=== PATIENT | male | born 1955 | race Caucasian/White ===

== ENCOUNTER 2018-07-16 14:17 | Inpatient (IN) ==
--- NOTE | 2018-07-16 15:01 | PROVIDER DOCUMENTATION ---
This chart was entered by Noemi Rolon Scribe, acting as scribe for Justa Tse MD. HPI-Rash/Wound/ReCheck - General Chief Complaint: Seizure Stated Complaint: seizure Time Seen by Provider: 07/16/18 14:36 Source: patient Allergies/Adverse Reactions: Allergies Allergy/AdvReac Type Severity Reaction Status Date / Time No Known Allergies Allergy Verified 12/07/17 11:50 Home Medications: Home Medication List Medication Instructions Recorded Confirmed Last Taken Type Sertraline [Zoloft] 100 mg PO DAILY 12/07/17 07/16/18 04/24/18 History Dronabinol [Marinol] 5 mg PO BID 03/12/18 07/16/18 04/24/18 History Ondansetron HCl [Zofran] 4 mg PO Q6-8H PRN PRN 03/26/18 07/16/18 04/24/18 History Hydrocodone/Acetaminophen [[place] 7.5 each PO Q6H PRN PRN 04/24/18 07/16/1804/24 History 7.5-325 Tablet] Dexamethasone 4 mg PO TID 07/16/18 07/16/18 Unknown History Digoxin 125 mcg PO DAILY 07/16/18 07/16/18 Unknown History - History of Present Illness-Dermatology Nature of Presenting Problem: Patient is a 63 year old male who presents to the ED with pain and erythema to right inner elbow post IV access last Sunday, 4 daysago. Patient states symptoms have been present for 3 days. Patient has a history of colon cancer with mets to liver. Patient does not report fever. Seen at [facility] today and had a witness focal seizure by staff. Concern about mets to brain. Location: reports: upper extremity (right inner elbow) Quality: reports: painful Severity: reports: moderate Onset/Duration: reports: 3 days ago Timing: reports: still present Context/Associated Symptoms: reports: other (erythema) Locality of Occurance: Home Similar Symptoms Previously?: Yes Recently seen or treated by another doctor?: Yes Review of Systems - Adult - REVIEW OF SYSTEMS - ADULT Constitutional: reports: no symptoms reported Eyes: reports: no symptoms reported Ears, Nose, Mouth & Throat: reports: no symptoms reported Cardiovascular: reports: no symptoms reported Respiratory: reports: no symptoms reported Gastrointestinal: reports: no symptoms reported Genitourinary: reports: no symptoms reported Musculoskeletal: reports: other (right inner elbow pain). denies: back pain, joint pain, neck pain Integumentary: reports: other (erythema to right inner elbow). denies: hives, itching, rash Neurological: reports: no symptoms reported Psychiatric: reports: no symptoms reported Endocrine: reports: no symptoms reported Hematologic/Lymphatic: reports: no symptoms reported Allergic/Immunologic: reports: no symptoms reported All Other Systems: Reviewed and Negative Past History - Adult - PAST MEDICAL HISTORY-ADULT Review of Records: reports: Nursing Assessment Review, Medications Reviewed, Social history reviewed & non-contributory. Major Childhood Illnesses: reports: denies history Cardiovascular: reports: A-Fib Respiratory: reports: denies history Gastrointestinal: reports: cancer, hepatitis, ulcer Obstetrical/Gynecological: reports: denies history Genitourinary: reports: kidney stones Musculoskeletal: reports: denies history Neurological: reports: denies history Psychiatric: reports: anxiety, bipolar Endocrine/Immune: reports: denies history Other Conditions: reports: denies history - PRIOR SURGERIES/PROCEDURES Surgical/Procedure History: reports: bowel surgery, gastric bypass - IMMUNIZATION STATUS Childhood Immunizations: See Nurse Assessment Flu Vaccine: See Nurse Assessment - FAMILY HISTORY Family History: reviewed, not pertinent - SOCIAL HISTORY Smoking: cigarettes, less than 1 pack/day Provider spent 3-5 mins advising pt. on dangers of tobacco.: Discussed manners to quit use, and f/u contacts for add'l counseling. Substance Use: alcohol Alcohol Use Frequency: occasionally Physical Exam-General - CONSTITUTIONAL General Appearance: no apparent distress - EYES Eyes: pink conjunctivae - HEAD, EARS, NOSE, MOUTH & THROAT HENMT: moist mucous membranes - NECK Neck: supple - RESPIRATORY Respiratory: lungs clear, normal breath sounds, no pleuratic chest pain, no accessory muscle use - CARDIOVASCULAR Cardiovascular: normal peripheral pulses - GASTROINTESTINAL (ABDOMEN) Abdominal Exam: non tender, soft, other (diminished bowel sounds diffusely) - MUSCULOSKELETAL Extremity: other (RUE AC area diffuse redness moving up arm, no induration or fluctuance, tender, good cap refill and pulses) - SKIN Integumentary: normal turgor, warm/dry - NEUROLOGIC Neurologic: grossly normal, no motor/sensory deficits - PSYCHIATRIC Psych/Mental Status: normal mood/affect, normal thought content, normal thought process, oriented x 3 Progress - PLAN OF CARE/RESULTS Progress/Plan/Lab Results: Vital Signs - 8 hr 07/16/18 14:29 07/16/18 16:01 Temperature 98.1 F Pulse Rate 110 H 85 Respiratory Rate 18 18 Blood Pressure 117/83 134/78 O2 Sat by Pulse Oximetry 98 96 Laboratory Results - last 24 hr 07/16/18 07/16/18 07/16/18 14:47 14:47 16:29 WBC 19.73 H RBC 3.39 L Hgb 11.2 L Hct 35.2 L MCV 103.8 H MCH 33.0 H MCHC 31.8 L RDW Std Deviation 17.1 H Plt Count 130 MPV 10.5 H Immature Gran % (Auto) 0.3 Neut % (Auto) 90.5 H Lymph % (Auto) 3.9 L [place] % (Auto) 4.9 Eos % (Auto) 0.3 Baso % (Auto) 0.1 Immature Gran # (Auto) 0.05 H Neut # (Auto) 17.88 H Lymph # (Auto) 0.76 L [place] # (Auto) 0.97 H Eos # (Auto) 0.06 Baso # (Auto) 0.01 Sodium 136 Potassium 4.3 Chloride 103 Carbon Dioxide 25 Anion Gap 8 BUN 23 H Creatinine 0.5 L Estimated GFR/1.73 m2 > 60 BUN/Creatinine Ratio 46 Glucose 112 H Calculated Osmolality 276 Calcium 8.6 L Total Bilirubin 0.88 AST 42 H ALT 53 H Alkaline Phosphatase 231 H Total Protein 5.7 L Albumin 3.3 L Globulin 2.4 Albumin/Globulin Ratio 1.4 Urine Source CLEAN CATCH Urine Color YELLOW Urine Turbidity CLEAR Urine pH 6.0 Ur Specific [place] 1.014 Urine Protein NEGATIVE Ur Glucose (Stick) NEGATIVE Ur Ketones (Stick) NEGATIVE Urine Blood LARGE A Urine Nitrite NEGATIVE Urine Bilirubin NEGATIVE Urobilinogen Dipstick NORMAL Urine Leukocytes TRACE A Urine WBC (Auto) <10 Urine RBC (Auto) TNTC A U Epithel Cells (Auto) <10 Urine Bacteria (Auto) NEGATIVE Orders Category Date Time Status CHEST-PORTABLE [RAD] Stat Exams 07/16/18 15:[address] HEAD W/O CONTRAST [CT] Stat Exams 07/16/18 15:04 Completed BLOOD CULTURE [BLDCUL] Stat Lab 07/16/18 14:47 Results CBC WITH ELECTRONIC DIFF [HEME] Stat Lab 07/16/18 14:47 Completed COMPREHENSIVE METABOLIC PANEL [CHEM] Stat Lab 07/16/18 14:47 Completed INFLUENZA SCREEN A/B Stat Lab 07/16/18 17:03 Uncollected URINALYSIS [URINALYSIS] Stat Lab 07/16/18 16:29 Completed 0.9% Sodium Chloride Inj [Ns] 1,000 ml Med 07/16/18 17:03 Active IV 125 mls/hr 0.9% Sodium Chloride Inj [Ns] 1,000 ml Med 07/16/18 15:07 Discontinued IV 500 mls/hr CefTRIAXONE [Rocephin] 1 gm Med 07/16/18 15:08 Discontinued 0.9% Sodium Chloride Inj [Ns] 50 ml IV NOW Vancomycin 1 gm/Ns Med 07/16/18 15:09 Discontinued 1 gm in 250 ml IV NOW Generalized Adult Illness >60 Stat Oth 07/16/18 15:01 Ordered EKG [EKG] Stat Ther 07/16/18 15:01 Draft d/w [place] 1716 HPI onc at his office cellulitis R arm, focal seizure, results treatment, admit to [facility] Result Diagrams: 07/16/18 14:47 07/16/18 14:47 - EKG 1 Time of EKG reading by physician:: 15:01 EKG Read and Signed by:: Justa Tse EKG Interpretation (*Must complete 3 of following elements*): Abnormal Rate: 117 Rhythm: atrial fibrillation with rapid ventricular response Comments: cannot rule out anterior infarct, age undetermined Departure - Departure Date of Disposition Decision: 07/16/18 Time of Disposition Decision: 17:06 DIAGNOSIS: Right arm cellulitis, Focal seizure, Colon cancer metastasized to liver Disposition: ADMITTED INPATIENT 09 Certified Medical Emergency: Emergent Condition: Good Additional Freetext Instructions: admit 1717 to [facility] Referrals and Follow-Ups: None,PCP [Primary Care Provider] - - Critical Care Note This patient required my direct & personal management of CC.: No Attestation - Physician/ MARGARET Attestation The physician spent face to face time with patient:: Yes Advanced Practice Provider documentation review:: Supervising physician onsite and consulted in the evaluation and care of this patient. The physician did have a face to face encounter with the patient. This chart was documented by the indicated scribe, (Noemi Rolon Scribe) and accurately reflects the services I performed and decisions made by me, Justa Tse MD, as attested by the provider's signature.
[2018-07-16] MEDS ORDERED: NS 1,000 ML IV ONE ×2 (15:07→17:03)
[2018-07-16] MEDS ORDERED: ROCEPHIN 1 GM in NS 50 ML IV ONE (15:08)
[2018-07-16] MEDS ORDERED: VANCOMYCIN 1 GM/NS 1 GM/250 ML IVPB IV ONE ×2 (15:09→22:00)
[2018-07-16 15:32] LABS: BASO# 0.01 X1000 (0.0-0.2); BASO% 0.1 % (0.0-0.8); EOS# 0.06 X1000 (0.0-0.7); EOS% 0.3 % (0.0-10.0); HEMATOCRIT 35.2 % (42.0-52.0); HEMOGLOBIN 11.2 g/dL (14.0-18.0); IMM GRAN# 0.05 X1000 (0.0-0.04); IMM GRAN% 0.3 % (0.0-0.5); LYMPH# 0.76 X1000 (1.2-3.4); LYMPH% 3.9 % (20.5-51.1); MCHC 31.8 g/dL (33-37); MCV 103.8 FL (81-99); MONO# 0.97 X1000 (0.11-0.59); MONO% 4.9 % (1.7-9.3); MPV 10.5 FL (7.4-10.4); NEUT# 17.88 X1000 (1.4-6.5); NEUT% 90.5 % (42.2-75.2); PLT 130 X1000 (130-400); RBC 3.39 XMIL (4.7-6.1); RDW 17.1 % (11.5-14.5); WBC 19.73 X1000 (4.8-10.8)
--- NOTE | 2018-07-16 15:42 | Diag Imaging Result Doc PS360 ---
EXAM: CT HEAD W/O CONTRAST HISTORY: seizure TECHNIQUE: CT head without contrast COMPARISON: 10/11/2017 FINDINGS: No parenchymal hemorrhage. No epidural or subdural hematoma. No subarachnoid hemorrhage. No mass identified on this noncontrasted exam. No hydrocephalus. No sinus opacification. IMPRESSION: No hemorrhage. Negative brain CT without contrast. This exam was performed using automated exposure control, adjustment of mA or kV according to patient size, and/or use of iterative reconstruction technique. Electronically signed by Devyn Hernandez 07/16/2018 3:40 PM
--- NOTE | 2018-07-16 15:43 | EKG Report ---
Test Performed on : 07/16/2018 3:01:46 PM Test Reason : weakness Blood Pressure : / mmHG Vent. Rate : 117 BPM Atrial Rate : 115 BPM P-R Int : 000 ms QRS Dur : 076 ms QT Int : 302 ms P-R-T Axes : 000 085 008 degrees QTc Int : 421 ms Atrial fibrillation. with rapid ventricular response. Cannot rule out Anterior infarct (cited on or before 08-NOV-2017) Abnormal ECG When compared with ECG of 08-NOV-2017 12:35, No significant change was found Unconfirmed Result
--- NOTE | 2018-07-16 15:49 | Diag Imaging Result Doc PS360 ---
EXAM: CHEST-PORTABLE HISTORY: weakness TECHNIQUE: Upright sitting chest single view COMPARISON: 11/08/2017 FINDINGS: The lungs are well expanded. The heart is not enlarged. There is a right jugular portacatheter. Tip is in the jugular vein. No pneumothorax. The vessels are not distended. There are no infiltrates. No effusion identified. IMPRESSION: No pneumonia. Electronically signed by Devyn Hernandez 07/16/2018 3:46 PM
[2018-07-16 16:09] LABS: AGAP 8; ALB/GLOB RATIO 1.4; ALBUMIN 3.3 g/dL (3.5-5.0); ALKALINE PHOSPHATASE 231 U/L (32-122); BUN 23 mg/dL (8-22); CALCIUM 8.6 mg/dL (8.8-10.2); CHLORIDE 103 mmol/L (98-107); COSMO 276; CREATININE 0.5 mg/dL (0.7-1.2); ESTIMATED GFR > 60; GLUCOSE 112 mg/dL (70-104); GOT 42 U/L (10-34); GPT 53 U/L (10-44); POTASSIUM 4.3 mmol/L (3.5-5.1); SODIUM 136 mmol/L (136-145); TCO2 25 mmol/L (25-35); TOTAL BILIRUBIN 0.88 mg/dL (0.20-1.00); TOTAL PROTEIN 5.7 g/dL (6.3-8.3)
[2018-07-16 16:40] LABS: URINE SOURCE CLEAN CATCH
[2018-07-16 16:42] LABS: BILIRUBIN URINE NEGATIVE (NEGATIVE); BLOOD URINE LARGE (NEGATIVE); COLOR YELLOW; GLUCOSE URINE NEGATIVE (NEGATIVE); KETONE URINE NEGATIVE (NEGATIVE); LEUKOCYTES URINE TRACE (NEGATIVE); NITRITE URINE NEGATIVE (NEGATIVE); PROTEIN URINE NEGATIVE (NEGATIVE); SP GRAVITY URINE 1.014; TURBIDITY URINE CLEAR (CLEAR); UROBILINOGEN URINE NORMAL (NORMAL)
[2018-07-16 16:43] LABS: UR EPITHELIAL CELLS <10 /HPF (<10); URINE BACTERIA NEGATIVE /HPF; URINE RBC TNTC /HPF (<10); URINE WBC <10 /HPF (<10)
[2018-07-16] MEDS ORDERED: CARDIZEM IV ONE (18:01)
[2018-07-16] MEDS ORDERED: CARDIZEM 125/NS 125 MG/125 ML IVPB IV SCH (18:15)
--- NOTE | 2018-07-16 18:34 | Diag Imaging Result Doc PS360 ---
EXAM: ELBOW COMPLETE RIGHT HISTORY: ro osteo/abscess TECHNIQUE: Right elbow, three views COMPARISON: None. FINDINGS: No fracture. No dislocation. No periosteal reaction. No bone destruction. No erosions. IMPRESSION: No plain film evidence of osteomyelitis. Electronically signed by Devyn Hernandez 07/16/2018 6:32 PM
[2018-07-16] MEDS ORDERED: ATIVAN IV PRN (18:58)
[2018-07-16] MEDS ORDERED: ZOFRAN IV PRN (18:58)
[2018-07-16 19:34] LABS: INR 1.02; PROTIME 14.2 Seconds (11.0-16.0)
[2018-07-16 19:35] LABS: PTT 27.7 Seconds (22.3-41.8)
--- NOTE | 2018-07-16 19:56 | HISTORY AND PHYSICAL ---
ONCOLOGIST: Kris Fountain MD PRIMARY CARE PROVIDER: None. CHIEF COMPLAINT: Right upper extremity pain. The patient reports that he received chemo at [facility] in his peripheral vein and since that time, he has had soreness and now erythema and redness. HISTORY OF PRESENT ILLNESS: Mr. Echevarria is a 63-year-old male who is a patient of Dr. Fountain with a history of metastatic colon cancer, status post transverse diverting loop colostomy secondary to his metastatic obstructive colon cancer, atrial fibrillation and he states he has been taken off all his atrial fibrillation medications secondary to receiving chemo and interacting with the medications, tobacco dependence, GERD, anemia chronic disease, alcohol use of 1 to 2 beers per week. He was at Dr. Fountain's office today and per the staff, they believe they witnessed a focal seizure. However, patient has no recollection of this. His main concern is his right upper extremity pain. He does have redness, swelling, and erythema. We will get an x-ray of his upper extremity, rule out any osteomyelitis and/or abscess. We will continue on vancomycin. He was also noted to be in atrial fibrillation upon admission. However, his rate was more controlled in the 120s. He is now in atrial fibrillation with RVR in the 160s. We will give him IV Cardizem bolus and start him on IV Cardizem drip and move him to CIC, place on seizure precautions, and will give him Ativan for any breakthrough. PAST MEDICAL HISTORY: 1. Hepatitis C at the age of 21. He states that he was attempting to donate blood. They called and told him he had hepatitis C and he has never received treatment. 2. Chronic atrial fibrillation. The patient has not been on his home medications. He said they interact with his chemo medications. 3. Bipolar disorder. 4. Peptic ulcer disease with bleeding ulcer 25 years ago. 5. Left eye cataract. 6. Right sciatica. 7. Bilateral peripheral neuropathy. 8. Metastatic colon cancer status post transverse diverting loop colostomy. 9. Tobacco dependence. 10. Gastroesophageal reflux disease. 11. Anemia of chronic disease. 12. Kidney stones for which he was being worked up at [facility] to have removal with Dr. Barillas. 13. Bilateral lower extremity swelling for which he had recently been put on p.o. Lasix. PAST SURGICAL HISTORY: 1. Gastric surgery for bleeding ulcer in the . 2. Tonsillectomy. 3. Cystoscopy and kidney stone removal. 4. Liver biopsy on 11/02/2017. 5. Transverse diverting loop colostomy secondary to his metastatic obstructive colon cancer. SOCIAL HISTORY: He is a 1 pack per day smoker for 40 years. Earlier in October 2017 he dropped down to half a pack per day. He continues to drink 1 to 2 beers per week. At one point he used cocaine once or twice a month but stopped using back in October. He rarely smokes marijuana. No other illicit drug use noted. He lives with his son and common-law . FAMILY HISTORY: Mother with diabetes mellitus type 2. Daughter who at the age of 23 due to type 1 diabetes. ALLERGIES: No known drug allergies. CURRENT HOME MEDICATIONS: 1. Dexamethasone 4 mg p.o. t.i.d. 2. Digoxin 125 mcg p.o. daily. 3. Marinol 5 mg p.o. b.i.d. 4. [place] 7.5 p.o. q.6 h. p.r.n. 5. Zofran 4 mg p.o. q.6-8 h. p.r.n. 6. Zoloft 100 mg p.o. daily. 7. The patient also noted to have Percocet in his medication bag as well. REVIEW OF SYSTEMS: Patient denies any headache, any fever, any chills. No chest pain. No palpitations. No shortness of breath. He does complain of right upper extremity pain, redness and heat, extremely sore to the touch. PHYSICAL EXAMINATION: VITAL SIGNS: Temperature is 98.1 degrees, heart rate is anywhere from 160s down to 85, respirations 18, blood pressure 134/78. GENERAL: Mr. Echevarria is a 63-year-old male who is complaining of being hungry. He is lying on the stretcher in no acute distress. HEENT: Atraumatic, normocephalic. PERRL. NECK: Supple. Trachea midline. CARDIOVASCULAR: S1, S2. Irregular rate and rhythm noted. No murmurs, gallops , or rubs noted. No JVD noted. He does have bilateral lower extremity pitting edema. RESPIRATORY: Lung sounds clear to excursion. Nonlabored breathing. GASTROINTESTINAL: Soft, nontender, nondistended. He does have a colostomy bag noted to the left. SKIN: He does have old IV site on the right upper extremity that is swollen, erythematous, and painful to the touch. NEUROLOGIC: Patient is alert and oriented x4. Follows commands. Moves all extremities. DIAGNOSTIC DATA: 1. Head CT was no hemorrhage. Negative brain CT without contrast. 2. Chest x-ray: No pneumonia. 3. EKG showed atrial fibrillation with RVR at 170 beats per minute. LABORATORY DATA: White count 19, hemoglobin and hematocrit of 11 and 35, platelet count is 130,000. Sodium 136, potassium 4.3, BUN 23, creatinine 0.5, blood glucose is 112, AST 42, ALT 53, alkaline phosphatase 231. Albumin 3.3. Urinalysis shows large blood, too numerous to count WBCs, negative for nitrates, negative for bacteria. ASSESSMENT AND PLAN: 1. Atrial fibrillation with rapid ventricular response. We will give IV Cardizem bolus and place him on IV Cardizem drip. Consult Cardiology. Place him on CIC with telemetry. 2. Right upper extremity cellulitis. Patient received chemotherapy through a peripheral IV. Per his report they did not give it through his port because they were not familiar with the line I believe at [facility]. He was in [facility] being worked up to have renal stone removed and had his chemo treatment while he was there. We will continue him on vancomycin and obtain an x-ray to rule out any osteomyelitis or abscess and we will consult General Surgery or Infectious Disease if the patient's arm does not improve the a.m. 3. Metastatic obstructive colon cancer status post transverse diverting loop colostomy. Aware. The patient came from Dr. Fountain's office. 4. Questionable focal seizure. The patient states that he did not have a seizure. He has no history of seizures. However, this was witnessed by nursing staff at Dr. Fountain's office. We will place him on seizure precautions, consult Neurology, and provide Ativan 1 to 2 mg p.r.n. for any seizures. 5. Hepatitis C history. Aware. The patient does have transaminitis. 6. Bipolar. 7. Peptic ulcer disease with a bleeding ulcer 25 years ago. Will continue on PPI. 8. Bilateral lower extremity edema. The patient states he was recently put on p.o. Lasix. 9. Right renal stone. Patient again was awaiting to have surgery to remove the renal stone. We will consult Urology if appropriate. Continue with IV hydration. 10. Further recommendations to follow physician evaluation, laboratory, and diagnostic data. Dictated by BALDO Szymanski for Og Florence MD cc: MD Kartik Hunter MD Sammy Becdach, MD Eston G. Norwood III, MD Patient seen and examined by me. I agree with the assessment and plan of the [employer]OT[employer] T[employer] OPERATOR. Dr. Florence. FIDELIA
[2018-07-16] MEDS ORDERED: VANCOMYCIN 2,000 MG in NS 500 ML IV ONE (20:00)
[2018-07-16] MEDS: PERCOCET-10 PO PRN (22:03)
[2018-07-17 05:26] LABS: BASO# 0.01 X1000 (0.0-0.2); EOS# 0.04 X1000 (0.0-0.7); EOS% 0.2 % (0.0-10.0); HEMATOCRIT 32.3 % (42.0-52.0); HEMOGLOBIN 10.3 g/dL (14.0-18.0); IMM GRAN# 0.05 X1000 (0.0-0.04); IMM GRAN% 0.2 % (0.0-0.5); LYMPH# 1.07 X1000 (1.2-3.4); LYMPH% 4.6 % (20.5-51.1); MCHC 31.9 g/dL (33-37); MCV 103.5 FL (81-99); MONO# 1.36 X1000 (0.11-0.59); MONO% 5.8 % (1.7-9.3); MPV 10.5 FL (7.4-10.4); NEUT# 20.97 X1000 (1.4-6.5); NEUT% 89.2 % (42.2-75.2); PLT 131 X1000 (130-400); RBC 3.12 XMIL (4.7-6.1)
[2018-07-17 05:37] LABS: AGAP 7; ALB/GLOB RATIO 1.2; ALBUMIN 2.8 g/dL (3.5-5.0); ALKALINE PHOSPHATASE 157 U/L (32-122); BUN 22 mg/dL (8-22); CALCIUM 8.4 mg/dL (8.8-10.2); CHLORIDE 105 mmol/L (98-107); COSMO 283; CREATININE 0.5 mg/dL (0.7-1.2); ESTIMATED GFR > 60; GLUCOSE 130 mg/dL (70-104); GOT 31 U/L (10-34); GPT 42 U/L (10-44); MAGNESIUM 1.5 mg/dL (1.5-2.7); POTASSIUM 4.2 mmol/L (3.5-5.1); SODIUM 139 mmol/L (136-145); TCO2 27 mmol/L (25-35); TOTAL BILIRUBIN 0.96 mg/dL (0.20-1.00); TOTAL PROTEIN 5.2 g/dL (6.3-8.3)
[2018-07-17] MEDS: PERCOCET-10 PO PRN ×2 (05:58→11:11)
[2018-07-17 06:01] LABS: LYMPHS 6 % (21-51); MONO 4 % (1-9); SEGS 90 % (42-75)
--- NOTE | 2018-07-17 07:23 | EKG Report ---
Test Performed on : 07/16/2018 5:49:33 PM Test Reason : reassess afib Blood Pressure : / mmHG Vent. Rate : 112 BPM Atrial Rate : 085 BPM P-R Int : 000 ms QRS Dur : 076 ms QT Int : 312 ms P-R-T Axes : 000 074 -07 degrees QTc Int : 425 ms Atrial fibrillation. with rapid ventricular response. Abnormal QRS-T angle, consider primary T wave abnormality Abnormal ECG When compared with ECG of 16-JUL-2018 15:01, (Unconfirmed) No significant change was found Unconfirmed Result
--- NOTE | 2018-07-17 07:39 | Diag Imaging Result Doc PS360 ---
EXAM: CHEST-PORTABLE HISTORY: follow up TECHNIQUE: Chest single view COMPARISON: 07/16/2018 FINDINGS: No change in the right jugular portacatheter. No pneumothorax. The lungs are well expanded. No cardiomegaly. There are no infiltrates. Small nodular density in the mid left lung is unchanged. No pleural effusions identified. The right hemidiaphragm is elevated. IMPRESSION: Stable chest. Electronically signed by Devyn Hernandez 07/17/2018 7:36 AM
[2018-07-17] MEDS: VANCOMYCIN 1,250 MG in NS 250 ML IV SCH ×2 (09:09→20:25)
[2018-07-17] MEDS: PROTONIX IV SCH (11:05)
[2018-07-17] MEDS: CARDIZEM PO SCH ×2 (11:05→13:52)
[2018-07-17] MEDS: LASIX PO SCH (11:05)
[2018-07-17] MEDS: ZOSYN 3.375 GM in NS 50 ML IV SCH ×2 (11:11→16:55)
--- NOTE | 2018-07-17 11:11 | PROGRESS NOTE ---
DATE: 07/17/2018 SUBJECTIVE: The patient is resting in bed. OBJECTIVE: Vital Signs: Temperature 98.9 degrees, pulse 95, respiratory rate 17, blood pressure is 133/72, oxygen saturation is 100%. HEENT: Atraumatic, normocephalic. Cardiovascular: S1, S2 irregular. Respiratory: Has evidence of good air entry bilaterally. Abdomen: Has ostomy in place. Extremities: Has edema in both lower extremities. Central Nervous System: No obvious focal deficits noted. LABORATORY DATA: WBC is 23.5, hematocrit is 32.3, with a platelet count of 131,000. Sodium is 139, potassium 4.2, chloride is 105, bicarb 27, BUN is 22, creatinine 0.5. UA shows a large amount of blood with trace amount of leukocytes. ASSESSMENT AND PLAN: 1. Atrial fibrillation with rapid ventricular rate. Continue rate-controlling agent. Cardiology team following. 2. Cellulitis of the right upper extremity. Continue antibiotics. The patient is currently on intravenous vancomycin as well as Zosyn. Follow up on wound cultures. 3. History of colon cancer, status post transverse diverting loop colostomy. Consult with Oncology team. 4. Questionable history of seizures. Maintain the patient on seizure precaution. Neurology consulted. 5. History of hepatitis C. Follow up with Gastroenterology post discharge. 6. History of bipolar disorder. Patient currently not taking any medication for this condition. He will need psychiatric evaluation at some point to determine need for therapeutic intervention. 7. Peptic ulcer disease. Continue proton pump inhibitor. 8. Bilateral lower extremity edema. Obtain venous Doppler of both lower extremities and also 2D echocardiogram of the heart, and maintain the patient on diuretics. Monitor intake and output and daily weights. 9. History of nephrolithiasis. Urinalysis shows a lot of blood. Maintain the patient on intravenous hydration. Obtain CT scan of the abdomen without contrast. 10. Deep vein thrombosis prophylaxis. Sequential compression devices. 11. Gastrointestinal prophylaxis. Proton pump inhibitor. cc: Og Florence MD
--- NOTE | 2018-07-17 13:02 | CONSULTATION ---
DATE OF CONSULTATION: 07/17/2018 IMPRESSION: 1. Chronic atrial fibrillation currently with rapid ventricular rate in the setting of recent withdrawal of CV medications. 2. Right upper extremity cellulitis. 3. Metastatic colon cancer. 4. Bilateral lower extremity edema. RECOMMENDATIONS: 1. Continue IV Cardizem. Transition to oral Cardizem for rate control. 2. Echocardiography. 3. Venous Doppler study of lower extremities. 4. Resume anticoagulation when acceptable from an overall medical standpoint. HISTORY: This 63-year-old white male with past history of chronic atrial fibrillation, metastatic colon cancer, previous resection of colon cancer and colostomy, hepatitis C, chronic smoking, and bipolar disorder was admitted for further management of right upper extremity cellulitis. He had a right antecubital IV access a week or so ago. Since then, he developed progressive erythema and pain in the right upper extremity with appearance consistent with cellulitis. He has been off some of his cardiovascular medications, including anticoagulation with Xarelto. He returned to Oncology Clinic and was found to have evidence of right upper extremity cellulitis, and for this reason he was admitted. He has been found to be in atrial fibrillation with rapid ventricular rate. He started on IV Cardizem. He is asymptomatic from a cardiovascular standpoint. PAST MEDICAL HISTORY: 1. Hepatitis C infection, chronic. 2. Chronic atrial fibrillation. 3. Bipolar disorder. 4. Metastatic colon cancer with the history of previous resection and colostomy. 5. Peptic ulcer disease. 6. Gastroesophageal reflux disease. 7. Nephrolithiasis. 8. Anemia. 9. Status post transverse diverting loop colostomy secondary to colon cancer and associated obstruction. He is also status post tonsillectomy, unspecified gastric surgery for ulcers, cystoscopy with kidney stone extraction, and liver biopsy. 10. He has no known drug allergies. MEDICATIONS PRIOR TO ADMISSION: As listed. 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 He smokes cigarettes at a rate of 1 pack of cigarettes per day for 40 years. He has history of alcohol consumption, as well as polysubstance abuse with cocaine and marijuana. FAMILY HISTORY: Negative for premature coronary disease. REVIEW OF SYSTEMS: Pulmonary: Noteworthy for chronic exertional dyspnea. Gastrointestinal: Noncontributory beyond history present illness. Constitutional: Noncontributory beyond history of present illness. The remainder of the review of systems negative/noncontributory beyond history of present illness with 14 total systems reviewed. PHYSICAL EXAMINATION: General: He is an older white male in no distress. He appears older than stated age. Vital signs: Blood pressure 133/72, heart rate 95 and irregular. Weight 132 pounds. HEENT exam: Extraocular movements appear intact. Mucous membranes are moist without significant jugular venous distention. Chest: Clear to auscultation. Cardiac Exam: Reveals an irregular rate and rhythm without appreciable murmur or gallop. Abdomen: Soft. Bowel sounds audible. Colostomy is in place with soft bowel sounds audible. Colostomy is present. Extremities: Demonstrate mild pitting ankle edema bilaterally. There are some venous stasis changes. Neurologic Exam: Reveals him to be alert and responsive. Speech is fluent. Moves all 4 extremities equally well. X-RAY DATA: EKG demonstrates atrial fibrillation with rapid ventricular rate. LABORATORY DATA: Lab data includes sodium 139, potassium 4.2, chloride 105, carbon dioxide 27. BUN 22, creatinine 0.5, glucose 130. CPK 52, troponin-T less than 0.01. White blood cell count 23.5, hematocrit 32.3, hemoglobin 10.3, platelet count 131. cc: Jose Hurd MD
--- NOTE | 2018-07-17 13:22 | CONSULTATION ---
DATE OF CONSULTATION: 07/17/2018 HISTORY OF PRESENT ILLNESS: The patient is in [facility] bed 11. Mr. Echevarria is 63 years old, and there is question of recent focal motor seizure. History from the patient is that he was in another hospital last week for management of kidney stone and was discovered to have atrial fibrillation requiring kidney stone procedure to be postponed. (He reports longstanding knowledge of atrial fibrillation, recent more prominent arrhythmia associated with stopping some of his medicines.) He reports spending 4 days in that hospital, not having the kidney stone managed. After discharge, he noticed right arm redness, pain, edema, tightness over the antecubital fossa. He presented to this hospital with evidence of right arm cellulitis. Yesterday, he was having his arm evaluated by his oncologist and had a sense that he was "in a trance," and that he could hear staff talking to him, but that he was not able to respond well. Right arm pain was more intense. He believes that lasted about 15 minutes. Afterwards, he believes right arm was weaker than baseline. He did not notice specific inability to speak or inability to understand language. He did not notice new vision loss or new problem with his legs. I do not have a detailed firsthand witness account of the episode yesterday. He reports possibly a similar episode occurring about a year ago when family noticed, "They said I was trying to swallow my tongue, but I do not remember that." He believes his sense then was "in a trance" similar to what he experienced yesterday. Review of records on computer shows on 10/12/[address] of the head was unremarkable. We do not have MRI reported in this system. Echocardiogram showed atrial fibrillation, but no definite source of embolus. Carotid ultrasound showed mild stenosis in the proximal internal carotid artery bilaterally, nothing more prominent, no hemodynamically significant stenosis. There was report by family of transient left facial drooping, but I do not think that was documented. He reports no other episodes of altered awareness, trancelike state, sree seizure, diagnosed stroke or other neurologic event. He had head injury in his 20s, but no more recent head injury. He has never had problems with fainting. There is history of multiple illicit substance use and ethanol abuse in years past. These problems were still current when he presented last year. Today, he told me he has not used ethanol to a significant degree in 8 months. He denies illicit drug use, other than cannabis, since then. He reports no recent benzodiazepine use. DIAGNOSTIC DATA: Workup here includes noncontrast CT of the head showing nothing remarkable. Lab showed initial WBC 19,730, later 23,500. Chemistry showed mildly elevated blood sugar and liver enzymes. We do not have urine drug screen this admission. HOME MEDICINES: Include dexamethasone, oxycodone/acetaminophen and hydrocodone/ acetaminophen, ondansetron, sertraline, Marinol, digoxin. Anticoagulant medicine had been stopped. PAST MEDICAL HISTORY/SOCIAL HISTORY: There is reported past history of metastatic colon cancer, managed with colostomy and chemotherapy, atrial fibrillation as above, bipolar disorder. He continues to smoke cigarettes. He has right arm cellulitis as above. PHYSICAL EXAMINATION: Heart rate has ranged 70s to 140s. Systolic blood pressures have been recorded 100s to 130s. He has been afebrile here. On exam, Mr. Echevarria is awake, alert, attentive, and appropriate. He did very well on careful, close language testing at the bedside. Speech is not dysarthric. Recent and remote memory are good. Head and neck are unremarkable. There is no meningismus. He has extremely poor vision in the left eye, possibly light perception only. In the right eye, acuity is poor , but he can count fingers in all mcdonald. Facial sensation is intact to pinprick testing. Facial motility is symmetric now. Gag is intact. Tongue is midline. Shoulder shrug is good bilaterally. Strength is normal in all groups in the left arm. On the right, he guards and splints and is not able to demonstrate full power because of discomfort associated with cellulitis. He made a very firm fist on the right. He demonstrated good power in the right hand muscles and right shoulder muscles, but was not able to show full power at the right biceps, triceps, pronator, wrist extensors. In the legs, tone is diminished bilaterally. He has good power in each leg. He reports diminished pinprick appreciation in a stocking pattern bilaterally. He has good pinprick appreciation over the right hand and the left. Proprioception is diminished at the great toe MTP joint bilaterally. Reflexes are absent at the ankles, 2+ at the knees, 1+ symmetrically at the wrists. I did not test his gait. IMPRESSION AND PLAN: Recent episode of altered awareness, possible focal seizure. History a year ago seems to have been somewhat similar. He may have had other episodes that he does not recall. If this is a focal seizure, explanation is not certain. Metastatic colon cancer to the brain would be most worrisome, but negative CT is reassuring and I do not see clinical evidence of brain lesion. If MRI is not contraindicated, brain MRI with contrast would be reasonable, but not urgent. I have ordered EEG. Further plans will depend on that report and on his clinical course. For his right arm pain, he reports hydrocodone and oxycodone are not effective, but 1 dose of morphine recently provided significant benefit over a few hours. He likely has significant opiate tolerance, and I think it would be reasonable to treat with morphine or other higher level opiate as needed. Thanks for asking Neurology to see Mr. Echevarria. cc: MD FIDELIA Weston III
--- NOTE | 2018-07-17 16:44 | Diag Imaging Result Doc PS360 ---
EXAM: CT ABDOMEN/PELVIS W/O CONTRAST 07/17/2018 HISTORY: nephrolithiasis TECHNIQUE: This exam was performed using automated exposure control, adjustment of mA or kV according to patient size, and/or use of iterative reconstruction technique. COMMENT: There are opacities present in the posterior costophrenic sulci of both lower lobes which were much less extensive on the previous study of 10/13/2017. This presumably represents atelectasis or pneumonia. There is a small left pleural effusion. There is ascites particularly in the right subphrenic space. This was not present at the time the previous study. There are multiple calcified liver masses. One in the posterior inferior right lobe next to the gallbladder fossa measures 17 mm in AP dimension which has not changed appreciably since the previous study. The spleen is not enlarged however it has increased in size from 11 cm in transverse dimension compared to 9.5 cm previously. The adrenal glands are apparently stable. There is no evidence of gallstones or kidney stone on the right side. There were several stones in the left renal collecting system including one in the renal pelvis measuring at least 13 mm in dimension. There is some prominence of the left ureter. There is no definite evidence of ureterolithiasis, however there is a 2 mm calculus in the bladder. There is no evidence of bowel obstruction. There is a large amount of retained food in the stomach. There is a transverse colostomy. There are no acute bony abnormalities. IMPRESSION: Left nephrolithiasis. The possibility of a recently passed stone in the urinary bladder is suggested. Ascites. Increasing splenic size. Bibasilar atelectasis versus pneumonia. Otherwise essentially stable since 10/13/2017. Electronically signed by Jay Dixon 07/17/2018 4:41 PM
--- NOTE | 2018-07-17 17:05 | EEG REPORT ---
DATE: 07/17/2018 EEG NUMBER: [id number]. COMMENT: This is a digitally recorded EEG on a 63-year-old patient with recent episode of altered awareness, question of focal motor seizure involving the right arm, possible previous similar episode a year ago. FINDINGS: There is some movement and muscle contraction artifact throughout the record, which does not hinder interpretation. Waking background contains polymorphic and rhythmic beta and theta. There is poorly sustained 9-10 Hz posterior dominant rhythm bilaterally with uncertain reactivity to eye opening. Drowsing occurred briefly. Stage 2 sleep was recorded with symmetric features. Photic stimulation did not significantly alter the record. No definite epileptiform discharge was identified. INTERPRETATION: Normal EEG. CORRELATION: The absence of epileptiform discharges on a single EEG does not exclude a clinical diagnosis of seizure, but there is nothing on this record to confirm the presence of a seizure disorder. cc: Clayton Stokes III, MD MTDD
[2018-07-17] MEDS ORDERED: VANCOMYCIN IV PER PHARMACY MISC SCH (18:15)
[2018-07-17] MEDS: LOPRESSOR PO SCH (20:25)
[2018-07-18] MEDS: ZOSYN 3.375 GM in NS 50 ML IV SCH ×5 (00:13→23:26)
[2018-07-18] MEDS: PERCOCET-10 PO PRN ×3 (00:57→17:40)
[2018-07-18] MEDS: LOPRESSOR PO SCH ×4 (01:02→21:42)
[2018-07-18 05:50] LABS: BASO# 0.02 X1000 (0.0-0.2); BASO% 0.1 % (0.0-0.8); EOS# 0.26 X1000 (0.0-0.7); EOS% 1.6 % (0.0-10.0); HEMATOCRIT 32.5 % (42.0-52.0); HEMOGLOBIN 10.4 g/dL (14.0-18.0); IMM GRAN# 0.03 X1000 (0.0-0.04); IMM GRAN% 0.2 % (0.0-0.5); LYMPH# 1.43 X1000 (1.2-3.4); LYMPH% 9.1 % (20.5-51.1); MCH 32.5 PG (27-31); MCV 101.6 FL (81-99); MONO# 1.28 X1000 (0.11-0.59); MONO% 8.1 % (1.7-9.3); MPV 10.8 FL (7.4-10.4); NEUT# 12.74 X1000 (1.4-6.5); NEUT% 80.9 % (42.2-75.2); PLT 117 X1000 (130-400); RDW 16.1 % (11.5-14.5); WBC 15.76 X1000 (4.8-10.8)
[2018-07-18 06:00] LABS: AGAP 9; ALBUMIN 2.5 g/dL (3.5-5.0); ALKALINE PHOSPHATASE 174 U/L (32-122); BUN 16 mg/dL (8-22); CALCIUM 8.4 mg/dL (8.8-10.2); CHLORIDE 96 mmol/L (98-107); COSMO 269; CREATININE 0.6 mg/dL (0.7-1.2); ESTIMATED GFR > 60; GLUCOSE 92 mg/dL (70-104); GOT 65 U/L (10-34); GPT 50 U/L (10-44); MAGNESIUM 1.4 mg/dL (1.5-2.7); SODIUM 134 mmol/L (136-145); TCO2 29 mmol/L (25-35); TOTAL BILIRUBIN 1.05 mg/dL (0.20-1.00)
--- NOTE | 2018-07-18 06:37 | ECHO REPORT ---
ORDER DATE: 07/17/2018 INDICATIONS: A 63-year-old male with atrial fibrillation, cancer of the colon, question of seizure. M-MODE MEASUREMENTS: Left ventricle end diastole: 4.7 cm. Left ventricle end systole: 2.8 cm. Posterior wall: 1.0 cm. Interventricular septum: 1.0 cm. Left atrium: 4.3 cm. Aortic root: 3.2 cm. SUMMARY OF 2-DIMENSIONAL IMAGIN. The left ventricle shows normal contractility. Ejection fraction is 60%-65% . No wall motion abnormality noted. Right ventricle appears to be mildly enlarged. The left atrium is also moderately enlarged. Right atrium appears to be also mildly to moderately enlarged. 2. Tricuspid valve shows mild regurgitation. 3. Pulmonary artery pressure estimated at 27 to 32 mmHg. 4. Pulmonic valve looks grossly. Color flow mapping indicates mild degree of regurgitation. 5. Aortic valve has 3 cusps. There is very mild degree of regurgitation. 6. Mitral valve shows mild degree of regurgitation. 7. Pulse wave Doppler of mitral inflow shows single filling wave because the patient is in atrial fibrillation. 8. There is no pericardial effusion, mass and no thrombus. Clinical correlation recommended. cc: José Manuel Narayanan MD MTDD
--- NOTE | 2018-07-18 07:12 | EKG Report ---
Test Performed on : 07/18/2018 06:47:18 AM Test Reason : afib Blood Pressure : / mmHG Vent. Rate : 105 BPM Atrial Rate : 110 BPM P-R Int : 000 ms QRS Dur : 078 ms QT Int : 318 ms P-R-T Axes : 000 093 067 degrees QTc Int : 420 ms Atrial fibrillation. with rapid ventricular response. Rightward axis Abnormal ECG When compared with ECG of 16-JUL-2018 17:49, (Unconfirmed) Nonspecific T wave abnormality no longer evident in Inferior leads Confirmed by Leigha BRIGGS, Benedict Mcknight ([id number]) on 07/18/2018 7:19:52 AM
[2018-07-18] MEDS: LASIX PO SCH (09:08)
[2018-07-18] MEDS: KLOR-CON PO SCH (09:09)
[2018-07-18] MEDS: VANCOMYCIN 1,250 MG in NS 250 ML IV SCH ×2 (09:09→21:42)
[2018-07-18] MEDS: SODIUM CHLORIDE 0.9% INJ SCH (11:02)
[2018-07-18] MEDS: PROTONIX IV SCH (11:02)
[2018-07-18] MEDS ORDERED: XARELTO PO SCH (12:00)
--- NOTE | 2018-07-18 12:06 | PROGRESS NOTE ---
DATE: 07/18/2018 SUBJECTIVE: Patient is resting in bed. No new complaints today. OBJECTIVE: Vital Signs: Temperature 98.6, pulse 100, respiratory rate 17, blood pressure 110/60, and oxygen saturation is 99%. HEENT: Atraumatic and normocephalic. Cardiovascular: S1, S2. Irregular. Respiratory: Good air entry bilaterally. Abdomen: Soft, nontender. No masses felt. Extremities: Large area of erythema on the right elbow as well as right arm. Lower extremity has 1 to 2+ edema in the lower extremities. Central nervous system: No obvious focal deficits noted. LABORATORY: WBC is 15.76, hematocrit 32.5 and platelets 117,000. Sodium is 140. Potassium 4, chloride 96, bicarb 29, BUN is 16, creatinine 0.6. CT scan of the abdomen and pelvis done without contrast shows left nephrolithiasis with evidence of ascites. ASSESSMENT AND PLAN: 1. Atrial fibrillation with rapid ventricular rate. The patient has been transitioned to oral metoprolol. 2. Cellulitis right upper extremity. Continue antibiotics specifically Zosyn as well as vancomycin. 3. History of colon cancer status post transverse diverting loop colostomy Oncology consulted. 4. Questionable history of seizures. Maintain patient on seizure precaution. Neurology consulted. 5. History of hepatitis C. Follow up with GI post discharge from the hospital. 6. History of bipolar disorder. The patient not taking any medications for this condition. 7. We will need psychiatric evaluation at some point to determine for operative intervention. 8. Peptic ulcer disease. Continue proton pump inhibitor. 9. Bilateral lower extremity edema. Continue diuretics. 10. History of nephrolithiasis. Aware. Follow up with Urology post discharge from the hospital. 11. Deep vein thrombosis prophylaxis. Sequential compression devices. 12. Gastrointestinal prophylaxis. Proton pump inhibitor. cc: Og Florence MD
--- NOTE | 2018-07-18 12:50 | Diag Imaging Result Doc PS360 ---
CT EXT UPPER RIGHT W/CONT - 07/18/2018 INDICATION: r/o abscess right arm TECHNIQUE: CT of the right arm with intravenous contrast COMPARISON: None FINDINGS: There is diffuse subcutaneous edema about the right upper arm extending to the level of the elbow. There is no focal or drainable fluid collection. No soft tissue gas. There are several somewhat enlarged reactive lymph nodes in the right axilla. All of the arteries and veins of the right arm appear patent. The right lung is clear. Bony structures are intact. IMPRESSION: Extensive cellulitis of the right arm. Reactive right axillary lymphadenopathy. No drainable fluid collection or soft tissue gas. Electronically signed by Rashel Sheffield 07/18/2018 12:48 PM
--- NOTE | 2018-07-18 16:41 | PROGRESS NOTE ---
DATE: 07/18/2018 Mr. Echevarria reports some improvement in the right arm discomfort and mobility. He has not had any more episodes of being "in a trance." He does not notice any neurologic deficit. Lab shows WBC count down to 15,760. Magnesium is borderline low at 1.4. Calcium continues borderline low at 8.4. Liver enzymes are little bit elevated today. Mr. Echevarria reports last brain MRI scan was several years ago. He does not remember specifics about where, when, why scan was done and he does not recall being told there was any abnormality. He had CT scan of the head without contrast on presentation here, and that was unremarkable. The EEG yesterday showed no definite epileptiform discharge and no evidence of focal encephalopathy. I do not have any urgent suggestion. I think it would be reasonable to plan brain MRI with contrast when practical, not urgent. This is recommended because of his reported history of metastatic colon cancer and recent question of focal seizure. With current stable course, I would not add antiseizure medicine. I told him the episode a year ago seems likely related to substances, and he agreed with that. Episode this time is not yet definitely attributed to seizure. Thanks for asking Neurology to see Mr. Echevarria. cc: MD FIDELIA Weston III
--- NOTE | 2018-07-18 17:41 | PROGRESS NOTE ---
DATE: 07/18/2018 SUBJECTIVE: Patient continues without chest discomfort or dyspnea. He continues to have some right arm discomfort in the setting of his cellulitis and probable septic thrombophlebitis. OBJECTIVE: Vital Signs: Blood pressure 117/69, heart rate 94 and irregular with ECG monitor showing atrial fibrillation, oxygen saturation 97%. Neck: There is no significant jugular venous distention. Chest: Clear to auscultation bilaterally with diminished breath sounds diffusely. Cardiac exam: Irregular rate and rhythm without appreciable murmur or gallop. Extremities: Examination of right upper extremity demonstrates an area of erythema in the right antecubital fossa area spreading both distally and proximally. There is what appears to be a septic thrombophlebitis with some pus draining. Extremities are without edema. LABORATORY DATA: Includes a white blood cell count 15.76, hematocrit 32.5, hemoglobin 10.4, platelet count 117,000. Sodium 134, potassium 4.0, chloride 96, carbon dioxide 29, BUN 16, creatinine 0.6, glucose 92, albumin 2.5. Free T4 1.31, total T3 1.4, both normal. IMPRESSION: 1. Chronic atrial fibrillation. Rate control with metoprolol currently. Xarelto dose subtherapeutic given his normal renal function and appropriate dose should be 20 mg daily. However, he has what appears to be septic thrombophlebitis and interruption may be needed to address this. 2. Right upper extremity cellulitis with what appears to be associated septic thrombophlebitis. 3. Metastatic colon cancer. 4. Bilateral lower extremity edema. Left ventricular systolic function is normal. There is right ventricular enlargement reported and right atrial enlargement. This may indicate some degree of right-sided heart failure. RECOMMENDATIONS: 1. Continue metoprolol at current dose. 2. Hold Xarelto for now pending General Surgery consultation. Ultimately, would resume Xarelto at 20 mg daily. cc: Jose Hurd MD
--- NOTE | 2018-07-18 18:26 | HEMO/ONC CONSULTATION ---
DATE: 07/17/2018 ADMITTING PHYSICIAN: Dr. Florence. REQUESTING PHYSICIAN: Dr. Florence. We appreciate this consult. CHIEF COMPLAINT: Colon cancer. HISTORY OF PRESENT ILLNESS: Mr. Echevarria is a 63-year-old male, well known to Dr. Fountain, with a history of metastatic colon cancer status post chemotherapy and diverting loop ostomy. The patient is awaiting reversal of ostomy at this time. He presented to the clinic for followup and was noted to be unsteady on his feet with slight altered mental status. Additionally, the patient experienced focal seizures with reported vision loss while in clinic. 911 was called and the patient presented to [facility] Emergency Department. Upon presentation, the patient's main concern was right upper extremity pain, redness and swelling. X- ray was obtained to rule out osteomyelitis, which was ruled out. The patient was begun on vancomycin. He was also noted to be in atrial fibrillation on presentation with a heart rate in the 160s. Patient was given IV Cardizem and placed on a Cardizem drip and transferred to [facility]. We are consulted as the patient is well known to us. PAST MEDICAL HISTORY: 1. Hepatitis C. 2. Chronic atrial fibrillation. 3. Bipolar disorder. 4. Peptic ulcer disease. 5. Left eye cataract. 6. Right sciatica. 7. Bilateral peripheral neuropathy. 8. Metastatic colon cancer status post transverse diverting loop colostomy. 9. Gastroesophageal reflux disease. 10. Anemia of chronic disease. 11. Nephrolithiasis. 12. Tobacco dependence. PAST SURGICAL HISTORY: 1. Gastric surgery for bleeding ulcer. 2. Tonsillectomy. 3. Cystoscopy, with kidney stone removal. 4. Transverse diverting loop colostomy. SOCIAL HISTORY: The patient smokes 1 pack cigarettes daily x 40 years. He drinks alcohol socially. He states that he occasionally smokes marijuana. He has a history of cocaine abuse with no recent illicit drugs. FAMILY HISTORY: Negative for any hematologic or oncologic problem. MEDICATIONS ON ADMISSION: 1. Dexamethasone. 2. Digoxin. 3. Marinol. 4. [place]. 5. Zofran. 6. Zoloft. 7. Percocet. ALLERGIES: The patient has no known drug allergies. REVIEW OF SYSTEMS: A 14-point review of systems was obtained and is negative except for as mentioned in the HPI. PHYSICAL EXAMINATION: General: Mr. Echevarria is a 63-year-old male lying supine in bed. Somewhat confused, but in no immediate distress. Vital Signs: Temp. 98.9, blood pressure 133/72, heart rate 95, respirations 17. O2 saturation 100% on room air. HEENT: Normocephalic, atraumatic. Mucous membranes are somewhat pale and dry. Sclerae is anicteric. Extraocular movements intact. Neck: Supple. Lungs: Clear to auscultation bilaterally. Chest expansion equal bilaterally. Cardiovascular: S1, S2 is heard, without murmur, rub or gallop. Abdomen: Slightly distended. Soft. Mildly tender to palpation. No rebound or guarding noted. Bowel sounds are positive. Extremities: Without clubbing or cyanosis. The patient does have right upper extremity 2+ edema. Dermatologic: No rashes, bruises or lesions. Neurologic: The patient is awake. He is somewhat confused. Oriented to name only. He has no overt focal deficits. LABORATORY DATA: Hemoglobin 10.3, hematocrit 32.3, white blood cell count 23.50 , platelets 131,000. Sodium 139, potassium 4.2, chloride 105, CO2 is 27, BUN 22, creatinine 0.5 and glucose is 130, calcium 8.4, magnesium 1.5. Bilirubin 0.96, alkaline phosphatase 157, AST 31, ALT 42. Influenza is negative. Blood cultures are pending. IMAGING STUDIES: Chest x-ray reveals a stable chest. Elbow x-ray reveals no osteomyelitis. ASSESSMENT AND PLAN: 1. Metastatic obstructive colon cancer status post diverting loop ostomy. The patient is status post chemotherapy. He is awaiting surgical reversal of ostomy. 2. Atrial fibrillation with rapid ventricular response, rate is currently controlled. 3. Right upper extremity cellulitis with swelling. Ultrasound of the right upper extremity is pending to rule out DVT. Additionally, the patient is currently on vancomycin and Zosyn. 4. Questionable focal seizures. The patient has had no further episodes. Ativan has currently been ordered prn. Neurology consult is pending. Ct head is negative for acute findings. 5. Bilateral lower extremity edema, on Lasix. 6. Hepatitis C, known. 7. We will follow along with you and make further recommendations pending outcomes. The above reflects the history exam, assessment and plan of Dr. Fountain. Dictated by BALDO Sharp for Kris Fountain MD cc: BALDO Sharp MD [facility]
--- NOTE | 2018-07-18 19:34 | CONSULTATION ---
DATE OF CONSULTATION: 07/18/2018 HISTORY OF PRESENT ILLNESS: Goran Echevarria is a patient of Dr. Nicanor Sinha. He has had colon surgery per Dr. Sinha for cancer. He is receiving chemotherapy. He also has problems with kidney stones and atrial flutter or fibrillation. He has had an IV placed at his antecubital fossa, right upper extremity. It appears that he has increasing cellulitis, swelling, and even some purulence at the IV site. The IV site has been removed. He does have a port which they are using at this time. We were asked to evaluate him for septic phlebitis. He is receiving IV antibiotics. PLAN: He may need incision and drainage of this area to more quickly heal this infection, right arm. I will discuss it with Dr. Sinha tomorrow. cc: Lizette Whitmore MD
[2018-07-19] MEDS: LOPRESSOR PO SCH ×4 (02:31→20:11)
[2018-07-19] MEDS: PERCOCET-10 PO PRN ×3 (02:31→18:37)
[2018-07-19] MEDS: ZOSYN 3.375 GM in NS 50 ML IV SCH ×3 (04:09→20:10)
--- NOTE | 2018-07-19 07:25 | EKG Report ---
Test Performed on : 07/19/2018 06:37:05 AM Test Reason : afib Blood Pressure : / mmHG Vent. Rate : 110 BPM Atrial Rate : 093 BPM P-R Int : 000 ms QRS Dur : 074 ms QT Int : 324 ms P-R-T Axes : 000 092 077 degrees QTc Int : 438 ms Undetermined rhythm Rightward axis Septal infarct , age undetermined Abnormal ECG When compared with ECG of 18-JUL-2018 06:47, Current undetermined rhythm precludes rhythm comparison, needs review Unconfirmed Result
[2018-07-19] MEDS: VANCOMYCIN 1,250 MG in NS 250 ML IV SCH ×2 (09:29→20:43)
[2018-07-19] MEDS ORDERED: DIPRIVAN 1% ONE (10:46)
[2018-07-19] MEDS ORDERED: XYLOCAINE-MPF 2% ONE (10:47)
[2018-07-19] MEDS ORDERED: QUELICIN (DOSE) ONE (10:47)
--- NOTE | 2018-07-19 12:12 | PROGRESS NOTE ---
DATE: 07/19/2018 SUBJECTIVE: The patient is resting in bed. Not in any obvious distress. OBJECTIVE: Vital signs: Temperature 98 degrees, pulse 90, respiratory rate 20 , blood pressure 120/72, oxygen is 95%. HEENT: Atraumatic, normocephalic. Cardiovascular: S1 , S2. Respiratory: Has evidence of good air entry bilaterally. Abdomen: Soft, nontender. Ostomy present. Extremities: The patient has a large area of erythema involving the left forearm and the left arm. There is also an area around the left elbow that has a purulent discharge. In the lower extremities, the patient has trace edema in both lower extremities. Central nervous system: No obvious focal deficits noted. LABORATORY DATA: None. ASSESSMENT AND PLAN: 1. Atrial fibrillation with rapid ventricular rate. The patient now on oral metoprolol for rate control and also on Xarelto for anticoagulation. He is being followed by the Cardiology team. 2. Cellulitis/abscess right upper extremity. We will obtain a swab from the wound site for Gram stain and culture. Continue current antibiotic regimen. 3. History of colon cancer status post transverse diverting loop colostomy. Oncology following. 4. Questionable history of seizures. Maintain patient on seizure precaution. The patient has been evaluated by the Neurology team. His EEG shows absence of epileptiform discharges on a single EEG. 5. History of hepatitis C. The patient will need to follow up with the GI team post discharge. 6. Peptic ulcer disease. Continue proton pump inhibitor. 7. Bilateral lower extremity edema. Continue diuretics. 8. History of nephrolithiasis. Aware. Follow up with Urology post discharge from the hospital. 9. History of bipolar disorder. The patient is currently not taking any medications for this condition. Will need to follow up with Psychiatry after discharge from the hospital. 10. Deep vein thrombosis prophylaxis. Sequential compression devices. 11. Gastrointestinal prophylaxis. Proton pump inhibitor. cc: Og Florence MD MTDD
[2018-07-19] MEDS ORDERED: SODIUM CHLORIDE 0.9% 10 ML ONE (12:26)
[2018-07-19] MEDS ORDERED: NEO-SYNEPHRINE ONE (12:26)
[2018-07-19] MEDS ORDERED: FENTANYL ONE (12:37)
[2018-07-19] MEDS ORDERED: ZOFRAN ONE (12:38)
[2018-07-19] MEDS: DILAUDID ONE ×4 (13:30→13:47)
[2018-07-19] MEDS ORDERED: PERCOCET-10 ONE (13:50)
[2018-07-19] MEDS: KLOR-CON PO SCH (14:36)
[2018-07-19] MEDS: PROTONIX IV SCH (14:36)
[2018-07-19] MEDS: SODIUM CHLORIDE 0.9% INJ SCH (14:36)
[2018-07-19] MEDS: LASIX PO SCH (14:36)
--- NOTE | 2018-07-19 18:46 | PROGRESS NOTE ---
DATE: 07/19/2018 SUBJECTIVE: The patient had excision of septic phlebitis from right antecubital region today by General Surgery. He continues without chest discomfort or shortness of breath. OBJECTIVE: Blood pressure 100/75 heart rate 93. ECG monitor showing atrial fibrillation with controlled rate. Oxygen saturation 99%. There is no significant jugular venous distention. Chest is clear to auscultation bilaterally. Cardiac exam reveals an irregular rate and rhythm without appreciable murmur or gallop. There is no evidence of peripheral edema. LABORATORY DATA: Includes a white blood cell count of 15.76, hematocrit 32.5, hemoglobin 10.4, platelet count 117,000. Sodium 134, potassium 4.0, chloride 96, carbon dioxide 28, BUN 16, creatinine 0.6, glucose 92, albumin 2.5. IMPRESSION: 1. Chronic atrial fibrillation. Rate controlled currently with metoprolol. 2. Right upper extremity cellulitis with septic phlebitis. The patient is status post excision of infected vein segment. 3. Metastatic colon cancer. RECOMMENDATIONS: 1. Continue metoprolol at current dose. 2. Initiate Lovenox 1 mg/kg subcutaneously q.12. Ultimately patient to transition back to Xarelto for long-term anticoagulation and thromboembolic risk protection with his atrial fibrillation. cc: Jose Hurd MD
--- NOTE | 2018-07-19 19:25 | OPERATIVE NOTE ---
PROCEDURE DATE: 07/19/2018 PREOPERATIVE DIAGNOSIS: Right upper extremity soft tissue infection status post peripheral intravenous. POSTOPERATIVE DIAGNOSIS: Right upper extremity soft tissue infection status post peripheral intravenous. PRINCIPAL PROCEDURE: Incision and drainage with debridement of skin, subcutaneous tissue and superficial fascia of infected soft tissue right upper extremity. SURGEON: Lizette Whitmore MD. ANESTHESIA: General. ESTIMATED BLOOD LOSS: 50 mL. DRAINS: None. INDICATIONS: Mr. Goran Echevarria is a 63-year-old white male who had a peripheral IV in the antecubital fossa right upper extremity. He has developed a soft tissue infection from this peripheral IV with swelling and redness involving the right upper extremity. You could express pus at the puncture site of the IV which has since been removed. It was felt that he needed incision and drainage and debridement of the soft tissue of this area right upper extremity. DESCRIPTION OF PROCEDURE: The patient was brought to the operating room, placed supine, received general anesthesia, was ventilated. His right upper extremity was prepped and draped in a sterile field. I used a hemostat to identify the abscess cavity within the soft tissue beginning at the previous IV site. We made an incision with a 15 blade scalpel. I took cultures. Purulence was drained. We made sure that we widely opened this area of the right upper extremity which included the antecubital fossa, proximal forearm and arm. We used forceps and scissors to debride necrotic skin and subcutaneous tissue and even some of the superficial fascia of the right upper extremity. This infection did not seem to track any deeper than the superficial fascia. We thoroughly irrigated the wound. We used cautery to control bleeding and then we packed the wound open with iodoform gauze followed by dry dressing and Kerlix wrap. He tolerated the procedure well with plans for him to go the recovery room and then be readmitted to the floor. cc: Lizette Whitmore MD
[2018-07-19] MEDS ORDERED: NS 500 ML IV ONE ×2 (19:39→22:27)
[2018-07-19] MEDS ORDERED: LOVENOX 1 MG/KG SUBQ SCH (20:15)
[2018-07-20] MEDS: LOPRESSOR PO SCH ×5 (01:15→23:24)
[2018-07-20] MEDS: ZOSYN 3.375 GM in NS 50 ML IV SCH ×4 (02:45→21:23)
[2018-07-20 05:26] LABS: BASO# 0.03 X1000 (0.0-0.2); BASO% 0.5 % (0.0-0.8); EOS# 0.22 X1000 (0.0-0.7); EOS% 3.6 % (0.0-10.0); HEMATOCRIT 31.5 % (42.0-52.0); HEMOGLOBIN 9.8 g/dL (14.0-18.0); LYMPH# 1.45 X1000 (1.2-3.4); LYMPH% 23.8 % (20.5-51.1); MCH 31.8 PG (27-31); MCHC 31.1 g/dL (33-37); MCV 102.3 FL (81-99); MONO# 1.08 X1000 (0.11-0.59); MONO% 17.8 % (1.7-9.3); MPV 10.4 FL (7.4-10.4); NEUT% 54.3 % (42.2-75.2); PLT 106 X1000 (130-400); RBC 3.08 XMIL (4.7-6.1); RDW 15.9 % (11.5-14.5); WBC 6.08 X1000 (4.8-10.8)
[2018-07-20 05:45] LABS: AGAP 4; ALB/GLOB RATIO 0.9; ALBUMIN 2.1 g/dL (3.5-5.0); ALKALINE PHOSPHATASE 143 U/L (32-122); BUN 14 mg/dL (8-22); CALCIUM 8.1 mg/dL (8.8-10.2); CHLORIDE 100 mmol/L (98-107); COSMO 273; CREATININE 0.7 mg/dL (0.7-1.2); ESTIMATED GFR > 60; GLUCOSE 141 mg/dL (70-104); GOT 48 U/L (10-34); GPT 39 U/L (10-44); POTASSIUM 4.6 mmol/L (3.5-5.1); SODIUM 135 mmol/L (136-145); TCO2 31 mmol/L (25-35); TOTAL BILIRUBIN 0.53 mg/dL (0.20-1.00); TOTAL PROTEIN 4.5 g/dL (6.3-8.3)
[2018-07-20] MEDS: PERCOCET-10 PO PRN ×4 (06:05→22:05)
[2018-07-20] MEDS: KLOR-CON PO SCH (09:25)
[2018-07-20] MEDS: LASIX PO SCH (09:25)
[2018-07-20] MEDS: LOVENOX SUBQ SCH ×2 (09:26→21:23)
[2018-07-20] MEDS: PROTONIX IV SCH (09:31)
[2018-07-20] MEDS: SODIUM CHLORIDE 0.9% INJ SCH (09:32)
[2018-07-20] MEDS: VANCOMYCIN 1,250 MG in NS 250 ML IV SCH ×2 (10:27→21:23)
--- NOTE | 2018-07-20 11:51 | GENERAL SURGERY PROGRESS NOTE ---
DATE: 07/20/2018 SUBJECTIVE: Patient tolerated his incision and drainage of his arm yesterday in the right upper extremity after he had an IV. He is doing okay. He has been afebrile and hemodynamically stable. Nursing staff reports no major issues. OBJECTIVE/PLAN: Reviewed his wound. I took out his packing. Wound itself appears okay, no active drainage. I had the nurse replace it with a Vashe wet-to-dry. We will continue with this twice a day. He still has some erythema, especially at his arm and difficulty moving it, so we will need to encourage movement of the arm and monitoring the erythema. Otherwise, continue current treatment. cc: Mike Nieves MD
--- NOTE | 2018-07-20 12:36 | PROGRESS NOTE ---
DATE: 07/20/2018 SUBJECTIVE: This morning, Mr. Echevarria refers to be doing a whole lot better. Denies any more feeling altered or being in a trance. OBJECTIVE: Vital signs: Blood pressure is 98/64 with a MAP of 71, pulse is 95 , respiration is 18, temperature 98.9 degrees. The patient is saturating 96% on room air. General: Mr. Echevarria is a 63-year-old gentleman. He is in bed. He is not in any cardiopulmonary distress. HEENT: Mucosa is pink and moist. Anicteric. Acyanotic. Neck: Supple. Respiratory: There is good air entry bilaterally. No crepitations. No rhonchi. Cardiovascular: Irregularly irregular but rate controlled. No murmurs, no rubs, no gallops. Abdomen: Soft. There is an ostomy on the right side of the abdominal wall. Bowel sounds present. Extremities: No pedal edema. Central nervous system: Patient is awake, alert, oriented. There is no focal neurological deficit. LABORATORY DATA: This morning, WBC is down to 6.08, hemoglobin is 9.8, platelet count of 106,000. Chemistry is also reviewed. Sodium is 135, potassium is 4.6, chloride is 100, bicarb is 21. LFTs on the downward trend. MICROBIOLOGY: So far, blood cultures have been negative. The arm Gram stain shows occasional gram-positive cocci is occasional. IMAGIN. The right upper extremity CT scan did show extensive cellulitis of the right arm, reactive right arm axillary lymphadenopathy, drainable collection of soft tissue gas. 2. An echocardiogram was normal. ASSESSMENT: 1. Sepsis on admission secondary to skin and soft tissue infection. 2. Right upper extremity abscess with surrounding cellulitis after IV access placed. The patient is currently status post I D. Today is day 1 postop. His cultures from the surgical specimen showing gram-positive cocci. The patient is currently on vancomycin and Zosyn, would continue, awaiting on the ID and sensitivity of these gram-positive cocci. 3. History of colon adenocarcinoma with metastasis to the liver. Patient is status post diverting loop colostomy. 4. History of atrial fibrillation with rapid ventricular response on presentation. Currently rate controlled. PLAN: In general, I think Mr. Echevarria seems to be doing a lot better. He got admitted mainly because of altered mental status and suspicion of seizures. In the context of Mr. Gibbons being a cancer patient, the concern is if there is any metastasis to the brain. We are going to be doing an MRI of the brain since the CT scan initially was unremarkable. This will be done on Sunday. We will continue with the current antibiotic coverage and await the ID and sensitivity on the surgical specimen. cc: Micheal Ornelas MD MTDD
[2018-07-21] MEDS: PERCOCET-10 PO PRN ×3 (02:26→17:27)
[2018-07-21] MEDS: ZOSYN 3.375 GM in NS 50 ML IV SCH (02:36)
[2018-07-21 05:49] LABS: BASO# 0.05 X1000 (0.0-0.2); BASO% 0.9 % (0.0-0.8); EOS% 3.6 % (0.0-10.0); HEMATOCRIT 34.3 % (42.0-52.0); HEMOGLOBIN 10.8 g/dL (14.0-18.0); LYMPH# 1.68 X1000 (1.2-3.4); LYMPH% 30.1 % (20.5-51.1); MCH 32.1 PG (27-31); MCHC 31.5 g/dL (33-37); MCV 102.1 FL (81-99); MONO# 1.15 X1000 (0.11-0.59); MONO% 20.6 % (1.7-9.3); MPV 10.5 FL (7.4-10.4); NEUT% 44.8 % (42.2-75.2); PLT 123 X1000 (130-400); RBC 3.36 XMIL (4.7-6.1); RDW 15.9 % (11.5-14.5); WBC 5.58 X1000 (4.8-10.8)
[2018-07-21] MEDS: LOPRESSOR PO SCH ×3 (05:57→20:03)
[2018-07-21 06:16] LABS: AGAP 7; ALB/GLOB RATIO 0.9; ALBUMIN 2.7 g/dL (3.5-5.0); ALKALINE PHOSPHATASE 191 U/L (32-122); BUN 14 mg/dL (8-22); CALCIUM 8.3 mg/dL (8.8-10.2); CHLORIDE 99 mmol/L (98-107); COSMO 270; CREATININE 0.8 mg/dL (0.7-1.2); ESTIMATED GFR > 60; GLUCOSE 93 mg/dL (70-104); GOT 62 U/L (10-34); GPT 44 U/L (10-44); POTASSIUM 4.4 mmol/L (3.5-5.1); SODIUM 135 mmol/L (136-145); TCO2 29 mmol/L (25-35); TOTAL BILIRUBIN 0.55 mg/dL (0.20-1.00); TOTAL PROTEIN 5.7 g/dL (6.3-8.3)
--- NOTE | 2018-07-21 06:21 | GENERAL SURGERY PROGRESS NOTE ---
DATE: 07/21/2018 SUBJECTIVE: Patient doing okay. He tolerated his dressing changes with the nursing staff. OBJECTIVE: Vital Signs: Patient is currently afebrile. His vital signs are stable. General: No acute distress. Cardiovascular: Regular rate and rhythm. Lungs: Grossly clear. Extremities: Intact. Erythema appears better overall. ASSESSMENT AND PLAN: A 63-year-old gentleman status post incision and drainage of arm abscess. Postoperative state at this time. Continue Vashe wet-to-dry dressing. Awaiting speciation of his bacteria, so far it is just gram-positive cocci. Otherwise, continue current treatments. cc: Mike Nieves MD
[2018-07-21 06:37] LABS: BANDS 8 % (0-1); EOS 6 % (1-10); LYMPHS 24 % (21-51); MONO 4 % (1-9); SEGS 58 % (42-75)
[2018-07-21] MEDS: XARELTO PO SCH (08:44)
[2018-07-21] MEDS: LASIX PO SCH (08:44)
[2018-07-21] MEDS: PROTONIX IV SCH (08:45)
[2018-07-21] MEDS: KLOR-CON PO SCH (08:45)
[2018-07-21] MEDS: SODIUM CHLORIDE 0.9% INJ SCH (08:45)
--- NOTE | 2018-07-21 14:09 | PROGRESS NOTE ---
DATE: 07/21/2018 SUBJECTIVE: This morning, Mr. Echevarria refers to be doing fairly okay. He did have multiple concerns, especially about the kidney stones, and he would want a urologist to see him while he is here. He said he was supposed to have some intervention on the kidneys done at [facility] a couple of weeks ago but then he took sick and then came over here. OBJECTIVE: Vital Signs: This morning, his vitals are blood pressure 94/60, pulse is 93, respirations are 18, temperature is 98.3 degrees. General Examination: Mr. Echevarria is a 63-year- old, gentleman. He is in bed. He is not in any cardiopulmonary distress. HEENT: Mucosa is pink and moist. Anicteric. Acyanotic. Neck: Supple. Respiratory System: There is good air entry bilaterally. There are no crepitations. No rhonchi. Cardiovascular: Irregularly irregular but rate controlled. No murmurs, no rubs, no gallops. GI: Abdomen is soft. There is an ostomy on the right side of the abdominal wall. Bowel sounds are present. Extremities: No pedal edema. CANDLE WICKER: The patient is awake, alert, and oriented. Laboratory Data: WBC is 5.58, hemoglobin is 10.8, platelet count of 123,000. There are 8% of bands on the peripheral smear today. Chemistry is also reviewed and it is unremarkable except for sodium of 135. ASSESSMENT: 1. Sepsis on presentation secondary to skin and soft tissue infection. 2. Right upper extremity abscess with surrounding cellulitis after intravenous access placement. The patient is currently status post incision and drainage. Today is day 2 postoperatively. The dressing seems to be slightly wet. Culture is now positive for methicillin-resistant Staphylococcus aureus. I have discontinued the Zosyn and we will continue with the vancomycin. 3. History of colon cancer with metastasis to liver. Patient is status post diverting loop colostomy. He follows up with both Dr. Sinha and Dr. Fountain. 4. History of chronic atrial fibrillation with rapid ventricular response on presentation, currently rate controlled. The patient is on metoprolol. We restarted his home diltiazem as well and the patient has been restarted on Xarelto. 5. Altered mental status on presentation, presumably due to sepsis. However, the patient has a history of metastatic colon cancer. We are doing an MRI tomorrow morning to rule out any possibility of a brain metastasis. 6. Left nephrolithiasis. According to Mr. Echevarria, he follows up with a urologist in [place] that he does not really remember but he is very concerned and he wants urology to evaluate him while he is in the hospital. Review of his CT scan of the abdomen and pelvis which was done on admission does show several stones in the left renal collecting system including the renal pelvis measuring at least 13 mm in dimension. I have started the patient on silodosin and consulted urology for tomorrow morning. cc: Micheal Ornelas MD MTDD
[2018-07-21] MEDS: RAPAFLO PO SCH (14:22)
[2018-07-21] MEDS: LANOXIN PO SCH (17:24)
[2018-07-21] MEDS ORDERED: VANCOMYCIN 1,250 MG in NS 250 ML IV SCH (18:00)
[2018-07-22] MEDS: LOPRESSOR PO SCH ×4 (01:55→20:25)
[2018-07-22] MEDS: XARELTO PO SCH (06:17)
[2018-07-22] MEDS: PERCOCET-10 PO PRN ×4 (06:18→20:25)
[2018-07-22 07:50] LABS: BASO# 0.07 X1000 (0.0-0.2); EOS# 0.26 X1000 (0.0-0.7); EOS% 3.6 % (0.0-10.0); HEMATOCRIT 37.9 % (42.0-52.0); IMM GRAN# 0.02 X1000 (0.0-0.04); IMM GRAN% 0.3 % (0.0-0.5); LYMPH# 2.11 X1000 (1.2-3.4); LYMPH% 29.6 % (20.5-51.1); MCH 31.9 PG (27-31); MCHC 31.7 g/dL (33-37); MCV 100.8 FL (81-99); MONO# 1.32 X1000 (0.11-0.59); MONO% 18.5 % (1.7-9.3); MPV 10.4 FL (7.4-10.4); NEUT# 3.35 X1000 (1.4-6.5); PLT 154 X1000 (130-400); RBC 3.76 XMIL (4.7-6.1); RDW 16.1 % (11.5-14.5); WBC 7.13 X1000 (4.8-10.8)
[2018-07-22 08:04] LABS: AGAP 8; BUN 11 mg/dL (8-22); CALCIUM 8.8 mg/dL (8.8-10.2); CHLORIDE 95 mmol/L (98-107); COSMO 268; CREATININE 0.7 mg/dL (0.7-1.2); ESTIMATED GFR > 60; GLUCOSE 98 mg/dL (70-104); SODIUM 134 mmol/L (136-145); TCO2 31 mmol/L (25-35)
[2018-07-22 08:20] LABS: POTASSIUM 5.2 mmol/L (3.5-5.1)
[2018-07-22 08:23] LABS: BANDS 9 % (0-1); LYMPHS 17 % (21-51); MONO 22 % (1-9); SEGS 46 % (42-75)
[2018-07-22 08:24] LABS: STOMATOCYTES 1+
--- NOTE | 2018-07-22 08:39 | PROGRESS NOTE ---
DATE: 07/22/2018 SUBJECTIVE: Mr. Echevarria is a 63-year-old white male who underwent incision and drainage of an MRSA infection right antecubital fossa, status post peripheral IV in this area. The wound was left open and has been cared for over the weekend. His white blood cell count is now normal. The swelling involving his right upper extremity has improved. There is still some surrounding redness of the wound, but overall, I think the wound is clean without any undrained purulence. Evidently, he is being evaluated for hematuria. He has completed his chemotherapy. Dr. Nicanor Sinha has done his colon resection and given him an end colostomy. ASSESSMENT AND PLAN: I think as his issues resolve, he can be discharged home as far as I am concerned, right antecubital fossa wound. I can discuss wound care with him. He already takes care of his end-colostomy, and I do not feel that caring for this wound would be difficult for him. He will have to be discharged on p.o. antibiotics covering MRSA and follow up in our outpatient offices for wound care. This wound will heal by secondary intention. cc: Lizette Whitmore MD
[2018-07-22] MEDS ORDERED: ZOLOFT PO SCH (09:00)
[2018-07-22] MEDS: SODIUM CHLORIDE 0.9% INJ SCH (09:34)
[2018-07-22] MEDS: PROTONIX IV SCH (09:34)
[2018-07-22] MEDS: KLOR-CON PO SCH (09:35)
[2018-07-22] MEDS: LANOXIN PO SCH (09:35)
[2018-07-22] MEDS: LASIX PO SCH (09:35)
[2018-07-22] MEDS: RAPAFLO PO SCH (09:37)
[2018-07-22] MEDS ORDERED: VELTASSA PO ONE (11:52)
--- NOTE | 2018-07-22 12:21 | PROGRESS NOTE ---
DATE: 07/22/2018 SUBJECTIVE: This morning Mr. Echevarria refers to be doing fairly okay. No complaints. He is very lucid. OBJECTIVE: Vital signs: Blood pressure is 114/73, pulse is 72, respiration is 16, temperature is 98 degrees. Patient was saturating about 94% to 98% on room air. General: Mr. Echevarria is a 63- year-old gentleman. He is in bed. He was not in any cardiopulmonary distress. HEENT: Mucosa is pink and moist. Anicteric. Acyanotic. Neck: Supple. Chest: Clear to auscultation. No crepitations. No rhonchi. Cardiovascular: Irregularly irregular, but rate controlled. No murmurs, no rubs, no gallops. Gastrointestinal: Abdomen was soft. There is an ostomy on the right side of the abdominal wall. The bag had fecal material, and the site looks clean. Bowel sounds were present. Extremities: No pedal edema. Central nervous system: Patient is awake, alert, and oriented. Musculoskeletal: The patient still has a Band-Aid sterile dressing over the surgical wound on the right. LABORATORY DATA: WBC 7.13, hemoglobin is 12.0, platelet count of 154,000. There is 9% of bands on the peripheral smear. Chemistry is also reviewed. Potassium is 5.2. ASSESSMENT: 1. Sepsis on presentation secondary to skin and soft tissue infection, improved. 2. Right upper extremity abscess with surrounding cellulitis. The patient is status post incision and drainage. Culture positive for MRSA. The patient is currently on IV vancomycin. We will switch this to p.o. Zosyn. 3. History of colon cancer with liver metastasis. The patient is status post diverting loop colostomy. He follows up with Dr. Sinha and Dr. Fountain. 4. History of chronic atrial fibrillation with rapid ventricular response (RVR) on presentation. Currently rate controlled. Patient is on metoprolol and diltiazem. 5. Altered mental status on presentation, likely due to infectious encephalopathy, improved. MRI is, however, ordered to rule out any brain metastasis. 6. Left nephrolithiasis. Patient is pending Urology consult. He said he is also having a little more hematuria this morning than days before. 7. Hyperkalemia. The patient is on potassium supplement, so I have discontinued this, and we will give him a one-time dose of Veltassa and repeat his electrolytes for tomorrow morning. In general, I think Mr. Echevarria is clinically stable. We have changed his IV antibiotics to oral. We are going to address his elevated potassium. He is pending Urology evaluation today. I think if everything is fine, hopefully by tomorrow, pending the recommendations from the other subspecialties, I think Mr. Echevarria is ready for discharge in the next 24 to 48 hours. cc: Michela Ornelas MD
[2018-07-22] MEDS: ZYVOX PO SCH (20:25)
[2018-07-23] MEDS: PERCOCET-10 PO PRN ×4 (00:01→15:10)
[2018-07-23] MEDS: LOPRESSOR PO SCH ×3 (02:07→14:29)
[2018-07-23] MEDS: XARELTO PO SCH (06:38)
[2018-07-23] MEDS ORDERED: PRILOSEC PO SCH (07:00)
--- NOTE | 2018-07-23 07:25 | CONSULTATION ---
DATE OF CONSULTATION: 07/22/2018 CONSULTING PHYSICIAN: Dr. Ornelas. REASON FOR CONSULTATION: Gross hematuria, left urolithiasis. HISTORY OF PRESENT ILLNESS: A 63-year-old male with history of recurrent urolithiasis. He was actually seen by me in 2013 secondary to a ureteral stone for which he has undergone cystoscopy with stone basket extraction. He was admitted on 07/16/2018 secondary to the right upper extremity cellulitis. He reports having been diagnosed with left renal stones and being scheduled to undergo ureteroscopy by Dr. Barillas in [facility]. He reports that he presented to the [facility], checked in and had difficulties with the nursing staff getting IV started. He was ultimately canceled for his procedure secondary to atrial fibrillation. He reports that after he left [facility], the IV site in right upper extremity became indurated, painful, swollen. He eventually presented to the ER and now admitted for cellulitis treatment. He had a CT abdomen and pelvis on 07/17/2018 done revealing left renal stones with the largest one being 13 mm right at the area of the left ureteropelvic junction. There was also report of a small 2 mm stone in the lumen of the bladder. The patient currently states his upper extremity is doing better. He states that he has mild left flank pain. He does continue to have intermittent gross hematuria that is fairly painless. PAST MEDICAL HISTORY: Urolithiasis, hepatitis C, atrial fibrillation, bipolar disorder, neuropathy, metastatic colon cancer, GERD, peptic ulcer disease. PAST SURGICAL HISTORY: Exploratory laparotomy for bleeding ulcer, diverting loop colostomy, biopsy of the liver, tonsillectomy, and cystoscopy with stone basket extraction. SOCIAL HISTORY: He smokes and consumes alcohol as well as used cocaine and marijuana. FAMILY HISTORY: Negative for malignancies. Positive for diabetes mellitus. ALLERGIES: No known drug allergies. HOME MEDICATIONS: 1. Percocet. 2. [place]. 3. Zofran. 4. Zoloft. 5. Marinol. 6. Digoxin. 7. Dexamethasone. REVIEW OF SYSTEMS: Reviewed and 12 systems negative except as per the HPI. PHYSICAL EXAMINATION: Vital signs: Temperature is 97.9, pulse 102, blood pressure 98/62. General: No acute distress. Cachectic-appearing male. HEENT: Normocephalic, atraumatic. Cardiovascular: Regular rate and rhythm. Pulmonary: Bilateral breath sounds. Abdomen: Scaphoid. Nontender to palpation. Colostomy noted in the right abdominal quadrant. Genitourinary: Normal phallus. Meatus is patent. Testes descended bilaterally. Perineum is with structural integrity intact. Rectal: Digital rectal examination deferred at this time. Back: No CVA tenderness. Lymphatic: No groin lymphadenopathy. Dermatologic: No obvious skin rashes but he does have gauze wrap over his right antecubital fossa and biceps area. Neurologic: Alert and oriented x3. Psychiatric: Appropriate mood and affect. PERTINENT LABORATORY DATA: White cell count 7000, hematocrit 38. Creatinine 0.7. PERTINENT IMAGES: Per HPI. ASSESSMENT: A 63-year-old male with left ureterolithiasis with large left ureteropelvic junction stone and intermittent gross hematuria. He is doing better from his right upper extremity cellulitis standpoint. He reports that his atrial fibrillation is back under control. I have discussed with the patient that from a Urology standpoint, his hematocrit has been stable and while gross hematuria does bother him, he is not actively losing a significant amount of blood to warrant emergent intervention. We discussed that he would benefit from left extracorporeal shockwave lithotripsy versus left ureteroscopy with laser lithotripsy. Pros and cons of each were explained. He wants to proceed with left extracorporeal shock wave lithotripsy. PLAN: 1. No urologic emergent intervention needed at this time. 2. I have discussed with the patient that he will come and see me in clinic later this week after discharge in order to be set up for his outpatient surgery. Thank you for the consultation. Please call with questions. cc: Laci Shine MD
[2018-07-23 07:52] LABS: BASO# 0.11 X1000 (0.0-0.2); EOS# 0.18 X1000 (0.0-0.7); EOS% 3.2 % (0.0-10.0); HEMATOCRIT 32.8 % (42.0-52.0); HEMOGLOBIN 10.1 g/dL (14.0-18.0); IMM GRAN# 0.02 X1000 (0.0-0.04); IMM GRAN% 0.4 % (0.0-0.5); LYMPH# 2.16 X1000 (1.2-3.4); LYMPH% 38.8 % (20.5-51.1); MCHC 30.8 g/dL (33-37); MCV 100.6 FL (81-99); MONO# 0.94 X1000 (0.11-0.59); MONO% 16.9 % (1.7-9.3); MPV 10.1 FL (7.4-10.4); NEUT# 2.15 X1000 (1.4-6.5); NEUT% 38.7 % (42.2-75.2); PLT 129 X1000 (130-400); RBC 3.26 XMIL (4.7-6.1); RDW 15.9 % (11.5-14.5); WBC 5.56 X1000 (4.8-10.8)
[2018-07-23 08:07] LABS: AGAP 8; BUN 15 mg/dL (8-22); CALCIUM 8.3 mg/dL (8.8-10.2); CHLORIDE 97 mmol/L (98-107); COSMO 270; CREATININE 0.6 mg/dL (0.7-1.2); ESTIMATED GFR > 60; GLUCOSE 119 mg/dL (70-104); POTASSIUM 4.5 mmol/L (3.5-5.1); SODIUM 134 mmol/L (136-145); TCO2 29 mmol/L (25-35)
[2018-07-23 08:21] LABS: BANDS 6 % (0-1); EOS 2 % (1-10); LYMPHS 46 % (21-51); MONO 10 % (1-9); SEGS 34 % (42-75)
[2018-07-23 08:23] LABS: HYPOCHROM 1+
[2018-07-23] MEDS: RAPAFLO PO SCH (08:31)
[2018-07-23] MEDS: LASIX PO SCH (08:33)
[2018-07-23] MEDS: ZYVOX PO SCH (08:33)
[2018-07-23] MEDS: LANOXIN PO SCH (08:33)
[2018-07-23] MEDS ORDERED: ZOLOFT PO SCH (09:00)
--- NOTE | 2018-07-23 11:34 | PROGRESS NOTE ---
DATE: 07/23/2018 Mr. Echevarria's open wound of the right antecubital fossa is healing by secondary intention. Cellulitis is resolving. There was no evidence of ongoing soft tissue infection. He will need daily damp to dry dressings involving his right upper extremity. He deals with a colostomy and feels that he can handle dressing of his wound, with followup in my outpatient offices next week for a wound check. cc: Lizette Whitmore MD
[2018-07-23 13:20] VITALS: BP 93/64
--- NOTE | 2018-07-23 17:58 | Extremity Venous Study ---
PROCEDURE NAME: Venous U/S Right Arm - 07/17/2018 PROCEDURE: Right arm upper extremity venous duplex study. REFERRING PHYSICIAN: Og Florence MD. READING PHYSICIAN: Franky Camargo MD. PROGRESS MAN: Mariam Molina. INDICATION: Right arm swelling. There is an indwelling port FINDINGS: The right internal jugular vein was acutely thrombosed and noncompressible. There was no flow in it. The right subclavian vein, axillary vein, basilic and brachial veins and cephalic veins were compressible, patent and without thrombus. There is thrombus and non compressibility in the right median cubital vein. INTERPRETATION: Acute DVT of the right internal jugular vein and acute SVT of the right median cubital vein. cc: MD Karolina Wilson CRNP
--- NOTE | 2018-07-23 19:01 | DISCHARGE SUMMARY ---
ADMISSION DATE: 07/16/2018 DISCHARGE DATE: 07/23/2018 DISPOSITION: Home. FOLLOW-UP: 1. Dr. Whitmore. 2. Dr. Fountain. 3. Dr. Shine. 4. Dr. Lyon. CONSULTATION DURING THIS ADMISSION: 1. Neurology was consulted, patient was seen by Dr. Stokes. 2. Hematology/Oncology was consulted. Patient was seen by Dr. Fountain. 3. Surgery was consulted. Patient was seen by Dr. Whitmore. 4. Urology was consulted, patient was seen by Dr. Shine. INVASIVE PROCEDURES DONE DURING THIS ADMISSION: Incision and drainage with debridement of skin, subcutaneous tissue and superficial fascia of infected soft tissue right upper extremity was done by Dr. Whitmore on 07/19/2018. MICROBIOLOGY DATA OF SIGNIFICANCE: The surgical specimen came back positive for MRSA. IMAGING STUDIES OF SIGNIFICANCE: 1. A chest x-ray was done initially which was negative. 2. A CT scan was done which showed no hemorrhage. Negative brain CT scan. 3. Echocardiogram showed an ejection fraction of 60% to 65%. No valvular abnormality. 4. A CT scan of the abdomen and pelvis showed the left nephrolithiasis, bibasilar atelectasis versus pneumonia. 5. Upper extremity CT scan showed extensive cellulitis of the right arm. There is also reactive right axillary lymphadenopathy. No drainable fluid of soft tissue gas was seen. ADMISSION DIAGNOSIS: 1. Atrial fibrillation with rapid ventricular response. 2. Right upper extremity cellulitis. 3. Metastatic colon cancer. 4. Questionable focal seizure. 5. Hepatitis C. DIAGNOSES AT THE TIME OF DISCHARGE: 1. Sepsis on presentation secondary to skin and soft tissue infection. 2. Right upper extremity abscess with surrounding cellulitis. Patient is status post I and D, culture positive for methicillin-resistant Staphylococcus aureus. 3. History of obstructive colon cancer status post diverting and colostomy. 4. Altered mental status on presentation due to infectious encephalopathy. Neurology was consulted. 5. Left nephrolithiasis. Patient was seen by Urology and there is a plan to follow him on outpatient basis. 6. Hyperkalemia improved. The patient was on potassium supplementation. This was discontinued. 7. Hepatocellular injury secondary to chronic hepatitis C. 8. History of chronic atrial fibrillation currently rate controlled on metoprolol or and also diltiazem. The patient is on Xarelto for stroke prophylaxis. DISCHARGE MEDICATIONS: 1. Marinol 5 mg b.i.d. 2. Zofran 4 mg p.o. q.6. 3. [place]. 4. Digoxin 125 mcg p.o. daily. 5. Dexamethasone 4 mg 3 times per day. 6. Zyvox 600 p.o. q.12h. 7. Furosemide 40 mg daily. 8. Omeprazole 20 mg daily. 9. Xarelto 20 mg daily. 10. Sertraline 50 mg daily. 11. Rapaflo 8 mg daily. 12. Metoprolol 25 p.o. q.12h. PRESENTING COMPLAINT: Right upper extremity pain. HISTORY OF PRESENTING COMPLAINT: Mr. Echevarria is a 63-year-old male with history of colon cancer status post diverting colostomy and patient is on chemotherapy with Dr. Fountain. He came to the emergency department because of right upper extremity pain. The patient refers that he did have IV access over there a couple days ago and since then he has been hurting. Upon presenting, the patient was evaluated. He was noted to have redness over the right upper extremity. There was suspicion of possible abscess. He was admitted and cultured and started on IV antibiotics. Surgery was consulted. HOSPITAL COURSE: The patient did pretty well during the hospital course. Surgery evaluated him and took him for I and D, which was successful. Surgical specimen has grown MRSA. Antibiotics have been tailored, accordingly. Mr. Echevarria also had a lot of complaints especially about a known kidney stone, so Urology was consulted, patient was seen by Dr. Shine, who recommended an outpatient follow-up. Throughout the hospital course, Mr. Echevarria continued to improve. His right upper extremity wound was evaluated on a daily basis by surgery as well as wound care. Today, he feels a lot better. He is completely asymptomatic wound. The right upper extremity wound is getting better. The patient is therefore being discharged in stable condition. He is going to continue to take Zyvox for 10 days to complete 14 days of abscess therapy, MRSA-induced right upper extremity abscess therapy. The patient presented with atrial fibrillation RVR. Medications were adjusted. Cardiology was also consulted. Patient was seen by Dr. Lyon who made multiple changes in his medications and his heart rate came under control this morning. DISCHARGE INSTRUCTIONS: All the discharge instructions were discussed with him and he voiced understanding. Time spent for discharge was 37 minutes VITAL SIGNS: Blood pressure was 100/60, pulse, respiration was 20, temperature was 97.3 degrees. DISPOSITION: The patient was stable for discharge. cc: Micheal Ornelas MD
--- NOTE | 2018-07-23 23:15 | Extremity Venous Study ---
PROCEDURE NAME: Venous U/S Bilateral Legs - 07/17/2018 REQUESTING PHYSICIAN: Og Florence MD READING PHYSICIAN: Franky Camargo MD WOOD CUT ENGRAVER: [*] INDICATION: Leg swelling. FINDINGS: The deep and superficial veins of the lower extremities were imaged throughout their course. They are compressible, patent, and without thrombus. INTERPRETATION: No deep vein thrombosis (DVT) or superficial vein thrombosis (SVT) of either lower extremity. cc: MD Og Wilson MD [facility]
== END 2018-07-23 15:56 | disposition home or self-care (01) | DRG 856 ==
LOC: ED 14:17 → SUATTDRO 18:34 → 3S 18:34 → 3N 07-21 16:31
PROVIDERS: ATTEND Internal Medicine
CPT/HCPCS: 70450; 71010; 71045; 73080; 73201; 74176; 80048; 80053; 80202; 81001; 82550; 83605; 83735; 84439; 84443; 84480; 84484; 85025; 85610; 85730; 87040; 87070; 87075; 87077; 87186; 87205; 87275; 87276; 87804; 93005; 93010; 93306; 93970; 93971; 94761; 95816; 96365; 96366; 96367; 96375; 99285; A9270; C8929; C9113; J0330; J0696; J1170; J1650; J2060; J2370; J2405; J2543; J3010; J3370; J7030; J7040; J7050; Q9957; Q9967; S0164

== ENCOUNTER 2018-09-16 04:10 | Inpatient (IN) ==
[2018-09-09 13:00] LABS: BASO# 0.02 X1000 (0.0-0.2); BASO% 0.2 % (0.0-0.8); EOS# 0.08 X1000 (0.0-0.7); HEMATOCRIT 41.3 % (42.0-52.0); HEMOGLOBIN 13.7 g/dL (14.0-18.0); IMM GRAN# 0.04 X1000 (0.0-0.04); IMM GRAN% 0.5 % (0.0-0.5); LYMPH# 1.78 X1000 (1.2-3.4); LYMPH% 21.4 % (20.5-51.1); MCH 31.6 PG (27-31); MCHC 33.2 g/dL (33-37); MCV 95.2 FL (81-99); MONO# 0.74 X1000 (0.11-0.59); MONO% 8.9 % (1.7-9.3); MPV 9.7 FL (7.4-10.4); NEUT# 5.66 X1000 (1.4-6.5); PLT 151 X1000 (130-400); RBC 4.34 XMIL (4.7-6.1); RDW 15.2 % (11.5-14.5); WBC 8.32 X1000 (4.8-10.8)
[2018-09-09 13:12] LABS: AGAP 6; BUN 33 mg/dL (8-22); CHLORIDE 103 mmol/L (98-107); COSMO 281; CREATININE 0.7 mg/dL (0.7-1.2); ESTIMATED GFR > 60; GLUCOSE 156 mg/dL (70-104); POTASSIUM 4.4 mmol/L (3.5-5.1); SODIUM 135 mmol/L (136-145); TCO2 26 mmol/L (25-35)
[2018-09-16] MEDS ORDERED: LR 1,000 ML ONE (11:06)
[2018-09-16] MEDS ORDERED: INVANZ 1 GM/NS 1 GM/50 ML IVPB ONE (11:23)
[2018-09-16] MEDS ORDERED: DIPRIVAN 1% ONE ×2 (12:35→13:43)
[2018-09-16] MEDS ORDERED: FENTANYL ONE ×2 (12:42→13:42)
[2018-09-16] MEDS ORDERED: QUELICIN (DOSE) ONE (12:43)
[2018-09-16] MEDS ORDERED: XYLOCAINE-MPF 2% ONE ×2 (12:43→13:42)
[2018-09-16] MEDS ORDERED: SODIUM CHLORIDE 0.9% 10 ML ONE ×2 (12:44→15:33)
[2018-09-16] MEDS ORDERED: NORCURON ONE (12:44)
[2018-09-16] MEDS ORDERED: OFIRMEV 1000 MG/ISOTONIC SOLN 1,000 MG/100 ML BOTTLE ONE (12:52)
[2018-09-16] MEDS ORDERED: ZOFRAN ONE (13:42)
[2018-09-16] MEDS ORDERED: ROBINUL ONE ×2 (13:42→15:28)
[2018-09-16] MEDS ORDERED: VERSED ONE (14:02)
[2018-09-16] MEDS ORDERED: DECADRON ONE (15:05)
[2018-09-16] MEDS ORDERED: EPHEDRINE ONE (15:33)
[2018-09-16] MEDS ORDERED: NEOSTIGMINE ONE (16:24)
[2018-09-16] MEDS ORDERED: NS 1,000 ML ONE (17:34)
[2018-09-16] MEDS: DILAUDID ONE ×9 (17:42→20:45)
--- NOTE | 2018-09-16 18:00 | OPERATIVE NOTE ---
PROCEDURE DATE: 09/16/2018 PREOPERATIVE DIAGNOSES: 1. Left-sided colon cancer. 2. Right-sided sessile polyp. POSTOPERATIVE DIAGNOSES: 1. Left-sided colon cancer. 2. Right-sided sessile polyp. PROCEDURE PERFORMED: 1. Total abdominal colectomy with ileorectal anastomosis. 2. Takedown of loop transverse colostomy. ANESTHESIA: General. SURGEON: Larissa Sinha MD. INTERIOR ASSEMBLIES INSTALLER: Fer Cunningham MD, who was present for the entirety of the case. He facilitated exposure and identification of anatomy. SPECIMENS: 1. Left colon. 2. Right colon. INDICATIONS: This is a gentleman who has had metastatic colon cancer with an obstructing lesion in the left colon. He had a diverting loop colostomy of the transverse colon proximal and underwent chemotherapy. He had a dramatic clinical response. He was able to gain weight and rehabbed well over the last several months. He wished to resect his colostomy. On colonoscopy prior to there was a stricture noted at his previous colon cancer site. He also had was billed as a 10 mm transverse colon polyp. This was found to be actually proximal to the colostomy, in the ascending colon. OPERATIVE NOTE: Risks, benefits, alternatives discussed and patient consented to the procedure. He was seen preoperatively and the surgical site was confirmed and marked. He was taken to the operating room and placed in the supine position. General anesthesia induced without complication. All bony prominences were padded. He was placed in the lithotomy position. His abdomen was prepped Betadine and draped in usual fashion after his colostomy was closed with a Prolene suture. After time-out, we made a midline incision, carried this down to the fascia. We entered the abdomen inferiorly as he had a previous upper midline incision and extended this incision cephalad and inferiorly, gaining wide exposure. We had to take down some omental adhesions from his previous ulcer surgery in the epigastrium. At this point, we made incision around the colostomy and dissected it and moved into the abdomen. Scored the mesentery. JENNIFER stapler was used proximally to resect proximal to the loop colostomy and we began mobilizing the transverse descending colon, entering the lesser sac, and mobilizing the left lateral attachments protecting the retroperitoneal structures. We identified an area distal to the scar that was quite involuted but identifiable and we divided this distally. We highly ligated the middle colic and provided a wide lymphadenectomy. We carried this down to the superior rectal and preserved this branch off the REFUGIO and resected distal with more than a 5 cm margin. We passed this off. Upon irrigating the abdomen and examining the right upper quadrant, we realized at this point that the tattoo of the sessile polyp that had high-grade dysplasia was actually in the ascending colon and not in the specimen portion. As such, we elected to perform a total abdominal colectomy. This was proximal to the hepatic flexure. We mobilized the right colon out of the retroperitoneum as well as the terminal ileum and took the mesentery with the LigaSure device and divided the terminal ileum distally with a blue JENNIFER stapler, passed the specimen off. Irrigated and confirmed hemostasis. We did protect both the retroperitoneal structures bilaterally. We then removed the corners of the staple line after noting adequate perfusion but pulsatile bleeding both on the rectal side and the ileal side. Using an 80 mm blue load staple we created a stapled [id number] functional end-to-end anastomosis, closing the common enterotomy with the second fire. We imbricated the corners, closed the mesenteric defect, and confirmed hemostasis. It was quite oozy from all the raw surfaces but we felt we had adequate hemostasis at each location. The omentum was placed over the small bowel. There was no kinking. There was no twisting. We closed the colostomy site with interrupted 0 Vicryl sutures. The fascia was closed with #1 looped PDS suture. We did change our gloves and instruments prior to fascial closure. Skin was closed surgical clips, gauze. Medipore dressing was applied. He tolerated it well and was transferred to recovery. I spoke with family. cc: Larissa Sinha MD
[2018-09-16] MEDS: OFIRMEV 1000 MG/ISOTONIC SOLN 1,000 MG/100 ML BOTTLE ONE ×2 (18:07→20:44)
[2018-09-16] MEDS ORDERED: MARINOL PO SCH (21:00)
[2018-09-16] MEDS: OFIRMEV 1000 MG/ISOTONIC SOLN 1,000 MG/100 ML BOTTLE IV SCH (21:07)
[2018-09-16] MEDS: PERIDEX MT SCH (21:07)
[2018-09-16] MEDS: SODIUM CHLORIDE 0.9% INJ SCH (21:07)
[2018-09-16] MEDS: PROTONIX IV SCH (21:07)
[2018-09-16] MEDS: NS 1,000 ML IV SCH (21:08)
[2018-09-16] MEDS: MARINOL PO SCH (21:08)
[2018-09-16] MEDS: DILAUDID IV PRN (21:13)
[2018-09-16 22:22] LABS: URINE SOURCE CATH
[2018-09-16 22:29] LABS: BILIRUBIN URINE NEGATIVE (NEGATIVE); BLOOD URINE LARGE (NEGATIVE); COLOR YELLOW; GLUCOSE URINE NEGATIVE (NEGATIVE); KETONE URINE NEGATIVE (NEGATIVE); LEUKOCYTES URINE NEGATIVE (NEGATIVE); NITRITE URINE NEGATIVE (NEGATIVE); PROTEIN URINE 50 mg/dL (NEGATIVE); TURBIDITY URINE HAZY (CLEAR); UROBILINOGEN URINE NORMAL (NORMAL)
[2018-09-16 22:47] LABS: UR EPITHELIAL CELLS <10 /HPF (<10); URINE BACTERIA NEGATIVE /HPF; URINE RBC <10 /HPF (<10); URINE WBC <10 /HPF (<10)
[2018-09-16 22:50] LABS: URINE CASTS NONE SEEN; URINE CRYSTALS NONE SEEN; URINE SMALL ROUND CELLS NONE SEEN; URINE YEAST NONE SEEN
[2018-09-17] MEDS: DILAUDID IV PRN ×6 (01:57→23:29)
[2018-09-17] MEDS: NS 1,000 ML IV SCH ×2 (01:58→15:14)
[2018-09-17] MEDS: OFIRMEV 1000 MG/ISOTONIC SOLN 1,000 MG/100 ML BOTTLE IV SCH ×3 (03:57→17:49)
[2018-09-17 06:39] LABS: INR 1.07; PROTIME 14.7 Seconds (11.0-16.0)
[2018-09-17 06:47] LABS: HEMATOCRIT 41.6 % (42.0-52.0); HEMOGLOBIN 13.5 g/dL (14.0-18.0); MCH 31.6 PG (27-31); MCHC 32.5 g/dL (33-37); MCV 97.4 FL (81-99); MPV 9.9 FL (7.4-10.4); RBC 4.27 XMIL (4.7-6.1); RDW 15.7 % (11.5-14.5); WBC 21.32 X1000 (4.8-10.8)
[2018-09-17 07:14] LABS: AGAP 10; BUN 22 mg/dL (8-22); CALCIUM 7.7 mg/dL (8.8-10.2); CHLORIDE 105 mmol/L (98-107); COSMO 280; CREATININE 0.8 mg/dL (0.7-1.2); ESTIMATED GFR > 60; GLUCOSE 119 mg/dL (70-104); POTASSIUM 4.7 mmol/L (3.5-5.1); SODIUM 138 mmol/L (136-145); TCO2 23 mmol/L (25-35)
[2018-09-17] MEDS: PERIDEX MT SCH ×2 (08:53→20:36)
[2018-09-17] MEDS: ZOLOFT PO SCH (08:53)
[2018-09-17] MEDS: MAG-OX PO SCH (08:53)
[2018-09-17] MEDS: LANOXIN PO SCH (08:55)
[2018-09-17] MEDS ORDERED: MARINOL PO SCH (09:00)
[2018-09-17] MEDS: MARINOL PO SCH ×2 (09:08→20:36)
--- NOTE | 2018-09-17 14:07 | GENERAL SURGERY PROGRESS NOTE ---
DATE: 09/17/2018 SUBJECTIVE: Doing okay, sore. No nausea. No fevers. No tachycardia. Blood pressure been okay. His abdomen is soft, appropriately tender. Incision is intact. Reviewed his labs. White count 21, hematocrit 41, creatinine 0.8. ASSESSMENT AND PLAN: A 63-year-old gentleman status post total abdominal colectomy with ileorectal anastomosis for left-sided colon cancer and a right-sided sessile polyp with high-grade dysplasia. Continue advance him as we are doing. I am going to hold his Lovenox. He was quite oozy during surgery yesterday and otherwise out of bed with scds. Will keep his Schumacher, remove it tomorrow. cc: Larissa Sinha MD MTDD
[2018-09-17] MEDS: PROTONIX IV SCH (20:36)
[2018-09-17] MEDS: SODIUM CHLORIDE 0.9% INJ SCH (20:36)
[2018-09-18] MEDS: NS 1,000 ML IV SCH ×3 (01:48→11:30)
[2018-09-18] MEDS: DILAUDID IV PRN ×8 (02:38→23:56)
[2018-09-18] MEDS: LANOXIN PO SCH (08:30)
[2018-09-18] MEDS: ZOLOFT PO SCH (08:32)
[2018-09-18] MEDS: MAG-OX PO SCH (08:32)
[2018-09-18] MEDS: PERIDEX MT SCH ×2 (08:32→20:57)
[2018-09-18] MEDS: MARINOL PO SCH ×2 (08:32→20:56)
[2018-09-18] MEDS: ZOFRAN IV PRN (11:29)
[2018-09-18] MEDS: ULTRAM PO PRN ×2 (14:50→22:01)
--- NOTE | 2018-09-18 20:25 | GENERAL SURGERY PROGRESS NOTE ---
DATE: 09/18/2018 SUBJECTIVE: Doing okay. He is having some pain. No fevers. No tachycardia. His abdomen is soft, appropriately tender. His Schumacher is out and he is voiding. I reviewed his labs from yesterday. Overall, I think he is progressing as expected. I am going to increase his Dilaudid to every 1 hour. He is having some pain. Otherwise, I think he is doing well. cc: Larissa Sinha MD
[2018-09-18] MEDS: PROTONIX PO SCH (23:01)
[2018-09-19] MEDS: DILAUDID IV PRN ×7 (03:05→23:05)
[2018-09-19] MEDS: NS 1,000 ML IV SCH ×3 (04:37→23:01)
[2018-09-19] MEDS: ULTRAM PO PRN ×3 (04:57→19:59)
[2018-09-19] MEDS: MARINOL PO SCH ×2 (09:54→20:04)
[2018-09-19] MEDS: LANOXIN PO SCH (09:55)
[2018-09-19] MEDS: PERIDEX MT SCH ×2 (09:55→20:00)
[2018-09-19] MEDS: ZOLOFT PO SCH (09:55)
[2018-09-19] MEDS: MAG-OX PO SCH (09:55)
--- NOTE | 2018-09-19 19:46 | GENERAL SURGERY PROGRESS NOTE ---
DATE: 09/19/2018 SUBJECTIVE: Doing well. He is voiding. No fevers. No tachycardia. OBJECTIVE: Vital signs: Blood pressure 143/80. Abdomen: Soft, appropriately tender. He is in no acute distress. He is moving well. No new labs this morning. ASSESSMENT AND PLAN: A 63-year-old gentleman status post total abdominal colectomy with ileorectal anastomosis. Continue to advance him per the ERA as per protocol. He is on appropriate home medications. Pain control has been a bit of an issue. He does have a narcotic history. He is on Dilaudid. This is maintaining it well. I am going to start him on Lovenox today. When he has return of bowel function, we will allow him to go home. cc: Larissa Sinha MD
[2018-09-19] MEDS: LOVENOX SUBQ SCH (19:59)
[2018-09-19] MEDS: PROTONIX PO SCH (20:00)
[2018-09-19] MEDS: ZOFRAN IV PRN (20:02)
[2018-09-20] MEDS: ULTRAM PO PRN ×4 (02:02→21:06)
[2018-09-20] MEDS: ZOFRAN IV PRN ×2 (03:08→06:01)
[2018-09-20] MEDS: DILAUDID IV PRN ×7 (03:09→21:06)
[2018-09-20] MEDS: ZOLOFT PO SCH (08:51)
[2018-09-20] MEDS: PERIDEX MT SCH ×2 (08:51→21:07)
[2018-09-20] MEDS: MAG-OX PO SCH (08:51)
[2018-09-20] MEDS: LANOXIN PO SCH (08:52)
[2018-09-20] MEDS: MARINOL PO SCH ×2 (08:52→21:06)
[2018-09-20] MEDS: NS 1,000 ML IV SCH (09:05)
--- NOTE | 2018-09-20 18:28 | GENERAL SURGERY PROGRESS NOTE ---
DATE: 09/20/2018 SUBJECTIVE: Doing well. Abdomen soft, feel some rumbling but no flatus yet. Tolerating clears, is ambulating. No fevers. No tachycardia. Incision is intact. No cellulitis. ASSESSMENT AND PLAN: A 63-year-old gentleman status post total abdominal colectomy with ileorectal anastomosis. Will continue awaiting bowel function let him go home when he does. cc: aLrissa Sinha MD
[2018-09-20] MEDS: LOVENOX SUBQ SCH (21:05)
[2018-09-20] MEDS: PROTONIX PO SCH (21:06)
[2018-09-21] MEDS: DILAUDID IV PRN ×6 (02:36→21:31)
[2018-09-21] MEDS: NS 1,000 ML IV SCH ×3 (03:08→21:44)
[2018-09-21] MEDS: ULTRAM PO PRN ×3 (08:30→21:31)
[2018-09-21] MEDS: PERIDEX MT SCH ×2 (08:30→21:31)
[2018-09-21] MEDS: ZOLOFT PO SCH (08:30)
[2018-09-21] MEDS: LANOXIN PO SCH (08:31)
[2018-09-21] MEDS: MAG-OX PO SCH (08:32)
[2018-09-21] MEDS: MARINOL PO SCH ×2 (08:32→21:31)
[2018-09-21] MEDS ORDERED: GLYCERIN ADULT PR ONE (10:14)
--- NOTE | 2018-09-21 10:42 | GENERAL SURGERY PROGRESS NOTE ---
DATE: 09/21/2018 SUBJECTIVE: The patient is doing fairly well this morning. He does complain of some abdominal pain, but this has been stable. He is sipping and drinking clears without nausea or vomiting. However, he has yet to pass a bowel movement or flatus since surgery. He is postoperative day 5 total abdominal colectomy. OBJECTIVE: Vital Signs: He is afebrile. Vital signs are stable. General: He is awake, alert, oriented x3. No acute distress. CV: Regular rate and rhythm. Respiratory: No work of breathing. Gastrointestinal: Soft. Minimal distention. Incision is clean, dry, and intact. He has mild to moderate tenderness. No rebound or guarding. He does have a few bowel sounds, but not overly active. LABORATORY: None today. ASSESSMENT AND PLAN: A 63-year-old male postoperative day 5 total abdominal colectomy with ileorectal anastomosis. We are awaiting good return of bowel function. He is ambulating some, which I have encouraged more. I am going to start milk of magnesia and a glycerin suppository to try to assist for gentle bowel stimulation. cc: MD Larissa Wilson MD
[2018-09-21] MEDS: MILK OF MAGNESIA PO SCH ×2 (11:10→21:31)
[2018-09-21] MEDS: PROTONIX PO SCH (21:31)
[2018-09-21] MEDS: LOVENOX SUBQ SCH (21:32)
[2018-09-21] MEDS: ZOFRAN IV PRN (21:40)
[2018-09-22] MEDS: NS 1,000 ML IV SCH ×2 (02:10→07:50)
[2018-09-22] MEDS: ULTRAM PO PRN ×3 (06:13→20:21)
[2018-09-22] MEDS: DILAUDID IV PRN ×4 (06:13→17:15)
[2018-09-22] MEDS: MAG-OX PO SCH (10:23)
[2018-09-22] MEDS: PERIDEX MT SCH ×2 (10:23→20:22)
[2018-09-22] MEDS: MILK OF MAGNESIA PO SCH ×2 (10:23→20:22)
[2018-09-22] MEDS: LANOXIN PO SCH (10:24)
[2018-09-22] MEDS: MARINOL PO SCH ×2 (10:25→20:22)
[2018-09-22] MEDS: ZOLOFT PO SCH (10:25)
[2018-09-22] MEDS: ZOFRAN IV PRN ×2 (10:39→20:22)
--- NOTE | 2018-09-22 14:27 | GENERAL SURGERY PROGRESS NOTE ---
DATE: 09/22/2018 SUBJECTIVE: The patient continues to complain of some abdominal bloating, distention, and pain. He did pass a little gas but not much yesterday. He continues to tolerate a liquid diet. He did ambulate in the room yesterday. OBJECTIVE: He is afebrile. Vital signs are stable. General: He is awake, alert, oriented x4. No acute distress. GI: Soft, mildly distended, appropriately tender. Incisions are clean, dry, and intact. He does have a few bowel sounds. ASSESSMENT AND PLAN: A 63-year-old male status post total abdominal colectomy with ileorectal anastomosis. He appears to have a postoperative ileus. We will keep him on a liquid diet for now. Encourage further ambulation and being out of bed to a chair today. We will continue his gentle bowel stimulation and await further improvement in his bowel function. cc: MD aLrissa Wilson MD
[2018-09-22] MEDS: LOVENOX SUBQ SCH (20:21)
[2018-09-22] MEDS: PROTONIX PO SCH (20:22)
[2018-09-23] MEDS: DILAUDID IV PRN ×7 (03:17→22:02)
[2018-09-23] MEDS: ZOFRAN IV PRN (03:17)
[2018-09-23] MEDS: NS 1,000 ML IV SCH ×3 (03:17→12:05)
[2018-09-23] MEDS: ULTRAM PO PRN (05:33)
[2018-09-23] MEDS: MAG-OX PO SCH (09:03)
[2018-09-23] MEDS: LANOXIN PO SCH (09:03)
[2018-09-23] MEDS: ZOLOFT PO SCH (09:03)
[2018-09-23] MEDS: MARINOL PO SCH ×2 (09:04→20:23)
[2018-09-23] MEDS: PERIDEX MT SCH ×2 (09:05→20:23)
[2018-09-23] MEDS: MILK OF MAGNESIA PO SCH (09:06)
--- NOTE | 2018-09-23 13:54 | GENERAL SURGERY PROGRESS NOTE ---
DATE: 09/23/2018 SUBJECTIVE: Doing well. He is having bowel function. Pain is controlled. We will advance his diet, Hep-Lock him and plan for home tomorrow. cc: Larissa Sinha MD
[2018-09-23] MEDS: PROTONIX PO SCH (20:23)
[2018-09-23] MEDS: LOVENOX SUBQ SCH (20:24)
[2018-09-24] MEDS: ULTRAM PO PRN ×2 (04:15→12:34)
[2018-09-24] MEDS: NS 1,000 ML IV SCH (04:17)
[2018-09-24] MEDS: DILAUDID IV PRN ×2 (09:03→16:13)
[2018-09-24] MEDS: MARINOL PO SCH ×2 (09:03→21:00)
[2018-09-24] MEDS: ZOFRAN IV PRN ×2 (09:03→16:14)
[2018-09-24] MEDS: LANOXIN PO SCH (09:04)
[2018-09-24] MEDS: ZOLOFT PO SCH (09:04)
[2018-09-24] MEDS: PERIDEX MT SCH ×2 (09:04→21:01)
--- NOTE | 2018-09-24 18:10 | GENERAL SURGERY PROGRESS NOTE ---
DATE: 09/24/2018 SUBJECTIVE: Doing well. He is passing gas. He is having some discomfort. No fevers. No tachycardia overnight. OBJECTIVE: Blood pressure has been normal 109 to 146 for him, oxygen 94%. General: He is alert, no acute distress. Abdomen is soft. He is tender at his incision, but it is intact with no cellulitis. He has had several bowel movements. He is voiding without difficulty. ASSESSMENT AND PLAN: This is a 63-year-old gentleman status post total abdominal colectomy. He is doing well. He is having bowel function. I think he is otherwise ready go home, but his family has gone out of town, and he has no one to care for him. As such, we will monitor him this evening going forward. cc: Larissa Sinha MD
[2018-09-24] MEDS: LOVENOX SUBQ SCH (21:00)
[2018-09-24] MEDS: PROTONIX PO SCH (21:00)
[2018-09-25 06:38] LABS: BASO# 0.07 X1000 (0.0-0.2); BASO% 0.5 % (0.0-0.8); HEMATOCRIT 39.9 % (42.0-52.0); HEMOGLOBIN 13.1 g/dL (14.0-18.0); IMM GRAN# 0.08 X1000 (0.0-0.04); IMM GRAN% 0.5 % (0.0-0.5); LYMPH# 1.08 X1000 (1.2-3.4); LYMPH% 7.2 % (20.5-51.1); MCH 31.1 PG (27-31); MCHC 32.8 g/dL (33-37); MCV 94.8 FL (81-99); MONO# 0.78 X1000 (0.11-0.59); MONO% 5.2 % (1.7-9.3); MPV 10.5 FL (7.4-10.4); NEUT# 13.05 X1000 (1.4-6.5); NEUT% 86.6 % (42.2-75.2); PLT 175 X1000 (130-400); RBC 4.21 XMIL (4.7-6.1); RDW 16.1 % (11.5-14.5); WBC 15.06 X1000 (4.8-10.8)
[2018-09-25] MEDS: DILAUDID IV PRN ×2 (06:49→19:46)
[2018-09-25 06:59] LABS: AGAP 12; BUN 13 mg/dL (8-22); CALCIUM 7.7 mg/dL (8.8-10.2); CHLORIDE 100 mmol/L (98-107); COSMO 268; CREATININE 0.6 mg/dL (0.7-1.2); ESTIMATED GFR > 60; GLUCOSE 58 mg/dL (70-104); MAGNESIUM 1.3 mg/dL (1.5-2.7); POTASSIUM 4.2 mmol/L (3.5-5.1); SODIUM 135 mmol/L (136-145); TCO2 23 mmol/L (25-35)
[2018-09-25] MEDS ORDERED: MAGNESIUM SULFATE 2 GM/S.W.I. 2 GM/50 ML IVPB IV ONE (08:12)
--- NOTE | 2018-09-25 08:42 | GENERAL SURGERY PROGRESS NOTE ---
DATE: 09/25/2018 SUBJECTIVE: He is doing well. Some discomfort in his incision with serosanguineous oily drainage. No fevers. OBJECTIVE: Pulse has been in the low 100s. Blood pressure 104/69. Oxygen saturation is 100 percent. General: He is alert. He is having bowel function. Abdomen is soft, nondistended. Incision is intact. There is some oily fat necrosis draining from the superior and inferior aspect that was drained but his fascia is intact upon removal of mo. White count is 15 today, down from 21 postoperatively. Hematocrit is 39. Creatinine 0.6. His glucose is a little low this morning and magnesium is low. I have repleted these. ASSESSMENT AND PLAN: This is a 63-year-old gentleman who is status post total abdominal colectomy. He is doing well overall. We will continue local wound care to his wound. I do not see any signs of infection or dehiscence. Give him some magnesium today and allow him to go home this afternoon if he tolerates all this well. See me back in a week for staple removal. I have given him written and verbal instructions. cc: Larissa Sinha MD
[2018-09-25] MEDS: PERIDEX MT SCH ×2 (08:56→21:05)
[2018-09-25] MEDS: MARINOL PO SCH ×2 (08:57→21:05)
[2018-09-25] MEDS: LANOXIN PO SCH (08:57)
[2018-09-25] MEDS: ZOLOFT PO SCH (08:58)
[2018-09-25] MEDS: ULTRAM PO PRN (09:54)
[2018-09-25] MEDS ORDERED: LR 1,000 ML IV ONE ×2 (12:16→13:03)
[2018-09-25] MEDS ORDERED: NS 0 ML ONE (12:40)
[2018-09-25] MEDS ORDERED: LR 1,000 ML ONE (12:42)
--- NOTE | 2018-09-25 12:53 | EKG Report ---
Test Performed on : 09/25/2018 12:35:58 PM Test Reason : hr 140's Blood Pressure : / mmHG Vent. Rate : 146 BPM Atrial Rate : 292 BPM P-R Int : 000 ms QRS Dur : 072 ms QT Int : 334 ms P-R-T Axes : -87 052 -88 degrees QTc Int : 520 ms Atrial flutter. with 2:1 AV conduction. Anteroseptal infarct (cited on or before 19-JUL-2018) ST & T wave abnormality, consider inferior ischemia Abnormal ECG When compared with ECG of 19-JUL-2018 06:37, Significant changes have occurred Confirmed by Matteo BRIGGS, Frankie Rodriguez ([id number]) on 09/27/2018 9:01:41 AM
[2018-09-25 14:28] LABS: MAGNESIUM 1.9 mg/dL (1.5-2.7); POTASSIUM 4.4 mmol/L (3.5-5.1)
--- NOTE | 2018-09-25 15:22 | CONSULTATION ---
DATE OF CONSULTATION: 09/25/2018 CHIEF COMPLAINT: Came into the hospital on 09/16/2018 and had an open right ascending colectomy by Dr. Sinha. Consult requested by : Dr. Nicanor Sinha HISTORY OF PRESENT ILLNESS: Mr. Echevarria is a 63-year-old male who is a patient of Dr. Sinha's, who came into the hospital for an open right ascending colectomy with a history of metastatic colon cancer, being seen by Dr. Fountain. The patient has a history of atrial fibrillation and today he went into atrial flutter, heart rate 146. We were consulted for medical management and Cardiology was also consulted by Dr. Sinha. PAST MEDICAL HISTORY: The patient has history of chemo for metastatic colon cancer that he received for one year by Dr. Fountain. History of atrial fibrillation, being seen by the [facility]. The patient also has a history of bipolar disorder. 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 He has chronic stomach pain related to his cancer. The patient also has past medical history of hepatitis C diagnosis at the age of 21 and never received treatment, peptic ulcer disease with bleeding ulcer 25 years ago, bilateral peripheral neuropathy, tobacco dependence, GERD, anemia of chronic disease, and kidney stones with removal done by Dr. Barillas at [facility]. PAST SURGICAL HISTORY: Positive for colectomy on 09/16/2018, kidney stones removed at [facility] by Dr. Barillas, tonsillectomy, and liver biopsy on 11/02/2017. SOCIAL HISTORY: Alcohol abuse continues to drink 1-2 beers per week. Positive for nicotine, smoker for greater than 40 years 1ppd. History of cocaine abuse but stopped in October of last year. Occasional marijuana abuse. He lives with his son and common law . FAMILY HISTORY: He has a mother with diabetes type 2 and a daughter who at the age of 23 due to diabetes. ALLERGIES: No known drug allergies. CURRENT MEDICATIONS: He is on digoxin 125 mcg p.o. daily, Marinol 5 mg p.o. b.i.d., Lovenox 40 mg subcutaneously q 24 hours, Dilaudid 1 mg IV q three hours p.r.n. pain, Zofran 4 mg IV q six hours p.r.n. nausea, Protonix 40 mg p.o. q 24 hours, and Zoloft 100 mg p.o. daily. REVIEW OF SYSTEMS: The patient denies any headache, fever, or chills. Denies any chest pain. Does complain of some stomach tenderness upon palpation. No shortness of breath. Noted bilateral lower leg edema, +1 pitting. PHYSICAL EXAMINATION: Vital Signs: Temperature 98.6, pulse rate is 143, atrial flutter, respiratory rate 18, blood pressure 90/71 with a MAP of 75, pulse oximetry 95% on room air. DIAGNOSTIC DATA: White blood cell count 15.86, hemoglobin 13.1, hematocrit 39.9, platelets 175. Sodium 135, potassium 4.4, BUN 13, creatinine 0.6, glucose 58. ASSESSMENT AND PLAN: 1. Atrial flutter with Cardiology consulted. Will manage atrial flutter. The patient is on digoxin. Ordered recheck on Magnesium and Potassium. Awaiting results. 2. Bilateral lower leg edema will be managed by Cardiology. The patient is was on Lasix but is currently not on any right now. 3. Metastatic colon cancer being managed by Dr. Sinha and Dr. Fountain. The patient is status post colectomy. 4. Hepatitis C history. Aware. 5. Bipolar being managed by Zoloft. 6. Peptic ulcer disease. The patient is on Protonix orally. Dictated by BALDO Montiel for Arvin Reynolds MD cc: MD Larissa Juarez MD I agree with most components of consult note. In brief, a consult was requested for medical management. A face to face encounter has been performed by me. Currently, he denies any chest pain, shortness of breath or palpitation. His vitals suggest heart rate of 142/min he is low normotensive. Oh physical exam, his abdominal incision has mo and mild erythema around it. He is tachycardic No wheeze or rhonci. I will give him Digoxin 250 IV once and will follow up with cardiology recs. FIDELIA
[2018-09-25] MEDS ORDERED: CARDIZEM IV ONE (15:47)
[2018-09-25] MEDS ORDERED: LANOXIN IV ONE (15:52)
[2018-09-25] MEDS ORDERED: LOPRESSOR IV ONE (16:24)
--- NOTE | 2018-09-25 18:16 | CARDIOLOGY CONSULTATION ---
DATE: 09/25/2018 CHIEF COMPLAINT ON PRESENTATION: Presenting for a total abdominal colectomy with ileorectal anastomosis and takedown of the loop transverse colostomy. HISTORY OF PRESENT ILLNESS: Mr. Echevarria is a 63-year-old gentleman with the above issues, who has an apparent history of chronic atrial fibrillation which seems consistently present on his EKGs since September of 2017. It does not appear that he is on long-term home anticoagulation but just take some oral digoxin. At some point today he converted into an atrial flutter and is in 2:1 conduction with rates of around 150. The patient does not appear to have any acute complaints other than some mild abdominal soreness. He is breathing comfortably. He does not have any orthopnea. There is no chest pain. There is some question of some issues with encephalopathy. PAST MEDICAL HISTORY: 1. Significant for colon cancer. Currently being treated by Dr. Fountain recently was surgical interventions by Dr. Sinha. 2. Apparent chronic atrial fibrillation since at least September of 2017. No previous history of atrial flutter though. 3. History of hepatitis C infection. 4. Bipolar. 5. Peptic ulcer disease with gastroesophageal reflux. 6. Nephrolithiasis. 7. History of anemia with apparent bleeding issues associated with Xarelto as well as his colon tumor. 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 He smokes. Previous polysubstance abuse with cocaine and marijuana. FAMILY HISTORY: Significant for hypertension. REVIEW OF SYSTEMS: A 10 system review of systems is negative except for those things mentioned in the HPI. PHYSICAL EXAMINATION: Vital signs: Afebrile, heart rate is around 150 with a blood pressure 105/67. General: No acute distress. HEENT: Oropharynx moist. Poor dentition. Eye examination shows pink conjunctivae, white sclerae. Neck: Examination shows no obvious thyromegaly or thyroid tenderness. Cardiovascular: He sounds to be in a tachycardic and regular rhythm. He has no obvious murmurs. He has trace to 1+ bilateral lower extremity edema. Chest: Sounds clear bilaterally. He has no increased work of breathing. Abdomen: Soft. Mild diffuse tenderness. Recent midline surgical wound is noted and is noted to be bandaged. Skin: Warm and dry throughout without any rashes. Neurological: He is moving all extremities well. He has no lateralizing deficits. Psychiatric: He is alert, oriented, pleasant. Normal mood and affect. PERTINENT DATA: His EKG reviewed by me shows atrial flutter with a 2:1 conduction rate of 146 beats per minute. His most recent lab data shows a white count of 15, hematocrit 39, platelet count 175,000. His sodium is 135, potassium 4.4, BUN 13, creatinine 0.6. Cardiac enzymes are negative. ASSESSMENT: Mr. Echevarria is a 63-year-old gentleman recently postoperative who runs chronic atrial fibrillation and is currently in atrial flutter. PLAN: We will give him 2.5 of IV Lopressor to try to slow him down. Continue him on his oral digoxin. Further recommendations to follow. Apparently he has had some relative bleeding issues associated with this operation, so we will hold off on treatment dose anticoagulation and he had been held off of oral anticoagulants for some time secondary to bleeding issues associated with his cancer. If his rate does not come down significantly with our interventions, then we may need to consider cardioversion. cc: MD Arvin Rondon MD
[2018-09-25] MEDS ORDERED: LOPRESSOR IV PRN ×2 (18:30→21:42)
[2018-09-25] MEDS: LOPRESSOR PO SCH (19:43)
[2018-09-25] MEDS: ZOFRAN IV PRN (19:46)
[2018-09-25] MEDS ORDERED: LOPRESSOR PO SCH (21:00)
[2018-09-25] MEDS: LOVENOX SUBQ SCH (21:04)
[2018-09-25] MEDS: PROTONIX PO SCH (21:05)
[2018-09-26] MEDS: DILAUDID IV PRN ×5 (04:32→20:10)
[2018-09-26] MEDS: LOPRESSOR IV PRN ×6 (04:50→20:10)
[2018-09-26 05:53] LABS: AGAP 8; BUN 13 mg/dL (8-22); CALCIUM 7.9 mg/dL (8.8-10.2); CHLORIDE 99 mmol/L (98-107); COSMO 268; CREATININE 0.6 mg/dL (0.7-1.2); DIGOXIN 0.5 ng/mL (0.9-2.0); ESTIMATED GFR > 60; GLUCOSE 97 mg/dL (70-104); MAGNESIUM 1.6 mg/dL (1.5-2.7); POTASSIUM 3.8 mmol/L (3.5-5.1); SODIUM 134 mmol/L (136-145); TCO2 27 mmol/L (25-35)
[2018-09-26] MEDS: PERIDEX MT SCH ×2 (08:38→20:10)
[2018-09-26] MEDS: ZOLOFT PO SCH (08:39)
[2018-09-26] MEDS: LANOXIN PO SCH (08:39)
[2018-09-26] MEDS: LOPRESSOR PO SCH ×2 (08:39→20:10)
[2018-09-26] MEDS: MARINOL PO SCH ×2 (08:39→20:10)
--- NOTE | 2018-09-26 08:46 | PROGRESS NOTE ---
DATE: 09/26/2018 SUBJECTIVE: This patient is lying comfortably in bed. He has been having bowel movements and passing gas. He is status post total abdominal colectomy, and he seems to be doing well. He started having atrial flutter. He has a history of atrial fibrillation. He is not on anticoagulation. This has been stopped by Hematology/Oncology Department, Dr. Fountain as an outpatient. Today, this patient has a flutter and the rate is around 140s to 150s. I told the nurse to give him a dose of metoprolol tartrate 2.5 IV to see if that can help with the heart rate. Otherwise, the patient is feeling better. OBJECTIVE: Vital Signs: Temperature 98.5 degrees, pulse 150, respiratory rate 17, blood pressure 100/75, and oxygen saturation 90 on room air. HEENT: Head normocephalic. No trauma. PERRLA. Neck: Supple. No JVD. No masses. Central trachea. Chest: Clear to auscultation. No wheezing. No rales. Cardiovascular: Irregularly irregular rhythm. Tachycardic. Abdomen: Soft, but diffuse tenderness to palpation throughout and slightly distended. He has a midline scar that is covered with a dressing. Neurological: The patient is alert. He is oriented x3. No focal deficits. LABORATORY: Sodium 134, potassium 3.8, chloride 99, bicarbonate 27, BUN 13, creatinine 0.6, glucose 97, calcium 7.9, CK 19, and magnesium 1.6. ASSESSMENT AND PLAN: 1. Atrial flutter with RVR. He will receive at this moment a dose of metoprolol tartrate 2.5 mg to see the response. We will continue with metoprolol and digoxin per mouth. Cardiology Department following this patient. Electrolytes within normal limits. 2. Left-sided colon cancer, right-sided sessile polyp, status post total abdominal colectomy with ileorectal anastomosis, takedown of loop transverse colostomy dated 09/16/2018. He seems to be doing okay. He is passing gas and having some bowel movements. Surgery Department on board. 3. Metastatic colon cancer followed by Dr. Fountain as an outpatient. 4. History of hepatitis C. Aware. 5. History of bipolar disorder. Continue with Zoloft. 6. Peptic ulcer disease. Continue with Protonix. 7. History of recent sepsis and right upper extremity abscess with surrounding cellulitis status post I and D and culture positive for MRSA. He was discharged 2 months ago on 07/23/2018, and he looks like he completed treatment with Zyvox. cc: Cortez Belcher MD
[2018-09-26] MEDS ORDERED: MAGNESIUM SULFATE 2 GM/S.W.I. 2 GM/50 ML IVPB IV ONE (13:30)
--- NOTE | 2018-09-26 14:05 | CARDIOLOGY PROGRESS NOTE ---
DATE: 09/26/2018 SUBJECTIVE: The patient has no complaints today. He has no chest pain. He is tolerating oral intake. PHYSICAL EXAMINATION: He is afebrile. His heart rate during my examination was 130, blood pressure 92/64. General: No acute distress. Cardiovascular: He sounds to be in an irregularly irregular rhythm. No murmurs. No S3. He has no lower extremity edema. Chest: Examination is clear bilaterally. He has no increased work of breathing. Abdomen: Soft, nontender. PERTINENT DATA: Sodium is 134, potassium is 3.8, his BUN is 13, creatinine 0.6, magnesium level is 1.6. His digoxin level was 0.5. ASSESSMENT: Mr. Echevarria is a 63-year-old gentleman who is status post operative intervention of his colon cancer. PLAN: He has gone into atrial flutter. Patient is normally in chronic atrial fibrillation and rate controlled. He is quite tachycardic presently. We will try tentatively for transesophageal echocardiogram and cardioversion in the morning. I will discuss with Dr. Sinha regarding anticoagulation. I have repleted his electrolytes, specifically his magnesium. cc: MD Cortez Rondon MD
[2018-09-26] MEDS: ULTRAM PO PRN (14:51)
[2018-09-26] MEDS: HEPARIN 25,000 UNITS/D5W 25,000 UNIT/250 ML IV.SOLN IV SCH (15:22)
--- NOTE | 2018-09-26 20:05 | GENERAL SURGERY PROGRESS NOTE ---
DATE: 09/26/2018 SUBJECTIVE: Continues to be in RVR despite attempts at medical management. Plan is for cardioversion tomorrow. His abdomen is soft. He continues to have bowel function. He is not in any distress. Minimal serosanguineous drainage from his wound. Troponins have been negative. His potassium and magnesium is better, but his potassium is 3.8. Dr. Christianson wants to start him on anticoagulation. I have recommended heparin drip non bolus for this and will monitor his hematocrits perioperatively. Otherwise, stable from a cardiac standpoint. I suspect him to be ready to go home. cc: MD Cortez Juares MD
[2018-09-26] MEDS: PROTONIX PO SCH (20:10)
[2018-09-27] MEDS: LOPRESSOR IV PRN ×2 (03:35)
[2018-09-27] MEDS: DILAUDID IV PRN ×2 (03:35)
[2018-09-27 06:05] LABS: BASO# 0.04 X1000 (0.0-0.2); BASO% 0.2 % (0.0-0.8); EOS# 0.11 X1000 (0.0-0.7); EOS% 0.6 % (0.0-10.0); HEMATOCRIT 42.2 % (42.0-52.0); HEMOGLOBIN 13.9 g/dL (14.0-18.0); IMM GRAN# 0.13 X1000 (0.0-0.04); IMM GRAN% 0.7 % (0.0-0.5); LYMPH# 1.97 X1000 (1.2-3.4); LYMPH% 10.9 % (20.5-51.1); MCH 30.8 PG (27-31); MCHC 32.9 g/dL (33-37); MCV 93.4 FL (81-99); MONO# 1.48 X1000 (0.11-0.59); MONO% 8.2 % (1.7-9.3); MPV 10.7 FL (7.4-10.4); NEUT# 14.34 X1000 (1.4-6.5); NEUT% 79.4 % (42.2-75.2); PLT 237 X1000 (130-400); RBC 4.52 XMIL (4.7-6.1); RDW 16.3 % (11.5-14.5); WBC 18.07 X1000 (4.8-10.8)
[2018-09-27 06:23] LABS: INR 1.15; PROTIME 15.7 Seconds (11.0-16.0)
[2018-09-27 06:44] LABS: AGAP 8; ALB/GLOB RATIO 0.5; ALBUMIN 1.9 g/dL (3.5-5.0); ALKALINE PHOSPHATASE 123 U/L (32-122); BUN 20 mg/dL (8-22); CALCIUM 7.9 mg/dL (8.8-10.2); CHLORIDE 98 mmol/L (98-107); COSMO 268; CREATININE 0.7 mg/dL (0.7-1.2); ESTIMATED GFR > 60; GLUCOSE 82 mg/dL (70-104); GOT 49 U/L (10-34); GPT 29 U/L (10-44); POTASSIUM 3.9 mmol/L (3.5-5.1); SODIUM 133 mmol/L (136-145); TCO2 27 mmol/L (25-35); TOTAL BILIRUBIN 1.94 mg/dL (0.20-1.00); TOTAL PROTEIN 5.4 g/dL (6.3-8.3)
[2018-09-27 06:57] LABS: LYMPHS 6 % (21-51); MONO 2 % (1-9); SEGS 92 % (42-75)
--- NOTE | 2018-09-27 07:28 | EKG Report ---
Test Performed on : 09/27/2018 06:25:43 AM Test Reason : GUERO/Cardioversion Blood Pressure : / mmHG Vent. Rate : 151 BPM Atrial Rate : 302 BPM P-R Int : 000 ms QRS Dur : 072 ms QT Int : 226 ms P-R-T Axes : 165 063 -58 degrees QTc Int : 358 ms Atrial flutter. with 2:1 AV conduction. Low voltage QRS Cannot rule out Anteroseptal infarct (cited on or before 19-JUL-2018) Abnormal ECG When compared with ECG of 25-SEP-2018 12:35, (Unconfirmed) No significant change was found Confirmed by Matteo BRIGGS, Frankie Rodriguez ([id number]) on 09/27/2018 9:06:41 AM
--- NOTE | 2018-09-27 08:26 | PROGRESS NOTE ---
DATE: 09/27/2018 SUBJECTIVE: Patient is lying comfortably in bed. No big changes compared with yesterday. He is still having a-flutter/a-fibrillation with RVR. The plan is to do a cardioversion today. He has been placed on heparin drip. OBJECTIVE: Vital Signs: Temperature 97.9 degrees, pulse at this moment on the monitor 150, respiratory rate 15, blood pressure 88/62 at 4 a.m., oxygen saturation 97% on 2 L of nasal cannula. HEENT: Head normocephalic, no trauma. PERRLA. Neck: Supple. No JVD. No masses. Central trachea. Chest: Clear to auscultation. No wheezing. No rales. Cardiovascular: Irregularly irregular rate and rhythm, tachycardic. Abdomen: Soft. Diffuse tenderness to palpation throughout and is slightly distended. He has a midline scar that is covered with a dressing that looks clean, dry and intact. Positive bowel sounds. Extremities: Trace edema. No clubbing, no cyanosis. Neurological: The patient is alert and oriented x3. No focal neurological deficits. LABORATORY: WBC 18, hemoglobin 13.9, hematocrit 42.2, platelets 237. Sodium 133, potassium 3.9, chloride 98, bicarbonate 27, BUN 20, creatinine 0.7, glucose 82, calcium 7.9, albumin 1.9. ASSESSMENT AND PLAN: 1. Atrial flutter/atrial fibrillation with rapid ventricular response. The plan is to go ahead and do transesophageal echocardiogram cardioversion today. Cardiology Department on board. He has been placed on heparin drip. We will continue to monitor. 2. Left-sided colon cancer, right-sided sessile polyps, status post total abdominal colectomy with ileorectal anastomosis, takedown of loop transverse colostomy dated 09/16/2017. He seems to be doing better. He is passing gas and having some bowel movements. Surgery is on board. 3. Metastatic colon cancer followed by Dr. Fountain as an outpatient. 4. History of hepatitis C. Aware. 5. History of bipolar disorder. Continue with Zoloft. 6. Peptic ulcer disease. Continue with Protonix. 7. History of recent sepsis and right upper extremity abscess with surrounding cellulitis. Status post incision and drainage, and culture positive for methicillin-resistant Staphylococcus aureus. He was discharged 2 months ago, and he completed treatment with Zyvox. cc: Cortez Belcher MD
[2018-09-27] MEDS: LOPRESSOR PO SCH ×2 (09:16→20:37)
[2018-09-27] MEDS: LANOXIN PO SCH (09:16)
[2018-09-27] MEDS: ZOLOFT PO SCH (09:16)
[2018-09-27] MEDS: PERIDEX MT SCH ×2 (09:17→20:37)
[2018-09-27] MEDS ORDERED: DIPRIVAN 1% ONE (09:44)
[2018-09-27] MEDS ORDERED: ANESTHESIA PB SET 88 IN 5742 ONE (10:06)
[2018-09-27] MEDS ORDERED: NS 1,000 ML ONE (10:06)
[2018-09-27] MEDS ORDERED: CLAVE TWINSITE 32 IN 11959 ONE (10:06)
--- NOTE | 2018-09-27 10:50 | ECHO REPORT ---
ORDER DATE: 09/27/2018 TRANSESOPHAGEAL ECHOCARDIOGRAM PRIOR TO CARDIOVERSION: INDICATION: Patient is in atrial flutter. INTERPRETING PHYSICIAN: Dr. Kartik Solis. PROCEDURE: Informed consent was obtained. The patient was brought to the cardiac catheterization laboratory. His oropharynx was anesthetized using Cetacaine spray. Propofol was given. Please see detailed anesthesia records. A transesophageal probe was easily passed into the esophagus and ultrasound pictures were obtained. FINDINGS: 1. Normal left ventricular cavity size. Estimated ejection fraction of 60%. 2. Aortic valve leaflets are trileaflet. 3. Mitral valve was normal. 4. Tricuspid valve was normal. 5. Pulmonic valve was normal. 6. Left atrium was normal. Left atrial appendage was normal. 7. There is no aortic stenosis. There is mild aortic regurgitation. 8. There is mild mitral regurgitation. 9. Mild tricuspid regurgitation. 10. Pulmonic valve was normal. 11. Descending aorta had layered plaque. CONCLUSIONS: 1. Normal left ventricular cavity size. Estimated ejection fraction of 60%. 2. There is mild aortic regurgitation. 3. There was no clot noted in the left atrial appendage or in the left atrium or in the left atrium or left ventricle. RECOMMENDATIONS: Proceed with cardioversion. cc: MD Fred Valentino MD Omar J. Sosa-Chirinos, MD
--- NOTE | 2018-09-27 10:55 | OPERATIVE NOTE ---
PROCEDURE DATE: 09/27/2018 PROCEDURE: Cardioversion. DESCRIPTION OF PROCEDURE IN DETAIL: Informed consent was obtained. The patient underwent a transesophageal echocardiogram. The patient was given propofol. Please see detailed anesthesia records. The patient was cardioverted to sinus rhythm with a single shock of 50 biphasic synchronized cardioversion. Patient was in sinus rhythm. No complications. cc: MD Cortez Valentino MD
[2018-09-27] MEDS: MARINOL PO SCH ×2 (12:00→20:36)
--- NOTE | 2018-09-27 12:45 | EKG Report ---
Test Performed on : 09/27/2018 12:38:08 PM Test Reason : S/P GUERO/CVN Blood Pressure : / mmHG Vent. Rate : 085 BPM Atrial Rate : 085 BPM P-R Int : 152 ms QRS Dur : 082 ms QT Int : 332 ms P-R-T Axes : 067 081 -18 degrees QTc Int : 395 ms Normal sinus rhythm. Low voltage QRS Cannot rule out Anteroseptal infarct (cited on or before 19-JUL-2018) T wave abnormality, consider inferior ischemia Abnormal ECG When compared with ECG of 27-SEP-2018 06:25, Significant changes have occurred Confirmed by Matteo BRIGGS, Frankie Rodriguez ([id number]) on 09/30/2018 12:48:19 PM
[2018-09-27] MEDS ORDERED: HEPARIN IV ONE (14:00)
[2018-09-27] MEDS ORDERED: MISC. PHARMACY COMMUNICATION SCH ×2 (15:00)
[2018-09-27] MEDS: HEPARIN 25,000 UNITS/D5W 25,000 UNIT/250 ML IV.SOLN IV SCH (16:03)
--- NOTE | 2018-09-27 17:32 | GENERAL SURGERY PROGRESS NOTE ---
DATE: 09/27/2018 SUBJECTIVE: I saw the patient in the analytical laboratory technician as he was undergoing cardioversion and GUERO. Per report, he has been a little confused. No fevers. He remains in atrial flutter, but after cardioversion, he converted to sinus rhythm. OBJECTIVE: O2 sats have been in the low 90s. Abdomen is soft. His midline incision is intact. There is no cellulitis. LABORATORY DATA: His white count is up to 18, hematocrit is 42, creatinine 0.7. Bilirubin is mildly elevated. ASSESSMENT AND PLAN: This is a 63-year-old gentleman status post total abdominal colectomy. He has now been cardioverted for refractory atrial flutter. We will continue electrolyte repletion. I appreciate the hospitalists and the cardiology service's assistance. Plan is to watch him in the ICU. He is on a heparin infusion. We will plan to switch to an oral anticoagulant as an outpatient. cc: MD Cortez Juares MD
[2018-09-27] MEDS: ZOSYN 3.375 GM in NS 50 ML IV SCH ×2 (18:15→23:35)
[2018-09-27] MEDS: PROTONIX PO SCH (20:37)
[2018-09-28] MEDS: ZOSYN 3.375 GM in NS 50 ML IV SCH ×4 (05:20→23:51)
[2018-09-28 05:55] LABS: BASO# 0.03 X1000 (0.0-0.2); BASO% 0.2 % (0.0-0.8); EOS# 0.02 X1000 (0.0-0.7); EOS% 0.1 % (0.0-10.0); HEMATOCRIT 36.9 % (42.0-52.0); IMM GRAN# 0.12 X1000 (0.0-0.04); IMM GRAN% 0.7 % (0.0-0.5); LYMPH# 1.59 X1000 (1.2-3.4); LYMPH% 8.8 % (20.5-51.1); MCH 30.2 PG (27-31); MCHC 32.5 g/dL (33-37); MCV 92.7 FL (81-99); MONO# 2.17 X1000 (0.11-0.59); MPV 10.4 FL (7.4-10.4); NEUT# 14.18 X1000 (1.4-6.5); NEUT% 78.2 % (42.2-75.2); PLT 257 X1000 (130-400); RBC 3.98 XMIL (4.7-6.1); WBC 18.11 X1000 (4.8-10.8)
[2018-09-28 06:21] LABS: AGAP 8; BUN 23 mg/dL (8-22); CALCIUM 8.3 mg/dL (8.8-10.2); CHLORIDE 95 mmol/L (98-107); COSMO 273; ESTIMATED GFR > 60; GLUCOSE 186 mg/dL (70-104); MAGNESIUM 1.8 mg/dL (1.5-2.7); PHOSPHORUS 3.8 mg/dL (2.7-4.5); SODIUM 132 mmol/L (136-145); TCO2 29 mmol/L (25-35)
--- NOTE | 2018-09-28 06:28 | GENERAL SURGERY PROGRESS NOTE ---
DATE: 09/28/2018 The patient's bowels seem to be moving. He is doing okay after his cardioversion. He looks like he is in normal sinus rhythm. He is tolerating his heart-healthy diet. At this point given the patient's comorbidities, would like to continue to watch him through the weekend. Allow Dr. Sinha to see him on Sunday. cc: MD Cortez Babin MD
[2018-09-28 08:19] LABS: BANDS 8 % (0-1); LYMPHS 18 % (21-51); MONO 2 % (1-9); SEGS 72 % (42-75)
[2018-09-28 08:20] LABS: HYPOCHROM 1+
--- NOTE | 2018-09-28 08:48 | PROGRESS NOTE ---
DATE: 09/28/2018 SUBJECTIVE: Patient is lying comfortably in bed. He is status post cardioversion. At this moment, he is in normal sinus rhythm. He is still on the heparin drip. Surgery Department evaluated this patient, and they recommended to keep the patient over the weekend given his multiple comorbidities, and probably discharge on Sunday. OBJECTIVE: Vital Signs: Temperature 97.4 degrees, pulse 83, respiratory rate 25, blood pressure 118/66, oxygen saturation 100% on 4 L of nasal cannula. HEENT: Head normocephalic, no trauma. PERRLA. Neck: Supple. No JVD. No masses. Central trachea. Chest: Clear to auscultation. No wheezing. Some crepitus at the bases. Cardiovascular: RRR. Abdomen: Soft. Diffuse tenderness to palpation throughout, especially around the periumbilical area and around the wound. He has a midline wound that is covered with a dressing that looks clean, dry, and intact. Positive bowel sounds. Extremities: Trace edema. No clubbing, no cyanosis. Neurological examination: The patient is alert and oriented x3. No focal deficits. LABORATORY: WBC 18, hemoglobin 13.9, hematocrit 42.2, platelet 237. Sodium 133, potassium 3.9, chloride 98, bicarbonate 27. BUN 20, creatinine 0.7, glucose 82, calcium 7.9, albumin 1.9. ASSESSMENT AND PLAN: 1. Atrial flutter/atrial fibrillation with rapid ventricular response, status post cardioversion, now converted to sinus rhythm. Cardiology Department following this patient. He has been placed on heparin drip. Hopefully, we will switch it to oral treatment. I will let Cardiology Department to decide further management. 2. Left-sided colon cancer, right-sided sessile polyp. Status post total abdominal colectomy with ileorectal anastomosis, takedown of loop transverse colostomy dated 09/16/2017. He seems to be doing good. He is passing gas and having some bowel movements. Surgery on board. They have recommended to keep the patient probably until next Sunday due to his multiple comorbidities. 3. Metastatic colon cancer, followed by Dr. Fountain as an outpatient. 4. History of hepatitis C, aware. 5. History of bipolar disorder. Continue with Zoloft. 6. Peptic ulcer disease. Continue with Protonix. 7. History of recent sepsis and right upper extremity abscess with surrounding cellulitis, status post incision and drainage, and culture positive for methicillin-resistant Staphylococcus aureus. He was discharged 2 months ago because of that condition, and he completed treatment with Zyvox. Overall, this patient is doing better. He is still on a heparin drip. I will let Cardiology Department decide what kind of anticoagulation they want to use. He seems to be doing good. He is not eating too much though. I talked to the patient about it. Surgery Department has recommended to keep the patient until Sunday, given his multiple comorbidities. This patient has been using oxygen; at this moment, he is on 4 L. We will try to wean this patient off oxygen. I will get a new x-ray tomorrow morning. cc: Cortez Belcher MD
[2018-09-28] MEDS: PERIDEX MT SCH ×2 (09:33→20:53)
[2018-09-28] MEDS: MARINOL PO SCH ×2 (09:33→20:53)
[2018-09-28] MEDS: LOPRESSOR PO SCH (09:33)
[2018-09-28] MEDS: ZOLOFT PO SCH (09:34)
[2018-09-28] MEDS: LANOXIN PO SCH (09:34)
[2018-09-28] MEDS: HEPARIN 25,000 UNITS/D5W 25,000 UNIT/250 ML IV.SOLN IV SCH (10:28)
[2018-09-28] MEDS: LOVENOX SUBQ SCH (16:28)
--- NOTE | 2018-09-28 18:20 | PROGRESS NOTE ---
DATE: 09/28/2018 SUBJECTIVE: The patient continues without chest discomfort, dyspnea or palpitations. He continues in sinus rhythm following GUERO/cardioversion yesterday. OBJECTIVE: Blood pressure 100/60, heart rate 78, oxygen saturation 93%. There is no significant jugular venous distention. Chest is clear to auscultation. Cardiac exam reveals a regular rate and rhythm without appreciable murmur or gallop. There is no evidence of peripheral edema. LABORATORY DATA: Includes a white blood cell count of 18.11, hematocrit 36.9, hemoglobin 12.5, platelet count 257,000. Sodium 132, potassium 5.0, chloride 95, carbon dioxide 29, BUN 23, creatinine 1.0, glucose 186. Magnesium 1.8. IMPRESSION: 1. Paroxysmal atrial arrhythmias, with persistent atrial fibrillation and transient atrial flutter. The patient continues in sinus rhythm following recent transesophageal echocardiogram cardioversion. 2. Colon cancer. 3. History of hepatitis C infection. RECOMMENDATIONS: 1. Given previous instances of atrial fibrillation including previous cardioversion in 2013, recurrent atrial fibrillation in 09/2017 which persisted thereafter, and more recent atrial flutter, it would appear prudent to initiate antiarrhythmic therapy to try and maintain sinus rhythm. We will initiate sotalol 80 mg twice daily and stop metoprolol. 2. Switch from intravenous heparin to Lovenox 1 mg/kg subcutaneously q.12. 3. Ultimately would consider switching the patient to oral anticoagulation such as Eliquis at time of discharge. cc: MD Cortez Ambrose MD
[2018-09-28] MEDS: BETAPACE PO SCH (20:53)
[2018-09-28] MEDS: PROTONIX PO SCH (20:53)
--- NOTE | 2018-09-28 21:16 | GENERAL SURGERY PROGRESS NOTE ---
DATE: 09/28/2018 Called. The patient apparently was getting up a significant amount of serosanguineous fluid coming from his incision, came to see the patient. He did have several 100 mL of fluid, looked serosanguineous. He has an opening in the superior aspect of the incision looks like he has some superficial skin dehiscence. I probed the wound. For all intents and purposes, his fascia appears intact. I cannot feel a dehiscence at this point. We will monitor him. cc: MD Cortez Babin MD
[2018-09-29] MEDS: ZOSYN 3.375 GM in NS 50 ML IV SCH ×4 (05:18→23:21)
[2018-09-29] MEDS: LOVENOX SUBQ SCH ×2 (05:18→15:39)
[2018-09-29 06:24] LABS: BASO# 0.04 X1000 (0.0-0.2); BASO% 0.2 % (0.0-0.8); EOS# 0.01 X1000 (0.0-0.7); EOS% 0.1 % (0.0-10.0); HEMATOCRIT 36.4 % (42.0-52.0); HEMOGLOBIN 12.1 g/dL (14.0-18.0); IMM GRAN# 0.09 X1000 (0.0-0.04); IMM GRAN% 0.5 % (0.0-0.5); LYMPH# 1.43 X1000 (1.2-3.4); LYMPH% 8.4 % (20.5-51.1); MCH 30.7 PG (27-31); MCHC 33.2 g/dL (33-37); MCV 92.4 FL (81-99); MONO# 1.93 X1000 (0.11-0.59); MONO% 11.3 % (1.7-9.3); MPV 10.2 FL (7.4-10.4); NEUT# 13.58 X1000 (1.4-6.5); NEUT% 79.5 % (42.2-75.2); PLT 226 X1000 (130-400); RBC 3.94 XMIL (4.7-6.1); RDW 15.6 % (11.5-14.5); WBC 17.08 X1000 (4.8-10.8)
[2018-09-29 06:42] LABS: AGAP 9; BUN 17 mg/dL (8-22); CALCIUM 7.7 mg/dL (8.8-10.2); CHLORIDE 95 mmol/L (98-107); COSMO 263; CREATININE 0.8 mg/dL (0.7-1.2); ESTIMATED GFR > 60; GLUCOSE 69 mg/dL (70-104); POTASSIUM 3.7 mmol/L (3.5-5.1); SODIUM 131 mmol/L (136-145); TCO2 27 mmol/L (25-35)
[2018-09-29 06:56] LABS: BANDS 6 % (0-1); LYMPHS 8 % (21-51); SEGS 84 % (42-75)
--- NOTE | 2018-09-29 06:56 | GENERAL SURGERY PROGRESS NOTE ---
DATE: 09/29/2018 SUBJECTIVE: The patient has been hemodynamically stable, he has been doing okay. I did come in last night to see him for significant amount of drainage from his midline incision. Again, I probed his wound last night, it feels like the fascia is intact at this point. Nursing staff reports the drainage amount has decreased but still there. I still do not see anything like evisceration, I still think his fascia is intact, so we will need to monitor him. We will have Dr. Sinha evaluate him again tomorrow. cc: MD Cortez Babin MD
--- NOTE | 2018-09-29 08:08 | Diag Imaging Result Doc PS360 ---
EXAM: CHEST-PORTABLE INDICATION: dyspnea TECHNIQUE: One view COMPARISON: 07/17/2018 FINDINGS: The port catheter, which is looping in the internal jugular vein is in stable position. The tip is still directed downward. The small nodular density in the left midlung zone is stable. There is blunting of the left costophrenic angle suggesting a likely small effusion. No pneumothorax is appreciated. The cardiomediastinal silhouette and central vasculature are grossly unremarkable. IMPRESSION: Likely small left effusion. Stable chest with no definite acute pathology, otherwise. Electronically signed by Quentin Méndez 09/29/2018 8:06 AM
[2018-09-29] MEDS: PERIDEX MT SCH ×2 (08:47→20:22)
[2018-09-29] MEDS: LANOXIN PO SCH (08:47)
[2018-09-29] MEDS: BETAPACE PO SCH ×2 (08:47→20:22)
[2018-09-29] MEDS: MARINOL PO SCH ×2 (08:48→20:22)
[2018-09-29] MEDS: ZOLOFT PO SCH (08:48)
--- NOTE | 2018-09-29 12:57 | PROGRESS NOTE ---
DATE: 09/29/2018 INTERVAL HISTORY: The patient remains in normal sinus rhythm, status post cardioversion. Tolerating diet. Remains on oxygen but appears to have significant room to wean. No new complaints. No acute events overnight. REVIEW OF SYSTEMS: Twelve point review of systems negative except as per interval history. LABS: WBC 7.0, hemoglobin 12.1, hematocrit 36.4, platelets 226,000. PTT 34.3. Sodium 131, potassium 3.7, BUN 17, creatinine 0.8, glucose 69 this morning. IMAGING: Chest x-ray with small left effusion but otherwise no acute pathology. VITALS: T-max 98.4 degrees, pulse 64, respirations 18, blood pressure 115/50, O2 saturation is 95% on room air. PHYSICAL EXAMINATION: General: No acute distress. Vitals: As above. HEENT: Normocephalic, atraumatic. Moist mucous membranes. No cervical adenopathy. Cardiovascular: Regular rate and rhythm. No murmurs noted. Pulmonary: Clear to auscultation bilaterally. Abdomen: Soft. Abdominal incision with some drainage. Minimal expected postop tenderness. Bowel sounds positive. Extremities: Peripheral pulses intact. No clubbing or cyanosis. Neurologic: Cranial nerves grossly intact. No focal deficits identified. Psychiatric: Normal mood and affect. Awake, alert, oriented x3. Skin: No new rashes or lesions identified. Abdomen heavily bandaged. ASSESSMENT AND PLAN: 1. Atrial fibrillation with rapid ventricular response. The patient remains in normal sinus rhythm status post cardioversion. Continue digoxin as per cardiology. Likely transition to sotalol noted. Will likely start oral Eliquis at the time of discharge. 2. Colon cancer, status post colectomy. Patient eating and drinking well. Passing gas, having some bowel movements. Drainage from the wound but surgery has evaluated and does believe the wound is intact and not infected. They wish to continue watching him at least one more day to make sure no further intervention is needed on his wound. 3. Metastatic colon cancer, following with Dr. Fountain as an outpatient. 4. History of hepatitis C, aware, stable. 5. Bipolar disorder. Continue Zoloft. 6. Peptic ulcer disease. Continue Protonix. 7. Disposition. Patient is stable from a medical perspective. Transitioning to oral antiarrhythmic as per cardiology. Medically stable for discharge once surgery feels the patient is ready from their perspective. The patient has been on oxygen but it looks like he probably does not need it, so we will discuss oxygen weaning with nursing. Repeat chest x-ray with no pathology. If patient appears to develop true hypoxia, will consider further workup.
[2018-09-29] MEDS ORDERED: CALMOSEPTINE OINTMENT TOP PRN (18:38)
[2018-09-29] MEDS: PROTONIX PO SCH (20:22)
[2018-09-30] MEDS: LOVENOX SUBQ SCH (03:21)
[2018-09-30] MEDS: ZOSYN 3.375 GM in NS 50 ML IV SCH ×3 (05:11→18:53)
--- NOTE | 2018-09-30 07:02 | EKG Report ---
Test Performed on : 09/29/2018 6:34:35 PM Test Reason : PAF Blood Pressure : / mmHG Vent. Rate : 063 BPM Atrial Rate : 063 BPM P-R Int : 152 ms QRS Dur : 090 ms QT Int : 460 ms P-R-T Axes : 068 068 037 degrees QTc Int : 470 ms Normal sinus rhythm. Possible Left atrial enlargement Cannot rule out Anterior infarct (cited on or before 19-JUL-2018) Abnormal ECG When compared with ECG of 27-SEP-2018 12:38, (Unconfirmed) Questionable change in initial forces of Anterior leads T wave inversion less evident in Inferior leads Nonspecific T wave abnormality, improved in Anterior leads QT has lengthened Confirmed by Matteo BRIGGS, Frankie Rodriguez ([id number]) on 09/30/2018 12:49:02 PM
[2018-09-30] MEDS: ZOLOFT PO SCH (10:30)
[2018-09-30] MEDS: PERIDEX MT SCH (10:30)
[2018-09-30] MEDS: LANOXIN PO SCH (10:31)
[2018-09-30] MEDS: MARINOL PO SCH (10:31)
[2018-09-30] MEDS: BETAPACE PO SCH (11:50)
--- NOTE | 2018-09-30 13:06 | EKG Report ---
Test Performed on : 09/30/2018 12:58:49 PM Test Reason : s/p GUERO and DCCV, hx Afib Blood Pressure : / mmHG Vent. Rate : 062 BPM Atrial Rate : 062 BPM P-R Int : 144 ms QRS Dur : 088 ms QT Int : 476 ms P-R-T Axes : 060 061 039 degrees QTc Int : 483 ms Normal sinus rhythm. Possible Anterior infarct (cited on or before 19-JUL-2018) Abnormal ECG When compared with ECG of 29-SEP-2018 18:34, No significant change was found Confirmed by Matteo BRIGGS, Frankie Rodriguez ([id number]) on 10/01/2018 9:06:29 AM
--- NOTE | 2018-09-30 14:36 | PROGRESS NOTE ---
DATE: 09/30/2018 INTERVAL HISTORY: Drainage from abdominal wound decreasing. Site well off of oxygen. Remains in normal sinus rhythm status post cardioversion. Tolerating diet. Complains only of wanting to get out of the hospital. No acute events overnight. REVIEW OF SYSTEMS: Twelve point is negative except as per interval history. LABS: WBC 17.0, hemoglobin 12.1, hematocrit 36.4, platelets 226,000. Sodium 131, potassium 3.7, BUN 17, creatinine 0.8, glucose 69. Vitals: T-max 98.9 degrees, pulse 63, respirations 18, blood pressure 101/53, O2 saturation 95% on room air . PHYSICAL EXAM: General: No acute distress. Vitals as above. HEENT: Normocephalic, atraumatic. Moist mucous membranes. No cervical adenopathy. Cardiovascular: Regular rate and rhythm. No murmurs noted. Pulmonary: Clear to auscultation bilaterally. No wheezing, rales or rhonchi. Abdomen: Soft, abdominal incision bandaged. Bandage clean, dry, intact. Minimal expected postop tenderness stable, bowel sounds positive. Extremities: Peripheral pulses intact. No clubbing or cyanosis. Neurologic: Cranial nerves grossly intact. No focal deficits identified. Psychiatric: Normal mood and affect. Awake, alert, oriented x3. Skin: No new rashes or lesions identified. Abdomen bandaged as above. ASSESSMENT AND PLAN: 1. Atrial fibrillation with rapid ventricular response. Patient remains in normal sinus rhythm status post cardioversion. Continue digoxin and sotalol as per Cardiology. Likely start oral Eliquis at time of discharge. 2. Colon cancer status post colectomy. Patient eating, drinking well. Passing gas, having small bowel movements. Drainage from wound decreasing. Anticipate discharge once cleared by surgery. 3. Metastatic colon cancer following with Dr. Fountain as an outpatient. 4. History of hepatitis C stable aware. 5. Bipolar disorder. Continue Zoloft. 6. Peptic ulcer disease. Continue Protonix.
--- NOTE | 2018-09-30 17:29 | GENERAL SURGERY PROGRESS NOTE ---
DATE: 09/30/2018 SUBJECTIVE: Doing okay. Abdomen is soft. Much less cellulitis. No fevers. No tachycardia. Blood pressure has been systolics in the 90s and low 100s. He is having bowel function, it is downtrending in frequency, and still soft and liquid. He is eating some although appetite is not normal. He is voiding appropriately amount. LABORATORY DATA: I reviewed his labs. White count 17, hematocrit 36. Creatinine 0.8, potassium is 5.7. Sodium is chronically low at 131. Heart rate has been sinus rhythm. He had an x-ray on the that showed no evidence of pneumonia. OBJECTIVE: Abdomen: Soft. incisions intact. ASSESSMENT AND PLAN: A 63-year-old gentleman status post total abdominal colectomy with ileorectal anastomosis. Overall, he is doing okay. From a cardiac standpoint, he is much improved. He is ambulating. He is voiding. He is tolerating a diet. Bowels are functioning. Plan is to let him go home tomorrow. Plan is to start him back on Eliquis. Will most likely complete a course of antibiotics given for early erythema of his incision. cc: Larissa Sinha MD MTDD
[2018-10-01] MEDS: BETAPACE PO SCH ×3 (00:46→09:34)
[2018-10-01] MEDS: MARINOL PO SCH ×4 (00:46→21:11)
[2018-10-01] MEDS: PERIDEX MT SCH ×3 (00:46→21:11)
[2018-10-01] MEDS: ELIQUIS PO SCH ×3 (00:47→21:12)
[2018-10-01] MEDS: PROTONIX PO SCH ×2 (00:48→21:11)
[2018-10-01] MEDS: ZOSYN 3.375 GM in NS 50 ML IV SCH ×4 (00:48→17:48)
[2018-10-01] MEDS: DILAUDID IV PRN ×2 (06:47→09:53)
[2018-10-01] MEDS: LANOXIN PO SCH (09:33)
[2018-10-01] MEDS: ZOLOFT PO SCH (09:35)
--- NOTE | 2018-10-01 13:42 | PROGRESS NOTE ---
DATE: 10/01/2018 INTERVAL HISTORY: The patient is still doing well. Remains in normal sinus rhythm since the cardioversion. Tolerating diet well. Pain well controlled. No acute events overnight. REVIEW OF SYSTEMS: Twelve point review of systems negative, except as per interval history. VITALS: T-max 98.9 degrees, pulse 60, respirations 16, blood pressure 93/53, O2 saturation 95% on room air. PHYSICAL EXAMINATION: General: No acute distress. Vitals: As above. HEENT: Normocephalic, atraumatic. Moist mucous membranes. Neck: No cervical adenopathy. Cardiovascular: Regular rate and rhythm. No murmurs noted. Pulmonary: Clear to auscultation bilaterally. No wheezing, rales, or rhonchi heard. Abdomen: Soft. Abdominal midline incision bandaged. Bandage clean, dry and intact. Bowel sounds positive. Extremities: Peripheral pulses intact. No clubbing or cyanosis. Neurologic: Cranial nerves grossly intact. No focal deficits identified. Psychiatric: Normal mood and affect. Awake, alert, oriented x3. Skin: No new rashes or lesions seen. Abdominal incision bandaged as above. ASSESSMENT AND PLAN: 1. Atrial fibrillation with rapid ventricular response. Patient remains in normal sinus rhythm, status post cardioversion. Continue digoxin and sotalol as per Cardiology. Likely start oral Eliquis at the time of discharge. 2. Colon cancer status post colectomy. Patient eating and drinking well. Passing gas, having small bowel movements. Drainage removed decreased. Anticipate discharge once cleared by Surgery, likely on an oral antibiotic, possibly clindamycin. 3. Metastatic colon cancer. Patient following with Dr. Fountain as an outpatient. 4. Hepatitis C, stable. Aware. 5. Bipolar disorder. Continue Zoloft. 6. Peptic ulcer disease. Continue Protonix.
--- NOTE | 2018-10-01 20:14 | GENERAL SURGERY PROGRESS NOTE ---
DATE: 10/01/2018 SUBJECTIVE: He seems a little confused this morning. Still very weak. No fevers. No tachycardia. Some drainage from the incision. This seems to be getting better. No new labs this morning, but he did have some from the [facility]th hospitalists are following. He remains in sinus rhythm. I reviewed his medications. He does have Dilaudid, Eliquis, Marinol, Lopressor, Zofran, Zoloft. He is on Zosyn for his superficial wound infection. ASSESSMENT AND PLAN: A 61-year-old gentleman status post total abdominal colectomy. He has become quite debilitated and I think he is going to need rehab placement. We will work on this. 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 Otherwise, he has physical therapy ordered. cc: Larissa Sinha MD
[2018-10-02] MEDS: BETAPACE PO SCH ×2 (01:09→08:39)
[2018-10-02] MEDS: ZOSYN 3.375 GM in NS 50 ML IV SCH ×4 (01:10→17:35)
[2018-10-02] MEDS: DILAUDID IV PRN ×3 (01:27→20:31)
[2018-10-02] MEDS: PERIDEX MT SCH ×2 (08:38→20:30)
[2018-10-02] MEDS: MARINOL PO SCH ×2 (08:38→20:31)
[2018-10-02] MEDS: ELIQUIS PO SCH ×2 (08:38→20:30)
[2018-10-02] MEDS: ZOLOFT PO SCH (08:38)
[2018-10-02] MEDS: LANOXIN PO SCH (08:39)
[2018-10-02] MEDS: ULTRAM PO PRN (08:50)
[2018-10-02] MEDS: ZOFRAN IV PRN (13:03)
--- NOTE | 2018-10-02 14:30 | PROGRESS NOTE ---
DATE: 10/02/2018 INTERVAL HISTORY: Patient progressing slowly with physical therapy. Remains in normal sinus rhythm since cardioversion. Tolerating diet well. Pain well controlled. No acute events overnight. No new complaints. REVIEW OF SYSTEMS: Twelve point review of systems negative except as per interval history. LABS: WBC 17.0, hemoglobin 12.1, hematocrit 36.4, platelets 226,000. Sodium 131, potassium 3.7, BUN 17, creatinine 0.8, glucose 69. VITAL SIGNS: T-max 98.3 degrees, pulse 62, respirations 16, blood pressure 97/60, O2 saturation 99% on room air. PHYSICAL EXAMINATION: General: No acute distress. Vital signs: As above. HEENT: Normocephalic, atraumatic. Moist mucous membranes. No cervical adenopathy. Cardiovascular: Regular rate and rhythm. No murmurs noted. Pulmonary: Clear to auscultation bilaterally. No wheezing, rales, or rhonchi noted. Abdomen: Soft. Minimal tenderness around surgical incision, without rebound or guarding. Abdominal midline incision bandaged. Bandage clean, dry, intact. Bowel sounds positive. Extremities: Peripheral pulses intact. No clubbing or cyanosis. Neurologic: Cranial nerves grossly intact. No focal deficits identified. Psychiatric: Normal mood and affect. Awake, alert, oriented x3. Skin: No new rashes or lesions seen. Abdominal incision bandaged as above. ASSESSMENT AND PLAN: 1. Atrial fibrillation with rapid ventricular response. Remains in normal sinus rhythm since cardioversion. Continue digoxin, sotalol as per Cardiology. Likely start oral Eliquis at the time of discharge. 2. Blood pressure. Patient with blood pressure which usually remains in the low normal range. Has had 1 or 2 slightly lower readings today but the patient appears to be asymptomatic. No orthostatics symptoms. No fevers. No increased cough. No dyspnea. Abdominal exam unchanged. We will monitor and consider further workup if the trend continues. 3. Colon cancer, status post colectomy. Patient eating and drinking well. Having bowel movements. Drainage from wound decreased. Anticipate discharge once rehab placement obtained. 4. Metastatic colon cancer. Patient following with Dr. Fountain as an outpatient. 5. Hepatitis C, stable. Aware. 6. Bipolar disorder. Continue home Zoloft. 7. Peptic ulcer disease. Continue Protonix.
--- NOTE | 2018-10-02 14:50 | GENERAL SURGERY PROGRESS NOTE ---
DATE: 10/02/2018 SUBJECTIVE: Doing okay. He is ambulating. Strength is improving. No fevers. No tachycardia. Intermittent waxing and waning confusion consistent with delirium and/or multifactorial encephalopathy OBJECTIVE: Drainage on his dressing is improving. He is more alert, sitting on the edge of the bed. LABORATORY: I reviewed his labs from the . ASSESSMENT AND PLAN: This is a 61-year-old gentleman status post total abdominal colectomy. He is doing well. Overall, he is quite debilitated and weak. He is tolerating a diet and voiding. He does have some drainage from his incision, mostly fat necrosis possibly, but no evidence fascial dehiscence. He has been on Zosyn. Cellulitis resolved. He has not had any fevers. Given his physical deconditioning and intermittent delirium related to encephalopathy from prolonged hospitalization I do feel disposition to Rehab is indicated to hopefully prevent complication and or readmission. cc: Larissa Sinha MD MTDD
[2018-10-02] MEDS: PROTONIX PO SCH (20:30)
[2018-10-03] MEDS: BETAPACE PO SCH ×2 (00:57→09:35)
[2018-10-03] MEDS: ZOSYN 3.375 GM in NS 50 ML IV SCH ×3 (01:33→12:26)
[2018-10-03] MEDS: DILAUDID IV PRN ×2 (01:34→09:48)
[2018-10-03 03:46] LABS: MAGNESIUM 1.4 mg/dL (1.5-2.7); POTASSIUM 2.8 mmol/L (3.5-5.1)
[2018-10-03] MEDS ORDERED: MAGNESIUM SULFATE 4 GM/S.W.I. 4 GM/100 ML IVPB IV ONE (04:44)
[2018-10-03] MEDS: KLOR-CON PO SCH ×2 (05:10→09:34)
[2018-10-03] MEDS ORDERED: NS 500 ML ONE (06:46)
[2018-10-03] MEDS: ZOLOFT PO SCH (09:35)
[2018-10-03] MEDS: ELIQUIS PO SCH (09:35)
[2018-10-03] MEDS: MARINOL PO SCH (09:35)
[2018-10-03] MEDS: PERIDEX MT SCH (09:35)
[2018-10-03 11:17] VITALS: BP 110/66
[2018-10-03] MEDS: LANOXIN PO SCH (12:27)
--- NOTE | 2018-10-03 12:40 | DISCHARGE SUMMARY ---
ADMISSION DATE: 09/16/2018 DISCHARGE DATE: 10/03/2018 ADMISSION DIAGNOSIS: Left-sided colon cancer, right-sided polyp. DISCHARGE DIAGNOSIS: Left-sided colon cancer, right-sided polyp. PROCEDURES PERFORMED DURING THIS HOSPITALIZATION: 1. Total abdominal colectomy. 2. Transesophageal echocardiogram with cardioversion. HISTORY OF PRESENT ILLNESS: This is a 61-year-old gentleman who underwent neoadjuvant therapy for metastatic colon cancer. He had excellent clinical response, and recovered well from his chemotherapy, and wanted his colostomy reversed. He also was noted to have a right-sided sessile polyp. HOSPITAL COURSE: Patient was taken to the operating room on the day of surgery, and was cleared by Anesthesia for the above procedure. For details, please see dictated operative note. Postoperatively, he was admitted. Pain control is an issue. It did take the better part of a week to have a return of bowel function, but he did and this was normal. He was able to void without difficulty. He remained quite weak, debilitated, and not feeling well. He had some social issues limiting his ability to go home, and then went into atrial flutter with RVR that failed medical rate control. He underwent cardioversion on 09/27/2018. From this point on, he did well. He was resumed back on his Eliquis. He was on a heparin drip leading up to this cardioversion. He was started on Eliquis after. He had some serosanguineous drainage from his wound, and a little bit of erythema. We drained this at the bedside. The fascia was intact, and we did treat him with a course of Zosyn and noted the resolution of this. He did well, but remained weak. He had some delirium at night related to multifactorial encephalopathy. It was felt that further disposition to rehab was indicated. On the day of his discharge, he was tolerating a diet. His bowels and bladder were working well. His incision drainage was much improved as was the erythema. His labs were appropriate. He did have persistent leukocytosis throughout his stay. MEDICATIONS: 1. Eliquis 5 mg p.o. b.i.d. 2. Digoxin 125 mcg p.o. daily. 3. Marinol 5 mg b.i.d. 4. Protonix 40 mg p.o. daily. 5. Zoloft 100 mg p.o. daily. 6. Sotalol 40 mg p.o. b.i.d. 7. [place] 10. DISPOSITION: To rehab. DISCHARGE DIET: GI soft. cc: MD Arvin Juares MD
== END 2018-10-03 15:28 | DRG 330 ==
LOC: SUATTDRO 04:10 → SURHOLD 04:10 → 4N 17:05 → 3S 09-25 22:05 → 4N 09-30 17:29
PROVIDERS: ADMIT Internal Medicine; ATTEND Surgery
CPT/HCPCS: 71010; 71045; 80048; 80053; 80162; 81001; 82550; 83735; 84100; 84132; 84484; 85025; 85027; 85610; 85730; 86850; 86900; 86901; 87324; 87449; 88309; 88313; 92960; 93005; 93010; 93306; 93312; 94760; 94761; 94799; 97110; 97116; 97162; 97530; A9270; C9113; J0131; J0330; J1100; J1170; J1335; J1644; J1650; J2250; J2405; J2543; J3010; J3475; J7030; J7040; J7120; S0164

== ENCOUNTER 2018-11-04 14:30 | Inpatient (IN) ==
[2018-11-04] MEDS ORDERED: NS 1,000 ML ONE (15:21)
[2018-11-04] MEDS ORDERED: ZOSYN 3.375 GM in NS 50 ML IV ONE (15:51)
[2018-11-04] MEDS ORDERED: VANCOMYCIN 1 GM/NS 1 GM/250 ML IVPB IV ONE (15:51)
[2018-11-04 15:56] LABS: HEMOGLOBIN 12.9 g/dL (14.0-18.0); MCV 88.7 FL (81-99); RBC 4.51 XMIL (4.7-6.1); WBC 12.79 X1000 (4.8-10.8)
[2018-11-04 15:57] LABS: BASO# 0.03 X1000 (0.0-0.2); BASO% 0.2 % (0.0-0.8); EOS# 0.01 X1000 (0.0-0.7); EOS% 0.1 % (0.0-10.0); IMM GRAN# 0.03 X1000 (0.0-0.04); IMM GRAN% 0.2 % (0.0-0.5); LYMPH# 1.02 X1000 (1.2-3.4); MCH 28.6 PG (27-31); MCHC 32.3 g/dL (33-37); MONO# 0.93 X1000 (0.11-0.59); MONO% 7.3 % (1.7-9.3); MPV 9.8 FL (7.4-10.4); NEUT# 10.77 X1000 (1.4-6.5); NEUT% 84.2 % (42.2-75.2); PLT 325 X1000 (130-400); RDW 15.2 % (11.5-14.5)
[2018-11-04 16:09] LABS: ALLEN TEST YES; BE -15.2 mmoll (-3.0-3.0); BLOOD TYPE ARTERIAL; METHB 1.4 % (0.0-1.5); O2(CT) 18.1 mL/dL (15.0-23.0); O2HB 95.3 % (95.0-99.0); PCO2(98.6) 21 mmHg (35-45); PO2(98.6) 111 mmHg (60-100); SAMPLE BLOOD; SAO2 97.3 % (95.0-100.0); THB 13.4 g/dL (11.5-17.4); pH(98.6) 7.27 (7.35-7.45)
[2018-11-04 16:09] LABS: BANDS 8 % (0-1); LYMPHS 8 % (21-51); MONO 8 % (1-9); SEGS 76 % (42-75)
[2018-11-04 16:13] LABS: INR 2.89; PROTIME 32.2 Seconds (11.0-16.0)
[2018-11-04 16:14] LABS: PTT 40.9 Seconds (22.3-41.8)
[2018-11-04] MEDS ORDERED: NS 1,000 ML IV ONE ×2 (16:14→17:03)
[2018-11-04 16:15] LABS: MODALITY ROOM AIR
[2018-11-04 16:53] LABS: ALB/GLOB RATIO 0.3; ALBUMIN 2.3 g/dL (3.5-5.0); CALCIUM 9.4 mg/dL (8.8-10.2); MAGNESIUM 2.2 mg/dL (1.5-2.7); TOTAL BILIRUBIN 1.09 mg/dL (0.20-1.00); TOTAL PROTEIN 7.1 g/dL (6.3-8.3)
--- NOTE | 2018-11-04 17:53 | Diag Imaging Result Doc PS360 ---
CT ABDOMEN/PELVIS W/O CONTRAST - 11/04/2018 INDICATION: abscess COMPARISON: 08/06/2018 FINDINGS: The lung bases are clear and the heart size is normal. There are small bilateral nonobstructing renal stones. There are several dystrophic densities throughout the liver stable from prior. There is significant peritoneal free air and free fluid worst in the left upper quadrant. There is severe patient motion artifact. IMPRESSION: Significant peritoneal free air and free fluid worsening left upper quadrant. This report was discussed with Dr. Menon on 11/04/2018 at 5:50 PM and was readback. This exam was performed using automated exposure control, adjustment of mA or kV according to patient size, and/or use of iterative reconstruction technique Electronically signed by Rashel Sheffield 11/04/2018 5:51 PM
--- NOTE | 2018-11-04 18:41 | PROVIDER DOCUMENTATION ---
This chart was entered by Noemi Rolon Scribe, acting as scribe for Opal Menon MD. HPI-Neurological Disorder - General Stated Complaint: AMS/lethargic Time Seen by Provider: 11/04/18 15:15 Source: family Allergies/Adverse Reactions: Patient Allergies Allergy/AdvReac Type Severity Reaction Status Date / Time No Known Allergies Allergy Verified 09/16/18 10:59 Home Medications: Home Medication List Medication Instructions Recorded Confirmed Last Taken Type Dronabinol [Marinol] 5 mg PO DAILY 03/12/18 09/16/18 09/15/18 History Digoxin 1 tab PO BID 09/09/18 09/16/18 09/12/18 History Hydrocodone/Acetaminophen 1 tab PO DAILY 09/09/18 09/16/18 09/15/18 History [Hydrocodone-Acetamin 10-325 mg] Sertraline [Zoloft] 100 mg PO DAILY 09/09/18 09/16/18 09/15/18 History Apixaban [Eliquis] 5 mg PO BID #60 tab 10/03/18 Unknown Rx Chlorhexidine Gluconate [Peridex] 15 ml MT BID udc 10/03/18 Unknown Rx Pantoprazole [Protonix] 40 mg PO Q24H tab 10/03/18 Unknown Rx Sotalol [Betapace] 40 mg PO BID #60 tab 10/03/18 Unknown Rx - History of Present Illness-Neuro Nature of Presenting Problem: Patient is a 63 year old male who presents to the ED via EMS with altered mental status. Family states patient has been lethargic since yesterday. History of colon cancer with recently colectomy. Family also states patient has had a decrease in appetite. Family does not report nausea and vomiting. Severity: reports: mild Onset/Duration: reports: 24 hours ago Timing: reports: still present Context: reports: other (AMS) Character of Altered Mental Status: reports: other (lethargic) Any recent trauma/injury?: reports: none Associated Symptoms: reports: other (decrease in appetite.) Similar Symptoms Previously?: Yes Recently seen or treated by another doctor?: No Review of Systems - Adult - REVIEW OF SYSTEMS - ADULT ROS:: ROS per family Constitutional: reports: no symptoms reported. denies: chills, fever, fatique Eyes: reports: no symptoms reported Ears, Nose, Mouth & Throat: reports: no symptoms reported Cardiovascular: reports: no symptoms reported Respiratory: reports: no symptoms reported Gastrointestinal: reports: see HPI, poor appetite. denies: diarrhea, nausea, vomiting Genitourinary: reports: no symptoms reported Musculoskeletal: reports: no symptoms reported Integumentary: reports: no symptoms reported Neurological: reports: see HPI, other (AMS - lethargic). denies: dizziness/vertigo, headache/migraines, syncope Psychiatric: reports: no symptoms reported Endocrine: reports: no symptoms reported Hematologic/Lymphatic: reports: no symptoms reported Allergic/Immunologic: reports: no symptoms reported All Other Systems: Reviewed and Negative Past History - Adult - PAST MEDICAL HISTORY-ADULT Review of Records: reports: Old Records Reviewed, Nursing Assessment Review, Medications Reviewed, Social history reviewed & non-contributory. Major Childhood Illnesses: reports: denies history Cardiovascular: reports: A-Fib Respiratory: reports: denies history Gastrointestinal: reports: cancer, hepatitis, ulcer Obstetrical/Gynecological: reports: denies history Genitourinary: reports: kidney stones Musculoskeletal: reports: denies history Neurological: reports: denies history Psychiatric: reports: anxiety, bipolar Endocrine/Immune: reports: denies history Other Conditions: reports: denies history - PRIOR SURGERIES/PROCEDURES Surgical/Procedure History: reports: tonsillectomy, bowel surgery, gastric bypass - IMMUNIZATION STATUS Childhood Immunizations: See Nurse Assessment Flu Vaccine: See Nurse Assessment - FAMILY HISTORY Family History: reviewed, not pertinent - SOCIAL HISTORY Smoking: cigarettes, less than 1 pack/day Provider spent 3-5 mins advising pt. on dangers of tobacco.: Discussed manners to quit use, and f/u contacts for add'l counseling. Substance Use: denies Physical Exam- Neurological - Physical Exam-Neuro Initial Vital Signs Reviewed: Yes General Appearance: no apparent distress, cachetic, lethargic, other (response to verbal stimuli.). negative: obtunded HENMT: normocephalic/atraumatic, moist mucous membranes. negative: angioedema, hearing deficit Head Injury: no evidence of injury. negative: contusions, ecchymosis, lacerations Respiratory: chest non-tender, lungs clear, normal breath sounds. negative: crackles, stridor, wheezing Cardiovascular: normal peripheral pulses, tachycardia. negative: systolic murmur Abdominal Exam: normal bowel sounds, soft, tenderness (RUQ and RLQ). negative: guarding, rebound Extremity: non-tender, normal inspection. 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 negative: cyanosis, ecchymosis, erythema, jaundice, rash Psych/Mental Status: disoriented x 3, other (lethargic). negative: normal mood/affect, paranoid Progress - PLAN OF CARE/RESULTS Progress/Plan/Lab Results: Vital Signs - 8 hr 11/04/18 14:49 11/04/18 14:51 11/04/18 15:02 Temperature Pulse Rate 135 H 135 H 136 H Respiratory Rate 32 H 29 H 31 H Blood Pressure 105/62 105/62 98/43 O2 Sat by Pulse Oximetry 100 100 11/04/18 15:12 11/04/18 15:21 11/04/18 15:33 Temperature Pulse Rate 136 H 138 H 136 H Respiratory Rate 24 30 H 34 H Blood Pressure 86/47 72/54 90/48 O2 Sat by Pulse Oximetry 11/04/18 15:55 11/04/18 16:03 11/04/18 16:18 Temperature Pulse Rate 135 H 135 H 137 H Respiratory Rate 32 H 20 33 H Blood Pressure 84/64 93/62 115/45 O2 Sat by Pulse Oximetry 100 100 11/04/18 16:31 11/04/18 16:34 11/04/18 16:47 Temperature 96.9 F L Pulse Rate 138 H 138 H Respiratory Rate 36 H 31 H Blood Pressure 88/56 O2 Sat by Pulse Oximetry 100 99 11/04/18 16:48 11/04/18 16:53 11/04/18 17:01 Temperature Pulse Rate 139 H 139 H 139 H Respiratory Rate 37 H 39 H 27 H Blood Pressure 53/47 94/50 O2 Sat by Pulse Oximetry 100 100 99 11/04/18 17:02 11/04/18 17:31 11/04/18 17:37 Temperature Pulse Rate 139 H 137 H 138 H Respiratory Rate 35 H 42 H 28 H Blood Pressure 88/57 89/44 O2 Sat by Pulse Oximetry 99 11/04/18 17:46 11/04/18 18:01 11/04/18 18:17 Temperature Pulse Rate 138 H 137 H 134 H Respiratory Rate 32 H 37 H 28 H Blood Pressure 75/56 67/49 O2 Sat by Pulse Oximetry 11/04/18 18:27 Temperature Pulse Rate 133 H Respiratory Rate 31 H Blood Pressure O2 Sat by Pulse Oximetry Laboratory Results - last 24 hr 11/04/18 11/04/18 11/04/18 15:33 15:33 15:33 WBC 12.79 H RBC 4.51 L Hgb 12.9 L Hct 40.0 L MCV 88.7 MCH 28.6 MCHC 32.3 L RDW Std Deviation 15.2 H Plt Count 325 MPV 9.8 Immature Gran % (Auto) 0.2 Neut % (Auto) 84.2 H Lymph % (Auto) 8.0 L Union % (Auto) 7.3 Eos % (Auto) 0.1 Baso % (Auto) 0.2 Immature Gran # (Auto) 0.03 Neut # (Auto) 10.77 H Lymph # (Auto) 1.02 L Union # (Auto) 0.93 H Eos # (Auto) 0.01 Baso # (Auto) 0.03 Segmented Neutrophils 76 H Band Neutrophils 8 H Lymphocytes 8 L Monocytes 8 PT 32.2 H INR 2.89 PTT (Actin FS) 40.9 Specimen Type Sample Site pH pCO2 pO2 HCO3 Base Excess Oxyhemoglobin ABG O2 Sat (Calculated) ABG O2 Saturation ABG Carboxyhemoglobin ABG Methemoglobin Eb Test A-a O2 Difference Total Hemoglobin Lactate Blood Gas Modality FiO2 % Sodium 136 Potassium 4.0 Chloride 94 L Carbon Dioxide 12 L Anion Gap 27 BUN 56 H Creatinine 2.0 H Estimated GFR/1.73 m2 34 BUN/Creatinine Ratio 28 Glucose 129 H Calculated Osmolality 284 Calcium 9.4 Magnesium 2.2 Total Bilirubin 1.09 H AST 49 H ALT 24 Alkaline Phosphatase 214 H Creatine Kinase 74 Troponin T Total Protein 7.1 Albumin 2.3 L Globulin 5.3 Albumin/Globulin Ratio 0.3 Plasma Lactate 11/04/18 11/04/18 11/04/18 15:33 15:33 16:00 WBC RBC Hgb Hct MCV MCH MCHC RDW Std Deviation Plt Count MPV Immature Gran % (Auto) Neut % (Auto) Lymph % (Auto) Union % (Auto) Eos % (Auto) Baso % (Auto) Immature Gran # (Auto) Neut # (Auto) Lymph # (Auto) Union # (Auto) Eos # (Auto) Baso # (Auto) Segmented Neutrophils Band Neutrophils Lymphocytes Monocytes PT INR PTT (Actin FS) Specimen Type ARTERIAL Sample Site R RADIAL pH 7.27 L pCO2 21 L pO2 111 H HCO3 13.0 L Base Excess -15.2 L Oxyhemoglobin 95.3 ABG O2 Sat (Calculated) 18.1 ABG O2 Saturation 97.3 ABG Carboxyhemoglobin 0.60 ABG Methemoglobin 1.4 Eb Test YES A-a O2 Difference 12.0 Total Hemoglobin 13.4 Lactate 13.80 H* Blood Gas Modality ROOM AIR FiO2 % 21.0 Sodium Potassium Chloride Carbon Dioxide Anion Gap BUN Creatinine Estimated GFR/1.73 m2 BUN/Creatinine Ratio Glucose Calculated Osmolality Calcium Magnesium Total Bilirubin AST ALT Alkaline Phosphatase Creatine Kinase Troponin T < 0.010 Total Protein Albumin Globulin Albumin/Globulin Ratio Plasma Lactate 14.2 H Orders Category Date Time Status Cardiac Monitoring DIRECTED Care 11/04/18 15:41 Active IV Insertion ORDERED Care 11/04/18 15:41 Active Notify MD of + Sepsis Screen NOW Care 11/04/18 15:41 Active Notify Physician As Ordered Care 11/04/18 15:[address] ABDOMEN/PELVIS W/O CONTRAST [CT] Stat Exams 11/04/18 17:03 Completed cxr [CHEST-PORTABLE] [RAD] Stat Exams 11/04/18 18:00 Taken ABG [RESP] Routine Lab 11/04/18 16:00 Completed BLOOD CULTURE [BLDCUL] Stat Lab 11/04/18 16:23 Ordered CBC WITH DIFF [HEME] Stat Lab 11/04/18 15:33 Completed CK PROFILE [SP CHEM] Stat Lab 11/04/18 15:33 Completed COMPREHENSIVE METABOLIC PANEL [CHEM] Stat Lab 11/04/18 15:33 Completed LACTATE, PLASMA [CHEM] Lab 11/04/18 18:17 Ordered LACTATE, PLASMA [CHEM] Lab 11/04/18 21:45 Uncollected LACTATE, PLASMA [CHEM] Q3H Lab 11/04/18 15:33 Completed MAGNESIUM [CHEM] Stat Lab 11/04/18 15:33 Completed PROTIME WITH INR [COAG] Stat Lab 11/04/18 15:33 Completed PTT [COAG] Stat Lab 11/04/18 15:33 Completed TROPONIN T Stat Lab 11/04/18 15:33 Completed URINALYSIS W/POSS RFLX CULT [URINALYSIS] Stat Lab 11/04/18 15:41 Uncollected 0.9% Sodium Chloride Inj [Ns] 1,000 ml Med 11/04/18 15:21 Discontinued .ROUTE As directed 0.9% Sodium Chloride Inj [Ns] 1,000 ml Med 11/04/18 16:14 Discontinued IV 999 mls/hr 0.9% Sodium Chloride Inj [Ns] 1,000 ml Med 11/04/18 17:03 Discontinued IV 999 mls/hr Piperacillin/Tazobactam [Zosyn] 3.375 gm Med 11/04/18 15:51 Discontinued 0.9% Sodium Chloride Inj [Ns] 50 ml IV NOW Vancomycin 1 gm/Ns Med 11/04/18 15:51 Discontinued 1 gm in 250 ml IV NOW Oxygen Device Stat Oth 11/04/18 15:41 Active [facility] [address] [facility], [address], [place] [address] Department of Imaging Patient: ANGEL TURCIOS ADM Date: 11/04/18 MR#: [id number] : 1955 ADM Status: REG ER Age/Sex: 63/M Room/Bed: Loc: ED Ordering Physician: Opal Menon MD Family Physician: None,PCP Reason for Procedure: abscess Signed CT ABDOMEN/PELVIS W/O CONTRAST - 11/04/2018 INDICATION: abscess COMPARISON: 08/06/2018 FINDINGS: The lung bases are clear and the heart size is normal. There are small bilateral nonobstructing renal stones. There are several dystrophic densities throughout the liver stable from prior. There is significant peritoneal free air and free fluid worst in the left upper quadrant. There is severe patient motion artifact. IMPRESSION: Significant peritoneal free air and free fluid worsening left upper quadrant. This report was discussed with Dr. Menon on 11/04/2018 at 5:50 PM and was readback. This exam was performed using automated exposure control, adjustment of mA or kV according to patient size, and/or use of iterative reconstruction technique Electronically signed by Rashel Sheffield 11/04/2018 5:51 PM 11/04/18 1751 Interpreting Physician: Rashel Sheffield MD Dictated Date/Time: 11/04/18 1744 cc: Opal Menon MD; None,PCP Result Diagrams: 11/04/18 15:33 11/04/18 15:33 - EKG 1 Time of EKG reading by physician:: 16:42 EKG Read and Signed by:: Johnson Sadler EKG Interpretation (*Must complete 3 of following elements*): Abnormal (ST & T wave abnormality, consider inferolateral ischemia) Rate: 139 Rhythm: sinus tachycardia Elora: normal Comments: right atrial enlargement; anteroseptal infarct, age undetermined; - CONSULTS/PCP/HOSPITALIST Notification #1 *Consult/PCP/Hospitalist*: Leticia BLAND Time Discussed: 17:42 Consult Disposition: Admit #2 Consult: Dr Camargo Time Discussed: 17:56 Consult Disposition: Will see in ED Departure - Departure Date of Disposition Decision: 11/04/18 Time of Disposition Decision: 18:40 DIAGNOSIS: Septic shock Disposition: ADMITTED INPATIENT 09 Certified Medical Emergency: Emergent Condition: Stable Referrals and Follow-Ups: None,PCP [Primary Care Provider] - - Critical Care Note This patient required my direct & personal management of CC.: No Attestation - Physician/ MARGARET Attestation The physician spent face to face time with patient:: Yes Advanced Practice Provider documentation review:: Supervising physician onsite and consulted in the evaluation and care of this patient. The physician did have a face to face encounter with the patient. This chart was documented by the indicated scribe, (Noemi Rolon Scribe) and accurately reflects the services I performed and decisions made by me, Opal Menon MD, as attested by the provider's signature.
--- NOTE | 2018-11-04 18:42 | Diag Imaging Result Doc PS360 ---
CHEST-PORTABLE - 11/04/2018 INDICATION: ams COMPARISON: 09/29/2018 FINDINGS: There is a right chest port. No infiltrates throughout the lungs. Stable granuloma in the left lung. There is peritoneal free air in the upper abdomen. Heart size is normal. IMPRESSION: No acute process in the chest. Electronically signed by Rashel Sheffield 11/04/2018 6:39 PM
[2018-11-04] MEDS ORDERED: ZOFRAN IV PRN (19:07)
[2018-11-04] MEDS ORDERED: ZYVOX 600 MG/D5W 600 MG/300 ML IVPB IV SCH (19:15)
[2018-11-04 19:28] LABS: BE -9.8 mmoll (-3.0-3.0); BLOOD TYPE ARTERIAL; HCO3-(ACT) 17.3 mmoll (20.0-26.0); METHB 1.4 % (0.0-1.5); O2HB 95.5 % (95.0-99.0); PCO2(98.6) 27 mmHg (35-45); PO2(98.6) 101 mmHg (60-100); SAMPLE BLOOD; SAO2 97.4 % (95.0-100.0); THB 11.7 g/dL (11.5-17.4); pH(98.6) 7.34 (7.35-7.45)
[2018-11-04 19:29] LABS: ALLEN TEST YES; O2(CT) 15.8 mL/dL (15.0-23.0)
[2018-11-04 19:30] LABS: MODALITY ROOM AIR
[2018-11-04] MEDS ORDERED: LEVOPHED 8 MG in D5 1/2 NS 250 ML IV SCH (19:30)
[2018-11-04] MEDS: NS 1,000 ML IV SCH (20:25)
[2018-11-04] MEDS ORDERED: LOVENOX SUBQ SCH (21:00)
[2018-11-04] MEDS ORDERED: MORPHINE IV PRN (23:31)
[2018-11-04 23:36] LABS: INR 3.29; PROTIME 35.8 Seconds (11.0-16.0)
[2018-11-04] MEDS ORDERED: VITAMIN K 10 MG in NS 50 ML IV ONE (23:47)
[2018-11-05] MEDS: ZOSYN 3.375 GM in NS 50 ML IV SCH ×2 (00:07→06:00)
[2018-11-05 04:45] LABS: BLOOD TYPE ARTERIAL; HCO3-(ACT) 22.4 mmoll (20.0-26.0); PCO2(98.6) 33 mmHg (35-45); PO2(98.6) 152 mmHg (60-100); SAMPLE BLOOD; pH(98.6) 7.41 (7.35-7.45)
[2018-11-05 04:46] LABS: ALLEN TEST YES; BE -3.2 mmoll (-3.0-3.0); MODALITY CANNULA; O2(CT) 12.5 mL/dL (15.0-23.0); O2HB 96.1 % (95.0-99.0); SAO2 98.8 % (95.0-100.0)
[2018-11-05] MEDS: NS 1,000 ML IV SCH (05:48)
[2018-11-05 06:05] LABS: ALB/GLOB RATIO 0.7; ALBUMIN 2.6 g/dL (3.5-5.0); CALCIUM 8.2 mg/dL (8.8-10.2); CREATININE 1.9 mg/dL (0.7-1.2); MAGNESIUM 1.6 mg/dL (1.5-2.7); POTASSIUM 3.5 mmol/L (3.5-5.1); TOTAL BILIRUBIN 1.23 mg/dL (0.20-1.00); TOTAL PROTEIN 6.3 g/dL (6.3-8.3)
[2018-11-05 06:06] LABS: INR 2.44; PROTIME 28.3 Seconds (11.0-16.0)
[2018-11-05 06:07] LABS: PTT 54.7 Seconds (22.3-41.8)
[2018-11-05 07:07] LABS: BASO# 0.01 X1000 (0.0-0.2); BASO% 0.1 % (0.0-0.8); EOS# 0.04 X1000 (0.0-0.7); EOS% 0.3 % (0.0-10.0); HEMATOCRIT 25.7 % (42.0-52.0); HEMOGLOBIN 8.5 g/dL (14.0-18.0); IMM GRAN# 0.04 X1000 (0.0-0.04); IMM GRAN% 0.3 % (0.0-0.5); LYMPH# 1.39 X1000 (1.2-3.4); LYMPH% 9.9 % (20.5-51.1); MCH 28.8 PG (27-31); MCHC 33.1 g/dL (33-37); MCV 87.1 FL (81-99); MONO# 0.57 X1000 (0.11-0.59); MONO% 4.1 % (1.7-9.3); MPV 10.2 FL (7.4-10.4); NEUT# 11.92 X1000 (1.4-6.5); NEUT% 85.3 % (42.2-75.2); PLT 144 X1000 (130-400); RBC 2.95 XMIL (4.7-6.1); RDW 14.8 % (11.5-14.5); WBC 13.97 X1000 (4.8-10.8)
--- NOTE | 2018-11-05 07:44 | EKG Report ---
Test Performed on : 11/04/2018 8:28:23 PM Test Reason : sepsis Blood Pressure : / mmHG Vent. Rate : 136 BPM Atrial Rate : 136 BPM P-R Int : 206 ms QRS Dur : 068 ms QT Int : 274 ms P-R-T Axes : 088 084 264 degrees QTc Int : 412 ms Sinus tachycardia. Biatrial enlargement Anteroseptal infarct (cited on or before 19-JUL-2018) ST & Marked T wave abnormality, consider inferolateral ischemia Abnormal ECG When compared with ECG of 04-NOV-2018 16:42, (Unconfirmed) ST less elevated in Inferior leads Unconfirmed Result
[2018-11-05] MEDS ORDERED: DIPRIVAN 1% IV PRN (07:58)
--- NOTE | 2018-11-05 08:03 | Diag Imaging Result Doc PS360 ---
EXAM: CHEST-PORTABLE INDICATION: n/v TECHNIQUE: One view COMPARISON: 11/04/2018 FINDINGS: The right chest port is in stable position. No new consolidation is identified. The lungs are stable. The cardiac silhouette is unchanged. IMPRESSION: Stable chest with no definite acute pathology by plain radiograph. Electronically signed by Quentin Méndez 11/05/2018 8:00 AM
--- NOTE | 2018-11-05 08:06 | EKG Report ---
Test Performed on : 11/04/2018 4:42:35 PM Test Reason : ED. NO EKG ORDER FOR MUSE Blood Pressure : / mmHG Vent. Rate : 139 BPM Atrial Rate : 139 BPM P-R Int : 206 ms QRS Dur : 066 ms QT Int : 352 ms P-R-T Axes : 088 086 126 degrees QTc Int : 535 ms Sinus tachycardia. Right atrial enlargement Anteroseptal infarct (cited on or before 19-JUL-2018) ST & T wave abnormality, consider inferolateral ischemia Abnormal ECG When compared with ECG of 30-SEP-2018 12:58, Significant changes have occurred Unconfirmed Result
--- NOTE | 2018-11-05 08:09 | Diag Imaging Result Doc PS360 ---
EXAM: CHEST-PORTABLE INDICATION: intubation, tube placement, arrest. TECHNIQUE: 2 views COMPARISON: 11/05/2018 FINDINGS: There has been interval placement of an ET tube and an NG tube. The NG tube tip projects well below the diaphragm and assumed to be in the lumen of the stomach in the expected position. The ET tube tip projects over the trachea and above the dayanara at about the T2-3 level. Electrode pads project over the lower center chest. No new consolidation is identified. Cardiac silhouette is grossly stable. IMPRESSION: Interval placement of ET tube and NG tube as described. Electronically signed by Quentin Méndez 11/05/2018 8:07 AM
[2018-11-05] MEDS ORDERED: NS IV PRN (08:22)
[2018-11-05] MEDS ORDERED: MORPHINE IV PRN (08:22)
[2018-11-05] MEDS ORDERED: LACRI-LUBE OPH OINT BOTH EYES PRN (09:31)
[2018-11-05] MEDS ORDERED: ATIVAN IV PRN (10:51)
[2018-11-05] MEDS ORDERED: SODIUM BICARBONATE 8.4% ONE (13:05)
[2018-11-05] MEDS ORDERED: CALCIUM CHLORIDE ONE (13:05)
[2018-11-05] MEDS ORDERED: EPINEPHRINE SYRINGE ONE (13:05)
[2018-11-05 14:09] VITALS: BP 45/28
--- NOTE | 2018-11-05 15:08 | HISTORY AND PHYSICAL ---
PRIMARY CARE PHYSICIAN: None PCP CONSULTING MD: Dr. Camargo. CHIEF COMPLAINT: Altered mental status. HISTORY OF PRESENTING ILLNESS: This is a 63 -year-old male who presents to the emergency room with altered mental status that has been worsening over the past several days. states that the patient has colon cancer with resection over a year ago. Patient had a revision of his resection recently and was discharged from [facility] on 10/03/2018. Patient started having worsening altered mental status over the past few days where today he was unable to stand up. So she decided she needed to bring him into the ER at [facility]. states that he has been having diarrhea since the revision of his colon resection and he has not ate more than just a few bites in 3 days. Patient is a very frail, thin man who is unable to follow any directions. He is obtunded, laying in bed,eyes open, unable to track you with his eyes. Heart rate is in the 130's. Blood pressures in the 70's-80's systolic. Patient is receiving a normal saline bolus of fluid at this time for blood pressure. Patient withdraws from pain and this is his only response noted at present time. A Port-a-cath is noted to the right subclavian wall where you can see the actual line going up into the neck wall underneath the skin. Patient is very frail and thin. You can see entire rib cage across the chest. Skin is intact. There is a dressing noted to the mid abdomen. It is clean, dry and intact from revision of colon resection. Patient is being administered 2 liters IV fluid bolus for blood pressure and hydration in the ER. WBC count 12.79, Lactate 7.80, then went to 14.2 on recheck, Vancomycin and Zosyn were give, CT of the abdomen was performed and showed free-air in the abdomen, Dr. Camargo was consulted. PAST MEDICAL HISTORY: 1. Atrial fibrillation. 2. Possible seizure or cerebrovascular accident. 3. Colon cancer with mets. 4. Cataracts. 5. Tobacco dependence. 6. Gastroesophageal reflux disease. 7. Anemia of chronic disease. 8. Kidney stones. 9. Peptic ulcer disease with bleeding ulcer 25 years ago. 10.Failure to thrive. 11. Bipolar disorder PAST SURGICAL HISTORY: 1. Colon resection. 2. Colon resection revision. 3. Kidney stone removal by Dr. Barillas at [facility]. SOCIAL HISTORY: Patient lives with his spouse. He quit smoking greater than a year ago. Denies any drug or alcohol abuse. ALLERGIES: NO KNOWN DRUG ALLERGIES. MEDICATIONS: 1. Eliquis 5 mg p.o. b.i.d. 2. Digoxin 125 mcg p.o. daily. 3. Marinol 5 mg b.i.d. 4. Protonix 40 mg p.o. daily. 5. Zoloft 100 mg p.o. daily. 6. Sotalol 40 mg p.o. b.i.d.. 7. [place] 10 p.o. p.r.n. as needed. LABS AND DIAGNOSTICS: White blood cell count 12.79, hemoglobin 12.9, hematocrit 40, platelet count 325,000. PT 32.2, INR 2.89, PTT 40.9. Ph 7.34, pCO2 27, pO2 101, bicarb 17.3. Oxy- hemoglobin 95.5. Lactate 7.80. Sodium 136, potassium 4.0, chloride 94, carbon dioxide 12, anion gap 27, BUN 56, creatinine 2.0, GFR 34. Glucose 129. Calcium 9.4, magnesium 2.2, bilirubin 1.09, AST 49, ALT 24, alkaline phosphatase 214. Creatinine kinase 74. Troponin less than 0.01. Plasma lactate is 14.2. Chest x-ray done on 11/04/2018 in the emergency room shows no acute processes in the chest. CT of the abdomen and pelvis done in the emergency room on 11/04/2018 shows significant peritoneal free air and a free fluid, left upper quadrant. This report was discussed with Dr. Menon and Dr. Camargo was consulted. REVIEW OF SYSTEMS: A 12 point review of systems was performed and all was negative except what is stated above in the history of present illness. PHYSICAL EXAMINATION: VITAL SIGNS: Temperature 96.9, heart [id number], respiratory rate 31, blood pressure 75/56. The patient did receive a bolus of fluid and the blood pressure is now 101/75. O2 saturation 99% on room air. GENERAL: This is a 63 -year-old very frail, thin male who is in somewhat acute distress who is unable to follow commands, appears obtunded and altered mental status. HEENT: Atraumatic, normocephalic. Pupils equal, round, reactive to light. Mucous membranes are dry. No dentition noted. NECK: Supple, no lymphadenopathy. Trachea midline, no jugular venous distention noted. CV: No murmurs, rubs or gallops. Heart rate is 130's. Regular rate and rhythm. RESPIRATORY: Lung sounds are clear. Equal chest excursion. Respirations are nonlabored. No accessory muscle usage noted. GI: Abdomen is flat, nondistended. Bowel sounds are hypoactive NEURO: Patient is obtunded, lying in the emergency room stretcher, unable to follow commands. MUSCULOSKELETAL: Patient does move all extremities to painful stimuli. No deformities noted. EXTREMITIES: No cyanosis, clubbing or edema. DP and PT pulses are present. SKIN: Warm, dry and intact. There is a dressing noted to the mid abdominal wall that is clean, dry and intact from an old incision. ASSESSMENT: 1. Septic Shock 2. Metastatic colon cancer. 3. Encephalopathy. 4. Hypotension. 5. Acute kidney injury. PLAN: 1. We will admit this patient to the ICU. 2. We will continue with fluid hydration to increase blood pressure and start this patient on broad spectrum antibiotics for sepsis 3. We will trend lactates. 4. Possibly start this patient on Levophed drip for blood pressure control. 5. Repeat labs in the a.m. 6. Repeat chest x-ray and ABG's in the am 7. We will consult Dr. Camargo for CT results. 8. Keep the patient NPO. Patient seen and examined by me face to face, all the laboratory, vitals signs, images were reviewed, patient presented with signs of sepsis shock, probably the source on infection is is abdomen, he looks cachectic, he has metastatic colon cancer, images showed air outside the bowel, he will receive fluids, broad coverage with antibiotics, and vasopressors, surgery will be consulted but he is really unstable for any kind of surgery, he looks remarkably sick, I had a large conversation with his friend at the bedside, they live together for many years but they are not , I explained to her that he is extremely sick, and can get worse, not sure if he will survive this hospitalization, he is full code, he will be admitted to the ICU, telemetry, I agree with the IT GENERALIST's assessment and plan, Cortez Wong MD. Dictated by BALDO Montiel for Cortez Belcher MD cc: MD Franky Lemon MD [facility]
--- NOTE | 2018-11-06 18:15 | GENERAL SURGERY CONSULTATION ---
DATE: 11/04/2018 REASON FOR CONSULTATION: Nausea, vomiting, and perforated viscus. HISTORY OF PRESENT ILLNESS: This is a 63-year-old male with a complicated medical history, most notably for total abdominal colectomy and ileorectal anastomosis roughly [address] Sinha for metastatic colon cancer. He had a takedown of the loop colostomy at that time. He has been home, according to his , for about 2 weeks. He stopped eating much within the last week and became more lethargic, confused, and started complaining of abdominal pain. He was brought to the emergency room today because he just seemed like he was not himself. He was unstable and she was very concerned. Upon presentation, he was found to be hypotensive with a systolic blood pressure in the 70s to 80s. His heart rate was in the 130s. He had leukocytosis, lactic acidemia, and was felt to be in septic shock. He underwent a CT scan earlier of his abdomen and pelvis which revealed a large amount of free air in the peritoneal cavity and free fluid, and I was asked to come to assess him. On my arrival, he was able to communicate that he had some abdominal pain, but otherwise was confused and unable to carry on any conversation with me. PAST MEDICAL HISTORY: Per chart review, includes: 1. Metastatic colon cancer. 2. Atrial fibrillation. 3. History of hepatitis C. 4. Peptic ulcer disease. 5. Peripheral neuropathy. 6. Tobacco dependence. 7. GERD. 8. Anemia of chronic disease. 9. Kidney stones. 10. History of cocaine abuse. 11. Bipolar disorder. PAST SURGICAL HISTORY: 1. Diverting loop colostomy. 2. Colostomy takedown with total abdominal colectomy and ileorectal anastomosis, on 09/16/2018. 3. Kidney stone removal. 4. Tonsillectomy. 5. Liver biopsy. HOME MEDICATIONS: Unknown at the original time of my interview, but later his said he was on Eliquis and Marinol and digoxin. Further chart review also reveals Protonix, Zoloft, sotalol, and [place]. SOCIAL HISTORY: History of drug abuse, tobacco abuse. He is . FAMILY HISTORY: Reviewed and noncontributory. REVIEW OF SYSTEMS: Unobtainable. PHYSICAL EXAMINATION: Vital Signs: Temperature 96.9 degrees on presentation, pulse 130s, respiratory rate 30s, systolic blood pressure 90s to 101, diastolic in the 70s, O2 saturation 92 to 100 percent. General: He is a cachectic male who looks older than his stated age and appears acutely ill. Neuro: He is awake. He is alert. He does follow commands, but is easily distracted and forgetful and confused. HEENT: Normocephalic, atraumatic. Extraocular muscles intact. Pupils equal, round, reactive to light. Sclerae anicteric. Neck: Supple. No thyromegaly. CV: Tachycardic and regular. Respiratory: Bilateral breath sounds. No increased work of breathing. He is tachypneic. GI: Somewhat firm, nondistended. No organomegaly or mass appreciated. He does have bilateral reducible inguinal hernias. He is diffusely tender without rebound or guarding. He has an open wound in the periumbilical area of his laparotomy incision, draining some cloudy fluid. The fascia appears to be intact. Extremities: He is emaciated. No clubbing or cyanosis. Musculoskeletal: He is weak and deconditioned, but does move all extremities equally. Skin: Warm and dry. No rash. LABORATORY: White blood cell count 12.8, hemoglobin 12.9, hematocrit 40, platelet count 325,000. INR 2.89, PTT 40.9. PH 7.27, pCO2 21, PaO2 111, bicarb 13, base deficit -15, lactate 13.8. Repeat ABG at 1913 shows a pH of 7.3, pCO2 of 27, PaO2 101, bicarb 17.3, base deficit -9.8, lactate 7.8. Sodium 136, potassium 4.0, chloride 94, CO2 12, BUN 56, creatinine 2.0, glucose 129, total bilirubin 1.1, AST 49, ALT 24, alkaline phosphatase 214, albumin 2.3. IMAGING: CT as described above in HPI. ASSESSMENT AND PLAN: A 63-year-old male with septic shock and perforated viscus. The differential diagnosis includes perforated peptic ulcer, ileorectal anastomotic leak, versus other causes of ruptured bowel, such as swallowed foreign body, etc. He is unstable at this moment. He has received 2 L of normal saline. We will continue his resuscitation. He has a coagulopathy of unclear etiology. He will get at least 2 units of fresh frozen plasma and we will recheck the INR. I will also put in a central line for better intravenous access. His port is not working. He has poor peripheral venous access. He has already been given a dose of vancomycin and Zosyn, which is appropriate. If we can get him stable and his INR reversed, then he needs an exploratory laparotomy. I have discussed this with his and informed her that he is quite ill. His chances of survival are certainly diminished given his overall frailty, but I think the risks of not operating outweigh the risks of the operation. She understands there is a risk of bleeding, infection, injury to surrounding organs, possible need for bowel resection, and other imponderables. cc: Franky Camargo MD
--- NOTE | 2018-11-06 18:23 | OPERATIVE NOTE ---
PROCEDURE DATE: 11/04/2018 PREOPERATIVE DIAGNOSES: 1. Perforated viscus. 2. Septic shock. 3. Poor peripheral venous access. POSTOPERATIVE DIAGNOSES: 1. Perforated viscus. 2. Septic shock. 3. Poor peripheral venous access. PROCEDURE: Insertion of central venous catheter. SURGEON: Franky Camargo MD. ESTIMATED BLOOD LOSS: Scant. COMPLICATIONS: None apparent. TECHNIQUE: He was kept supine in his ER stretcher. His right groin was prepped and draped in usual sterile fashion. Lidocaine 1% was used to anesthetize the skin over the femoral vein. The femoral artery was palpated and then the vein was accessed medial to the artery with a needle and syringe drawing back dark nonpulsatile blood. The wire was inserted through the needle easily. The tract was dilated and a triple-lumen catheter was passed over the wire, into the vein via the Seldinger technique. The port was anchored to the skin with silk suture. Each access port lety back blood easily and was flushed with saline. A sterile dressing was applied. There were no apparent complications. cc: Franky Camargo MD
--- NOTE | 2018-11-07 16:21 | GENERAL SURGERY PROGRESS NOTE ---
DATE: 11/05/2018 SUBJECTIVE: The patient is unable to verbally communicate. Per his nurse, he has had some agitation overnight, but currently is resting calmly in bed in restraints. He has had a total of 6 units of FFP and 10 mg of vitamin K since admission in an effort to reverse his elevated INR. OBJECTIVE: Vital Signs: Temperature 98.0, pulse 138, O2 saturation 99%, respiratory rate 29, blood pressure 98/61. Urine output 50 mL so far. General: He has had one small bowel movement. In general, he is arousable, but quickly goes back to sleep. He does not follow commands. He does respond to pain. He is not verbal at this time. HEENT: Pupils are equal and round and reactive. Sclerae are anicteric. His face is sunken in. CV: Tachycardic and regular. Respiratory: Tachypneic. Bilateral breath sounds. No rales. GI: Firm, diffusely tender. Hypoactive bowel sounds. LABORATORY: Sodium 140, potassium 3.5, chloride 101, CO2 of 21, BUN 55, creatinine 1.9, glucose 279. Total bilirubin 1.2, AST 67, ALT 26, alkaline phosphatase 126. PH 7.4, pCO2 33, PaO2 152, bicarb 22, base deficit -3. Lactate 5.3. CBC is pending. INR 2.4, PTT 54.7. IMAGING: Chest x-ray this morning shows a few hazy changes in the upper lobes bilaterally. There is no free air noted on this supine radiograph. ASSESSMENT AND PLAN: A 63-year-old male in septic shock, may have a component of hypovolemic shock, likely secondary to perforated viscus. Leading diagnosis would be perforated peptic ulcer or anastomotic dehiscence. This is in the setting of chronic malnutrition and deconditioning with a history of metastatic colon cancer to the liver and previous total colectomy 6 weeks ago. Unfortunately, his INR continues to remain elevated. He may be in liver failure or disseminated intravascular coagulation (DIC). He is not an operative candidate at this time and he may not become an operative candidate. I have discussed this with Dr. Sinha who will see him and take over from surgical perspective today. We are holding off any more fresh frozen plasma at this time. I would continue Zyvox and Zosyn, IV fluids and palliative measures. PROGNOSIS: His prognosis appears quite poor. cc: Franky Camargo MD
--- NOTE | 2018-11-08 14:18 | DISCHARGE SUMMARY ---
ADMISSION DATE: 11/04/2018 DISCHARGE DATE: 11/05/2018 CONSULTATION: Surgery, Dr. Sinha. DISCHARGE DIAGNOSES: 1. Severe sepsis with septic shock. 2. Gram-negative bacteremia. 3. Acute kidney injury. 4. Anemia. 5. Paroxysmal atrial fibrillation. 6. Colon cancer. 7. Gastroesophageal reflux disease. 8. Anemia. 9. Adult failure to thrive. 10. Bipolar disorder. 11. Severe protein calorie malnutrition. HOSPITAL COURSE: The patient is a 63-year-old male with colon resection for cancer approximately a year ago. Had an ostomy. Had recent reversal of his ostomy. Presented with worsening altered mental status over the last few days with some diarrhea, some abdominal pain. The patient has had significant weight loss recently. Initial evaluation was concerning for septic shock with tachycardia, hypotension and leukocytosis. Abdominal source was favored. Patient was started on vancomycin, Zosyn and Levophed. Blood pressure did come up with Levophed. The patient did have improving lactic acidosis. Surgery was consulted, but felt he was likely too unstable to take to the OR initially. The patient did show modest improvement over the first night with some decrease in his Levophed requirements, decrease in lactic acid, relatively stable kidney function with reasonable urine output. Improved metabolic acidosis. However, this morning I was called to bedside because of cardiac arrest. CPR had been initiated. Patient received a total of 3 amps of epinephrine, 1 of calcium and 1 of bicarbonate. Rhythm was largely PEA. We did achieve return of spontaneous circulation. Blood pressure on Levophed afterwards was adequate. The patient was intubated during the code process. Pre-code ABG showed reasonable oxygenation. The case was further discussed with Surgery, who felt he was even less stable for surgical intervention and had high risk of mortality if taken to the OR. When family arrived, we discussed the situation with them, including the poor prognosis and likelihood of suffering if we put him through multiple codes. After deliberation, they did elect to make patient DNR and later comfort care. Once family had gathered, pressors were stopped with significant hypotension, but it did not immediately passed. He was later palliatively extubated and passed peacefully with morphine drip on. Total goal, total critical care time before initiation of comfort care immediately available to the patient, performing CPR, reviewing labs, making medical decisions approximately 40 minutes. DISCHARGE VITALS: Patient . DISCHARGE EXAM: Patient . DISCHARGE DIET: None. Patient . DISCHARGE MEDICATIONS: None. Patient . FOLLOWUP AND PLAN: Patient . To release body to home whenever family is ready. TIME SPENT: Greater than 30 minutes spent arranging discharge.
--- NOTE | 2018-11-08 15:17 | GENERAL SURGERY PROGRESS NOTE ---
DATE: 11/05/2018 SUBJECTIVE: Patient seen this morning. He had been resuscitated with FFP and IV fluids and hemodynamically somewhat improved. He remained very tachycardic. OBJECTIVE: On exam, he is tachycardic with the heart rate in the 140s and 150s. His blood pressure systolic is 90. He is on nasal cannula sating in the low 90s. General: He appears alert but he is nonconversant. Abdomen: Firm with guarding throughout consistent with peritonitis. Integumentary exam is warm, dry, with no jaundice. LABS: White count was 12 this morning and 40. INR is down to 244. PH 7.41 and a PaO2 of 152. Lactase trending downwards. Creatinine is 1.9 which is down. LFTs with persistent elevations in bilirubin. I reviewed his imaging. I reviewed his chest x-ray. I had a long discussion with the patient's family regarding her grim prognosis. He is very frail. He has not done well over the last two months since his last operation. He has become very cachectic. Unfortunately now he appears to have developed a perforation. Given the view of his scan, this does not seem to be associated with his ileorectal anastomosis but he does have a history of gastric and duodenal ulcers requiring partial gastrectomy in the distant past. It could be any of these issues. I think he is not a candidate for an operation. At this point I worry that this is the end of his disease. I had this discussion with his common law , his biological daughter is not available. Unfortunately after our initial conversations he underwent a code event. ACLS was initiated and we were able to regain pulse but he was intubated which further solidifies our feelings. I did talk with the family again after this and on repeat exam he was intubated on vasopressors and have advised palliative comfort measures. They are very much in agreement. He has dwindled significantly over the last two months since his last operation, and although he had had a good treatment response, he did have metastatic to the liver colon cancer diagnosed greater than a year ago. Plans are to gather family and to do palliative extubation later. I have offered my condolence and support. We are available, but I think this is the best course of action for this gentleman unfortunately. cc: Larissa Sinha MD
== END 2018-11-05 14:45 | disposition expired | DRG 871 ==
LOC: ED 14:30 → SUATTDRO 20:36 → ICU 20:36
PROVIDERS: ATTEND Internal Medicine
CPT/HCPCS: 36430; 51702; 71010; 71045; 74176; 80053; 82550; 82805; 83605; 83735; 84484; 85025; 85610; 85730; 86850; 86900; 86901; 87040; 87077; 87186; 87324; 93005; 94002; 96361; 96365; 96368; 96372; 99285; 99291; J0171; J1650; J2020; J2270; J2543; J3370; J3430; J7030; J7040; P9017